=== PATIENT | male | born 1945 | race Caucasian/White ===

== ENCOUNTER → 2016-05-26 | Outpatient (CLI) | payer OTHER ==
[~2016-05-26] MED LIST: ADVIN10/60 INH; ALBU1AER9 INH; ASPI81TA28 PO; FENO134C2 PO; FLM4 PO; GLC500 PO; HYDR-5688 PO; LOVA40TA3 PO; METO25TA56 PO; ONDA4TAB10 SL; PANT40TA PO; ROSU10TA24 PO; TAMS0.4C59 PO; TRAZ100T29 PO
== END | disposition home or self-care (01) ==
LOC: C.LABMFLN 08:59
PROVIDERS: ATTEND Urology
DX: N40.0 Benign prostatic hyperplasia without lower urinary tract symptoms (principal)

== ENCOUNTER → 2016-07-07 | Outpatient (CLI) | payer OTHER ==
[2016-07-07 13:29] LABS: BLOOD UREA NITROGEN 16 mg/dl (7-18); BUN/CREATININE RATIO 13.3 (10-20); CALCIUM 9.1 mg/dl (8.5-10.1); CARBON DIOXIDE 30 mmol/L (21-32); CHLORIDE 105 mmol/L (98-107); GLUCOSE 136 mg/dl (70-99); POTASSIUM 4.6 mmol/L (3.5-5.1); SODIUM 141 mmol/L (136-145)
[2016-07-07 13:32] LABS: PHOSPHORUS 2.5 mg/dl (2.5-4.9)
[2016-07-07 13:39] LABS: ESTIMATED AVERAGE GLUCOSE 157 mg/dl; HA1C FLAG Normal (Normal)
== END | disposition home or self-care (01) ==
LOC: C.LABMFLN 11:01
PROVIDERS: ATTEND Family Medicine
DX: E11.9 Type 2 diabetes mellitus without complications (principal)

== ENCOUNTER → 2016-08-14 | Outpatient (CLI) | payer OTHER ==
--- NOTE | 2016-08-14 09:16 | DIAGNOSTIC IMAGING REPORT ---
ULTRASOUND RIGHT UPPER QUADRANT ABDOMEN CLINICAL HISTORY: Right upper quadrant abdominal pain. COMPARISON STUDY: Abdominal CT dated 04/28/2013. TECHNIQUE: Real-time, grayscale, and color flow sonography of the right upper quadrant of the abdomen was performed. Images are reviewed in the transverse and longitudinal planes. FINDINGS: Liver: The liver is enlarged and demonstrates heterogeneously increased echotexture consistent with severe hepatic steatosis. Note that this degrades acoustic penetration of the liver. Fatty sparing is seen adjacent to gallbladder fossa. There is no intrahepatic biliary ductal dilatation. The main portal vein is patent. Gallbladder: A 4 mm gallstone is noted. The gallbladder is otherwise normal in appearance. There is no gallbladder wall thickening or pericholecystic fluid. A sonographic Vu's sign is reportedly absent. The common bile duct measures up to 0.4 cm in diameter. Pancreas: Not well visualized due to overlying bowel gas. Right kidney: Survey images of the right kidney demonstrate normal size and echotexture. There is no hydronephrosis. Ascites: None. IMPRESSION: 1. No acute sonographic abnormality is identified. 2. A small gallstone is noted. 3. Hepatomegaly and severe hepatic steatosis. 4. The pancreas was not well visualized due to overlying bowel gas. Electronically signed by: Silviano Ortega M.D. 08/14/2016 9:15 AM Dictated Date/Time: 08/14/2016 9:10 AM
== END | disposition home or self-care (01) ==
LOC: C.ULTR 08:25
PROVIDERS: ATTEND Family Medicine
DX: R10.11 Right upper quadrant pain (principal); K76.0 Fatty (change of) liver, not elsewhere classified

== ENCOUNTER 2016-08-15 09:35 | Emergency (ER) | payer OTHER ==
[~2016-08-15] VITALS: Ht 172.7 cm; Wt 86.0 kg
[~2016-08-15 09:35] MED LIST changes: -ADVIN10/60 INH; -FLM4 PO; -GLC500 PO; -HYDR-5688 PO; -ONDA4TAB10 SL; -ROSU10TA24 PO
[2016-08-15 09:37] VITALS: TEMP 36.5; Ht 172.7 cm; Wt 86.0 kg
[2016-08-15] MEDS ORDERED: ONDANSETRON INJ 2 MG/ML 2 ML VIAL IV STA (09:54)
[2016-08-15] MEDS: SODIUM CHLORIDE 0.9% 1000ML 1,000 ML IV STA ×2 (09:54→10:23)
[2016-08-15] MEDS ORDERED: GLC500 PO (10:08)
[2016-08-15] MEDS ORDERED: ROSU10TA24 PO (10:08)
[2016-08-15 10:18] LABS: BASO % 0.3 %; BASO ABS # 0.02 K/uL (0-0.2); COMPLETE YES; EOS % 2.9 %; HEMATOCRIT 47.6 % (42-52); IG% 0.1 %; LYMPH % 26.8 %; LYMPH ABS # 1.95 K/uL (1.2-3.4); MEAN CELL VOLUME 96.6 fL (80-100); MEAN CORPUSCULAR HEMOGLOBIN 36.5 pg (25-34); MEAN CORPUSCULAR HGB CONC 37.8 g/dl (32-36); MEAN PLATELET VOLUME 10.8 fL (7.4-10.4); MONO % 11.1 %; NEUT % 58.8 %; PLATELET COUNT 144 K/uL (130-400); RED BLOOD COUNT 4.93 M/uL (4.7-6.1); WHITE BLOOD COUNT 7.27 K/uL (4.8-10.8)
[2016-08-15 10:22] LABS: URINE APPEARANCE CLOUDY (CLEAR); URINE COLOR ORANGE; URINE NITRITE POS (NEG); URINE SPECIFIC GRAVITY 1.027 (1.000-1.030); UROBILINOGEN NEG (NEG)
[2016-08-15 10:33] LABS: MANUAL MICROSCOPIC REQUIRED? NO; REVIEW REQ? YES
[2016-08-15 10:34] LABS: URINE BILIRUBIN NEG (NEG)
[2016-08-15 10:38] LABS: CALCIUM 8.8 mg/dl (8.5-10.1); CREATININE 1.3 mg/dl (0.60-1.40); POTASSIUM 4.4 mmol/L (3.5-5.1)
[2016-08-15 10:49] LABS: URINE EPITHELIAL CELL AUTO 0-5 /lpf (0-5)
--- NOTE | 2016-08-15 11:35 | DIAGNOSTIC IMAGING REPORT ---
CT SCAN OF THE ABDOMEN AND PELVIS WITHOUT CONTRAST CLINICAL HISTORY: Right flank pain COMPARISON STUDY: 04/28/2013 TECHNIQUE: CT scan of the abdomen and pelvis was performed from the lung bases to the proximal femurs. Images are reviewed in the axial, sagittal, and coronal planes. IV contrast was not administered for this examination. CT DOSE: 487.67 mGy.cm FINDINGS: Lower chest: The heart is normal in size and configuration, without pericardial effusion. The lung bases and pleural spaces are clear. Liver: There is hepatic steatosis. No focal masses are visualized. Gallbladder: Unremarkable. Spleen: Normal in size and attenuation. Pancreas: Unremarkable. Adrenal glands: Unremarkable. Kidneys: No renal, ureteral, or bladder calculi are visualized. Bowel: There are no transition zones indicate bowel obstruction. There are scattered air-fluid levels in the colon. There is no acute diverticulitis. There is no nodes of acute appendicitis. Peritoneum: There is no intraperitoneal free air or abdominal ascites. Vasculature: The abdominal aorta is normal in course and caliber. Adenopathy: None. Pelvic viscera: The bladder, and pelvic viscera are unremarkable. Skeletal structures: No destructive osseous lesions are seen. There is partial ankylosis of the SI joints. IMPRESSION: 1. No renal, ureteral, or bladder calculi identified 2. Hepatic steatosis 3. No evidence of bowel obstruction. No evidence of free air 4. No acute inflammatory changes Electronically signed by: Noel Lawson M.D. 08/15/2016 11:34 AM Dictated Date/Time: 08/15/2016 11:24 AM
[2016-08-15] MEDS ORDERED: ONDA4TAB10 SL (12:08)
[2016-08-15 12:44] VITALS: BP 134/92; PULSE 65; O2SAT 96
--- NOTE | 2016-08-15 14:53 | EMERGENCY ROOM VISIT NOTE ---
History Report prepared by Eran: Zahraa Ball Under the Supervision of: Dr. Jacek Fraga M.D. First contact with patient: 09:42 Chief Complaint: DIARRHEA Stated Complaint: SEVERE DIARRHEA History of Present Illness The patient is a 70 year old male who presents to the Emergency Room with complaints of persistent diarrhea starting early yesterday morning. He states that he began getting sick 1 week ago when he went to an emergency room in [place] with abdominal pain. He was instructed to follow up upon returning home and presented to the ED yesterday after he started getting severe diarrhea early yesterday morning. He states that he is going to the bathroom constantly and his stool is all water. Yesterday afternoon, he also experienced some vomiting after eating a small amount of soup. He had some upper abdominal pain, which resolved after vomiting yesterday. He has not vomiting since. Last night he reports he went to the bathroom 4-5 times. He denies any blood in his stools , urinary symptoms, fever, chest pain, or SOB. He had a moment of nausea yesterday, but is currently not nauseous. Currently, he is slightly fatigued. He denies any sick contacts. He has not been on antibiotics recently. Source of History: patient Onset: yesterday morning Position: other (global) Quality: other (diarrhea) Timing: other (persistent) Associated Symptoms: + fatigue, + nausea, + vomiting, No SOB, No abdominal pain, No chest pain, No fevers, No melena, No urinary symptoms Review of Systems See HPI for pertinent positives & negatives. A total of 10 systems reviewed and were otherwise negative. Past Medical & Surgical Medical Problems: (1) Degenerative disc disease, lumbar (2) Diabetes (3) HLD (hyperlipidemia) (4) HTN (hypertension) Surgical Problems: (1) S/P colon resection Family History Patient reports no known family medical history. Social History Smoking Status: Former Smoker Drug Use: none Marital Status: Housing Status: lives with significant other Current/Historical Medications Scheduled Aspirin (Aspirin Ec), 81 MG PO HS Metformin HCl (Metformin HCl), 500 MG PO BID Metoprolol Tartrate (Lopressor) (Lopressor), 25 MG PO BID Ondasetron Odt (Zofran Odt), 4 MG SL Q6H Pantoprazole (Protonix), 40 MG PO QAM Rosuvastatin Calcium (Rosuvastatin Calcium), 10 MG PO DAILY Allergies Coded Allergies: NSAIDs (Verified Adverse Reaction, Mild, UPSET STOMACH/ABDOMINAL PAINS, ) Prednisone (Verified Adverse Reaction, Mild, GI UPSET, ABDOMINAL CRAMPING , 03/11/16) Physical Exam Vital Signs Date Time Temp Pulse Resp B/P Pulse Ox O2 Delivery O2 Flow Rate FiO2 08/15/16 12:44 65 18 134/92 96 08/15/16 11:28 63 18 135/79 97 Room Air 08/15/16 09:37 36.5 70 20 122/86 97 Room Air Physical Exam Constitutional: Vital signs reviewed. Eyes: Pupils are equal round reactive to light. Conjunctiva are noninjected. ENT: Pharynx is clear without erythema or exudate. Mucous membranes are moist. Neck supple without meningeal signs. Respiratory: Clear to auscultation bilaterally. Breath sounds are equal bilaterally. Cardiovascular: Regular rate and rhythm. No rubs or gallops. GI: Soft, nondistended. Bowel sounds are present. Mild epigastric & RUQ tenderness without guarding or Vu's sign. Musculoskeletal: No peripheral edema. No lower extremity tenderness. Integumentary: No cyanosis. Neurological: The patient is awake and alert. No focal deficits. Psychiatric: Normal affect. Medical Decision & Procedures ER Provider Diagnostic Interpretation: Radiology results as stated below per my review and the radiologist's interpretation: CT SCAN OF THE ABDOMEN AND PELVIS WITHOUT CONTRAST CLINICAL HISTORY: Right flank pain COMPARISON STUDY: 04/28/2013 TECHNIQUE: CT scan of the abdomen and pelvis was performed from the lung bases to the proximal femurs. Images are reviewed in the axial, sagittal, and coronal planes. IV contrast was not administered for this examination. CT DOSE: 487.67 mGy.cm FINDINGS: Lower chest: The heart is normal in size and configuration, without pericardial effusion. The lung bases and pleural spaces are clear. Liver: There is hepatic steatosis. No focal masses are visualized. Gallbladder: Unremarkable. Spleen: Normal in size and attenuation. Pancreas: Unremarkable. Adrenal glands: Unremarkable. Kidneys: No renal, ureteral, or bladder calculi are visualized. Bowel: There are no transition zones indicate bowel obstruction. There are scattered air-fluid levels in the colon. There is no acute diverticulitis. There is no nodes of acute appendicitis. Peritoneum: There is no intraperitoneal free air or abdominal ascites. Vasculature: The abdominal aorta is normal in course and caliber. Adenopathy: None. Pelvic viscera: The bladder, and pelvic viscera are unremarkable. Skeletal structures: No destructive osseous lesions are seen. There is partial ankylosis of the SI joints. IMPRESSION: 1. No renal, ureteral, or bladder calculi identified 2. Hepatic steatosis 3. No evidence of bowel obstruction. No evidence of free air 4. No acute inflammatory changes Electronically signed by: Noel Lawson M.D. 08/15/2016 11:34 AM Dictated Date/Time: 08/15/2016 11:24 AM Laboratory Results 08/15/16 10:00 Red Blood Count 4.93, Mean Corpuscular Volume 96.6, Mean Corpuscular Hemoglobin 36.5, Mean Corpuscular Hemoglobin Concent 37.8, Mean Platelet Volume 10.8, Neutrophils (%) (Auto) 58.8, Lymphocytes (%) (Auto) 26.8, Monocytes (%) (Auto) 11.1, Eosinophils (%) (Auto) 2.9, Basophils (%) (Auto) 0.3, Neutrophils # (Auto ) 4.27, Lymphocytes # (Auto) 1.95, Monocytes # (Auto) 0.81, Eosinophils # (Auto ) 0.21, Basophils # (Auto) 0.02 08/15/16 10:00 Test 08/15/16 09:55 08/15/16 10:00 Urine Color ORANGE Urine Appearance CLOUDY (CLEAR) Urine pH 5.0 (4.5-7.5) Urine Specific Pollock 1.027 (1.000-1.030) Urine Protein NEG (NEG) Urine Glucose (UA) NEG (NEG) Urine Ketones TRACE (NEG) Urine Occult Blood NEG (NEG) Urine Nitrite POS (NEG) Urine Bilirubin NEG (NEG) Urine Urobilinogen NEG (NEG) Urine Leukocyte Esterase TRACE (NEG) Urine WBC (Auto) 1-5 /hpf (0-5) Urine RBC (Auto) 0-4 /hpf (0-4) Urine Hyaline Casts (Auto) 1-5 /lpf (0-5) Urine Epithelial Cells (Auto) 0-5 /lpf (0-5) Urine Bacteria (Auto) NEG (NEG) Urine Pathogenic Casts /lpf (0) White Blood Count 7.27 K/uL (4.8-10.8) Red Blood Count 4.93 M/uL (4.7-6.1) Hemoglobin 18.0 g/dL (14.0-18.0) Hematocrit 47.6 % (42-52) Mean Corpuscular Volume 96.6 fL (80-100) Mean Corpuscular Hemoglobin 36.5 pg (25-34) Mean Corpuscular Hemoglobin Concent 37.8 g/dl (32-36) Platelet Count 144 K/uL (130-400) Mean Platelet Volume 10.8 fL (7.4-10.4) Neutrophils (%) (Auto) 58.8 % Lymphocytes (%) (Auto) 26.8 % Monocytes (%) (Auto) 11.1 % Eosinophils (%) (Auto) 2.9 % Basophils (%) (Auto) 0.3 % Neutrophils # (Auto) 4.27 K/uL (1.4-6.5) Lymphocytes # (Auto) 1.95 K/uL (1.2-3.4) Monocytes # (Auto) 0.81 K/uL (0.11-0.59) Eosinophils # (Auto) 0.21 K/uL (0-0.5) Basophils # (Auto) 0.02 K/uL (0-0.2) RDW Standard Deviation 44.5 fL (36.4-46.3) RDW Coefficient of Variation 12.8 % (11.5-14.5) Immature Granulocyte % (Auto) 0.1 % Immature Granulocyte # (Auto) 0.01 K/uL (0.00-0.02) Anion Gap 8.0 mmol/L (3-11) Est Creatinine Clear Calc Drug Dose 54.8 ml/min Estimated GFR () 63.2 Estimated GFR (Non- 54.5 BUN/Creatinine Ratio 17.0 (10-20) Calcium Level 8.8 mg/dl (8.5-10.1) Total Bilirubin 2.5 mg/dl (0.2-1) Direct Bilirubin 0.3 mg/dl (0-0.2) Aspartate Amino Transf (AST/SGOT) 26 U/L (15-37) Alanine Aminotransferase (ALT/SGPT) 71 U/L (12-78) Alkaline Phosphatase 105 U/L (45-117) Total Protein 7.8 gm/dl (6.4-8.2) Albumin 4.4 gm/dl (3.4-5.0) Lipase 121 U/L (73-393) Laboratory results as reviewed by me. Medications Administered Medications (Trade) Dose Ordered Sig/Yee Route Start Time Stop Time Status Last Admin Dose Admin Sodium Chloride (Nss 1000ml) 1,000 ml @ 200 mls/hr Q5H STAT IV 08/15/16 09:54 08/15/16 13:14 DC 08/15/16 10:23 200 MLS/HR ED Course 0947: The patient was evaluated in room B6. A complete history and physical exam was performed. 0954: NSS 1000 ml @ 200 mls/hr IV, Zofran 4 mg IV (refused). 1140: I reevaluated the patient. He says he feels better. He had no tenderness on exam. I discussed with him the test results. We are waiting on the C diff antigen test. 1205: Upon reevaluation, the patient appeared to have improvement of his symptoms. I discussed bre's findings with him. He verbalized agreement of the treatment plan. He was discharged home. Medical Decision This is a 70-year-old male who presents with vomiting and diarrhea with upper abdominal discomfort. Differential diagnosis includes gastroenteritis, dehydration, electrolyte abnormality, cholecystitis, partial bowel obstruction. I did perform a limited focused review of portions of the patient's old chart on the electronic medical record. The patient was seen in the ED yesterday. An US of the RUQ showed a 4 mm gallstone, otherwise no gallbladder abnormalities. I did evaluate the patient as noted above. Patient is presenting with vomiting and diarrhea. He did have upper abdominal pain about a week ago which has since resolved although he does have some slight tenderness in the upper abdomen today. IV access was established. I did treat the patient with IV normal saline. I did order and personally review the patient's urinalysis as described above. He does have some nitrates and Lanoxin and Estrace but no other signs of infection. He denies urinary symptoms. A urine culture was sent. I did order and review the patient's blood work as noted in the electronic medical record. His white blood cell count is not elevated. I did order a CT of the abdomen and pelvis. I did review the images myself as well as the radiology report as described above. There is no evidence of acute process. Gall bladder is unremarkable. A stool culture was sent and is pending. A C. difficile antigen test was done and negative. I did reassess the patient. He is feeling better. His symptoms seem most likely consistent with some type of viral syndrome. I did discuss the test results with him and recommended close follow up with his doctor. He was given return instructions below and discharged with a prescription for Zofran. Impression Primary Impression: Vomiting Additional Impressions: Diarrhea Mild dehydration Scribe Attestation The scribe's documentation has been prepared under my direct and personally reviewed by me in its entirety. I confirm that the note above accurately reflects all work, treatment, procedures, and medical decision making performed by me. Departure Information Dispostion Home / Self-Care Prescriptions Ondasetron Odt (ZOFRAN ODT) 4 Mg Tab 4 MG SL Q6H for Nausea, #6 TAB Prov: Jacek Fraga M.D. 08/15/16 Referrals Nakia Louise M.D. (PCP) Forms HOME CARE DOCUMENTATION FORM, IMPORTANT VISIT INFORMATION, WORK / SCHOOL INSTRUCTIONS Patient Instructions ED Vomiting Diarrhea Nonspecific Ad, My [facility] Additional Instructions You have been examined and treated today on an emergency basis only. This is not a substitute for, or an effort to provide, complete comprehensive medical care. It is impossible to recognize and treat all injuries or illnesses in a single emergency department visit. It is therefore important that you follow up closely with your physician. Call as soon as possible for an appointment. Return for worsening symptoms or if you develop fever, rectal bleeding, abdominal pain, or any other concerning symptoms. Problem Qualifiers Primary Impression: Vomiting Vomiting type: unspecified Vomiting Intractability: non-intractable Nausea presence: unspecified Qualified Codes: R11.10 - Vomiting, unspecified Additional Impressions: Diarrhea Diarrhea type: unspecified type Qualified Codes: R19.7 - Diarrhea, unspecified
[2016-09-05] MEDS ORDERED: TRAZ100T29 PO (08:39)
[2016-09-05] MEDS ORDERED: ADVIN10/60 INH (08:39)
[2016-09-11] MEDS ORDERED: HYDR-5688 PO (08:16)
== END 2016-08-15 12:45 | disposition home or self-care (01) ==
LOC: C.EDB 09:38
DX: E86.0 Dehydration (principal); R11.10 Vomiting, unspecified; R19.7 Diarrhea, unspecified; I10 Essential (primary) hypertension; E78.5 Hyperlipidemia, unspecified; E11.9 Type 2 diabetes mellitus without complications; M51.06 Intervertebral disc disorders with myelopathy, lumbar region; Z98.890 Other specified postprocedural states; Z87.891 Personal history of nicotine dependence; Z79.82 Long term (current) use of aspirin; Z79.84 Long term (current) use of oral hypoglycemic drugs; Z79.899 Other long term (current) drug therapy; Z88.8 Allergy status to other drugs, medicaments and biological substances

== ENCOUNTER 2016-09-11 05:03 | Observation (INO) | payer OTHER ==
[2016-09-05 08:40] VITALS: BMI 29.0
--- NOTE | 2016-09-05 09:18 | PAT Medication Instructions ---
Service Date Sep 05, 2016. Current Home Medication List Aspirin (Aspirin Ec), 81 MG PO HS Fluticasone Prop/Salmeterol (Advair Diskus 100/50 60 Dose), 1 PUFF INH DAILY PRN for prn Metformin HCl (Metformin HCl), 500 MG PO BID Metoprolol Tartrate (Lopressor) (Lopressor), 12.5 MG PO BID Pantoprazole (Protonix), 40 MG PO QAM Rosuvastatin Calcium (Rosuvastatin Calcium), 10 MG PO QAM Trazodone Hcl (Trazodone), 100 MG PO HS Medication Instructions For Your Scheduled Surgery - Check with surgeon for instructions: Aspirin (Aspirin Ec), 81 MG PO HS - Hold the following medications 48 hours prior to surgery: Metformin HCl (Metformin HCl), 500 MG PO BID - Take the following medications the morning of surgery with a sip of water: Pantoprazole (Protonix), 40 MG PO QAM Rosuvastatin Calcium (Rosuvastatin Calcium), 10 MG PO QAM Metoprolol Tartrate (Lopressor) (Lopressor), 12.5 MG PO BID Fluticasone Prop/Salmeterol (Advair Diskus 100/50 60 Dose), 1 PUFF INH DAILY PRN for prn - Take the following medications as scheduled the night before surgery: Trazodone Hcl (Trazodone), 100 MG PO HS Metoprolol Tartrate (Lopressor) (Lopressor), 12.5 MG PO BID Fluticasone Prop/Salmeterol (Advair Diskus 100/50 60 Dose), 1 PUFF INH DAILY PRN for prn If you have any questions please call us at [phone] (Maggie An PA-C) or [phone] or [phone]
[~2016-09-11] VITALS: Ht 172.7 cm; Wt 88.5 kg
[2016-09-11] VITALS (10 sets, daily range): BP systolic 130–147; BP diastolic 84–95; PULSE 53–68; TEMP 36.3–36.9; O2SAT 95–98; Ht 172.7 cm; Wt 88.5 kg
[~2016-09-11 05:03] MED LIST changes: +ADVIN10/60 INH; -ALBU1AER9 INH; -FENO134C2 PO; +GLC500 PO; -LOVA40TA3 PO; +ROSU10TA24 PO; -TAMS0.4C59 PO
[2016-09-11] MEDS ORDERED: LACTATED RINGER'S 1000ML IV SCH (06:00)
[2016-09-11] MEDS ORDERED: CEFUROXIME IV 1,500 MG in DEXTROSE 5% 100ML IV SCH (06:00)
--- NOTE | 2016-09-11 06:49 | History & Physical Bridge Note ---
H&P Re-Evaluation Bridge Note: I have examined the patient, reviewed the History & Physical and in the interval since the performance of the History & Physical I have noted the following changes of clinical significance: No changes noted
[2016-09-11] MEDS ORDERED: ROCURONIUM BROMID 50MG/5ML SYR ONE (06:53)
[2016-09-11] MEDS ORDERED: LIDOCAINE HCL 2% 2 ML VIAL (20MG/ML) ONE (06:53)
[2016-09-11] MEDS ORDERED: PROPOFOL IV EMULSION 10 MG/ML 20 ML VIAL IV ONE (06:53)
[2016-09-11] MEDS ORDERED: MIDAZOLAM HCL 1 MG/ML 2ML VIAL ONE (06:55)
[2016-09-11] MEDS ORDERED: FENTANYL CITRATE INJ 50 MCG/1 ML 2 ML VIAL ONE ×2 (06:55→07:37)
[2016-09-11] MEDS ORDERED: BUPIVACAINE 0.5 % 5 MG/1 ML MPF 30ML VIAL ONE (06:57)
[2016-09-11] MEDS ORDERED: CONRAY 60% 50 ML VIAL ONE (06:57)
[2016-09-11] MEDS ORDERED: DEXAMETHASONE SOD INJ 4 MG/ML VIAL ONE (07:23)
[2016-09-11] MEDS ORDERED: ONDANSETRON INJ 2 MG/ML 2 ML VIAL ONE (07:23)
[2016-09-11] MEDS ORDERED: GLYCOPYRROLATE INJ 0.2 MG/ML VIAL ONE (07:23)
[2016-09-11] MEDS ORDERED: NEOSTIGMINE METHYLSULFATE 5 MG/5 ML SYR ONE (07:23)
--- NOTE | 2016-09-11 08:07 | [facility] Post Operative Brief Note ---
Immediate Operative Summary Operative Date Sep 11, 2016. Pre-Operative Diagnosis Biliary Colic, Gallstones Post-Operative Diagnosis Biliary Colic, Gallstones, chronic cholecystitis, adhesions Procedure(s) Performed Laparoscopic Cholecystectomy, lysis of adhesions Surgeon Dr. Maloney Small Business Director Surgeon(s) JOYCELYN Akbar Estimated Blood Loss 20 ml Findings omental and small bowel adhesions and adhesions to gallbladder Specimens A. Gallbladder Anesthesia gen Complication(s) None Disposition Recovery Room / PACU
[2016-09-11] MEDS ORDERED: MoRPHine SULFATE 4 MG/ML 1 ML CARP\\VIAL IV PRN (08:15)
[2016-09-11] MEDS ORDERED: ONDANSETRON INJ 2 MG/ML 2 ML VIAL IV PRN ×2 (08:15→08:30)
[2016-09-11] MEDS ORDERED: MoRPHine SULFATE 2 MG/ML CARP IV PRN (08:15)
[2016-09-11] MEDS ORDERED: HYDROCODONE/ACETAMOPHEN 5/325MG TAB PO PRN (08:15)
[2016-09-11] MEDS ORDERED: PROMETHAZINE HCL INJ 25 MG in SODIUM CHLORIDE 0.9% 50ML 50 ML IV PRN (08:15)
[2016-09-11] MEDS ORDERED: HYDR-5688 PO (08:16)
--- NOTE | 2016-09-11 08:18 | Discharge Instructions ---
Discharge Instructions Date of Service Sep 11, 2016. Admission Reason for Admission: Gallstones, Biliary Colic, Diabetes Discharge Discharge Diagnosis / Problem: chronic cholecystitis, adhesions Discharge Goals Goal(s): Decrease discomfort, Improve function, Improve disease control Activity Recommendations Activity Limitations: as noted below Lifting Limitations: no more than 10 pounds Exercise/Sports Limitations: until after follow-up appointment May Resume Sexual Activity: when tolerated Shower/Bathe: tomorrow Driving or Machine Use: resume 3 days after discharge SPECIAL CARE INSTRUCTIONS: * Cover incisions and change daily for comfort/drainage. * May use ibuprofen for pain as tolerated. * Expect some swelling and bruising. Call your doctor if: * Temperature above 101 degrees * Pain not relieved by pain medicine ordered * There is increased drainage or redness from any incision * You have any unanswered questions or concerns [phone]. FOLLOW UP VISIT: If not already scheduled, please call the office for a follow-up visit. for next week- some sutures and wound check OFFICE PHONE NUMBER: Dr. Maloney Office . Current Hospital Diet Patient's current hospital diet: Regular Diet Discharge Diet Recommended Diet: Regular Diet Procedures Procedures Performed: Laparoscopic Cholecystectomy, lysis of adhesions Pending Studies Studies pending at discharge: no Laboratory Results Hemoglobin A1c Test 07/07/16 10:50 Range/Units Estimated Average Glucose 157 mg/dl Hemoglobin A1c 7.1 H 4.5-5.6 % Medical Emergencies . Who to Call and When: Medical Emergencies: If at any time you feel your situation is an emergency, please call 911 immediately. . Non-Emergent Contact Non-Emergency issues call your: Primary Care Provider, Surgeon . "Provider Documentation" section prepared by Ray Maloney. . VTE Core Measure Inpt VTE Proph given/why not?: SCD's
[2016-09-11] MEDS ORDERED: LABETALOL HCL IV 5 MG/ML 20ML IV PRN (08:30)
[2016-09-11] MEDS ORDERED: FLUMAZENIL 0.1 MG/1 ML 10 ML VIAL IV PRN (08:30)
[2016-09-11] MEDS ORDERED: ATROPINE SULFATE 0.1 MG/ML 5ML SYR IV PRN (08:30)
[2016-09-11] MEDS ORDERED: PROMETHAZINE HCL INJ 12.5 MG in SODIUM CHLORIDE 0.9% 50ML 50 ML IV PRN ×2 (08:30→11:15)
[2016-09-11] MEDS ORDERED: EpHEDrine SULFATE INJ 50 MG/ML AMP IV PRN (08:30)
[2016-09-11] MEDS ORDERED: NALOXONE HCL 0.4 MG/1 ML VIAL/CARP IV PRN (08:30)
[2016-09-11] MEDS ORDERED: HYDROmorphone INJ 1 MG/ML SYR IV PRN (08:30)
--- NOTE | 2016-09-11 08:49 | Anesthesiology Progress Note ---
Anesthesia Post Op Note Date & Time Sep 11, 2016 at 08:48 Vital Signs Pain Intensity: 0 Vital Signs Past 12 Hours Date Time Temp Pulse Resp B/P Pulse Ox O2 Delivery O2 Flow Rate FiO2 09/11/16 08:45 56 18 117/78 100 Nasal Cannula 3 09/11/16 08:35 56 18 113/76 100 Mask 5 09/11/16 08:25 54 20 120/73 100 Mask 10 09/11/16 08:17 36.7 56 20 127/70 99 Mask 10 09/11/16 05:39 36.5 54 18 147/86 96 Room Air Notes Mental Status: alert / awake / arousable, participated in evaluation Pt Amnestic to Procedure: Yes Nausea / Vomiting: adequately controlled Pain: adequately controlled Airway Patency, RR, SpO2: stable & adequate BP & HR: stable & adequate Hydration State: stable & adequate Anesthetic Complications: no major complications apparent
[2016-09-11] MEDS ORDERED: IV FLUIDS COMPLETED PRN (09:15)
[2016-09-11] MEDS: LACTATED RINGER'S 1000ML 1,000 ML IV SCH ×2 (09:25→21:00)
--- NOTE | 2016-09-11 09:27 | OPERATIVE REPORT ---
DATE OF OPERATION: 09/11/2016 NAME OF OPERATION: Laparoscopic cholecystectomy with omental lysis of adhesions. STAFF SURGEON: Dr. Maloney. LIVE GAMES DEALER: Juvenal Henry PA-C. ANESTHESIA: General. PROCEDURE: The patient was brought in the operating room and placed on the operating table in supine position. His abdomen was and prepped and draped in usual fashion. The patient did have a midline incision with scar from previous colon surgery from above the umbilicus inferiorly. Incision was made at the level of the umbilicus and just above through the previous scar, dissecting to the right, identifying the fascia. The fascia was then opened visibly and it was apparent that the patient had significant adhesions which appeared to be omental. At this point, I thought it was prudent to proceed to the right upper quadrant. Again, the skin and subcutaneous tissue was anesthetized using 0.5% plain Marcaine at all incisions. Incision was made in the right upper quadrant, carrying dissection down, identifying the fascia, and then under visualization, entering the abdominal cavity, placing a 5 mm port, and then producing a pneumoperitoneum. At this point, a 5 mm camera was passed and it was evident that the patient had significant omental adhesions and small-bowel adhesions. At this point, I was able to place a second port in the midline superiorly, and then using a 5 mm camera, I was able to place a third 5 mm port in the mid clavicular line on the right side. At this point, I was able to take some of the omental adhesions down in the midline and place an 11 mm port under visualization. At this point, the gallbladder was grasped and retracted, it was aspirated off bile. There were adhesions to the gallbladder, these were taken down, and then dissection carried out at the neftali hepatis, identifying the cystic duct and cystic artery. These were clipped and transected and then the gallbladder dissected away from the liver bed in the usual fashion. Gallbladder was placed in an Endobag. After appropriate hemostasis and irrigation, the Endobag was removed under visualization through the 11 mm port. All ports were then removed. The fascia in the right upper quadrant and periumbilical area was closed using 0 Vicryl suture and also #1 PDS suture. The incisions were then all closed using 2-0 plain catgut for the subcutaneous tissue and 4-0 nylon for the skin. The patient was then transferred to recovery room in stable condition. I attest to the content of the Intraoperative Record and any orders documented therein. Any exceptio ns are noted below.
[2016-09-11] MEDS ORDERED: GLUCOSE 10 TABS/TUBE PO PRN (11:30)
[2016-09-11] MEDS ORDERED: GLUCAGON FOR INJ 1 MG VIAL SQ PRN (11:30)
[2016-09-11] MEDS ORDERED: GLUCOSE 40% GEL 15 GM TUBE PO PRN (11:30)
[2016-09-11] MEDS ORDERED: DEXTROSE 50% 50 ML SYR IV PRN (11:30)
--- NOTE | 2016-09-11 11:40 | Medical Consult ---
Consultation Date of Consultation: Sep 11, 2016. Attending Physician: Ray Maloney M.D. Reason for Consultation: Medical management History of Present Illness This is a 70 y/o male with a history of DM II, HTN, HLD, asthma, GERD, BPH, and insomnia who presents s/p laparoscopic cholecystectomy with Dr. Maloney on 09/11 for medical management. The patient reports feeling well postoperatively, although he does complain of soreness in his RUQ that is getting worse. He ate his lunch without difficulty and has already urinated. He denies passing any gas or having a bowel movement post op. The patient denies fevers, chills, sweats, chest pain, palpitations, claudication, cough, wheezing, shortness of breath, nausea, vomiting, abdominal pain, dysuria, hematuria, urinary retention , paralysis, weakness, numbness and tingling. Past Medical/Surgical History Medical Problems: DM II HTN HLD Asthma GERD BPH Insomnia H/o tubular adenoma of colon Family History Abdominal aortic aneurysm (AAA) Colon cancer Coronary artery disease Stroke Social History Smoking Status: Former Smoker Smokeless Tobacco Use: No Alcohol Use: none Drug Use: none Marital Status: Housing Status: lives with significant other Allergies Coded Allergies: NSAIDs (Verified Adverse Reaction, Mild, UPSET STOMACH/ABDOMINAL PAINS, ) Prednisone (Verified Adverse Reaction, Mild, GI UPSET, ABDOMINAL CRAMPING , 09/11/16) Current Inpatient Medications Current Inpatient Medications Medications (Trade) Dose Ordered Sig/Yee Route Start Time Stop Time Status Last Admin Dose Admin Cefuroxime Sodium 1500 mg/Dextrose 115 ml @ 230 mls/hr TODAY@0600 IV 09/11/16 06:00 09/11/16 15:59 09/11/16 06:57 230 MLS/HR Lactated Ringer's 1,000 ml @ 75 mls/hr [id number] IV 09/11/16 08:07 10/11/16 08:06 Cefuroxime Sodium/ Dextrose (Zinacef Iv/D5 100ml) 115 ml @ 200 mls/hr Q8 IV 09/11/16 14:00 09/21/16 13:59 Acetaminophen/ Hydrocodone Bitart ([place] 5/325 Tab) 1 tab Q4 PRN PO 09/11/16 08:15 09/25/16 08:14 Acetaminophen/ Hydrocodone Bitart ([place] 5/325 Tab) 2 tab Q4 PRN PO 09/11/16 08:15 09/25/16 08:14 Morphine Sulfate (MoRPHine SULFATE INJ) 2 mg Q4H PRN IV 09/11/16 08:15 09/25/16 08:14 Morphine Sulfate 4 mg 4 mg Q4H PRN IV 09/11/16 08:15 09/25/16 08:14 Promethazine HCl/ Sodium Chloride (Phenergan Inj/ Nss 50ml) 51 ml @ 204 mls/hr Q6H PRN IV 09/11/16 08:15 10/11/16 08:14 Ondansetron HCl (Zofran Inj) 4 mg Q6H PRN IV 09/11/16 08:15 10/11/16 08:14 Hydromorphone HCl (Dilaudid Inj) 0.25 mg Q5M PRN IV 09/11/16 08:30 09/11/16 13:30 Naloxone HCl (Narcan Inj) 0.2 mg Q2M PRN IV 09/11/16 08:30 09/11/16 13:30 Flumazenil (Romazicon Inj) 0.2 mg Q2M PRN IV 09/11/16 08:30 09/11/16 13:30 Ondansetron HCl 4 mg 4 mg ONE PRN IV 09/11/16 08:30 09/11/16 13:30 Promethazine HCl/ Sodium Chloride (Phenergan Inj/ Nss 50ml) 50.5 ml @ 202 mls/hr ONE PRN IV 09/11/16 08:30 09/11/16 13:30 Labetalol HCl (Normodyne IV) 5 mg Q5M PRN IV 09/11/16 08:30 09/11/16 13:30 Ephedrine Sulfate (EpHEDrine SULFATE INJ) 5 mg Q5M PRN IV 09/11/16 08:30 09/11/16 13:30 Atropine Sulfate (Atropine Sulfate 0.1MG/Ml Inj) 0.5 mg Q1M PRN IV 09/11/16 08:30 09/11/16 13:30 Miscellaneous 1 ea 1 ea PRN PRN N/A 09/11/16 09:15 09/11/17 09:14 Promethazine HCl/ Sodium Chloride (Phenergan Inj/ Nss 50ml) 50.5 ml @ 204 mls/hr Q6H PRN IV 09/11/16 11:15 10/11/16 11:14 Review of Systems See HPI for pertinent positives and negatives. All other systems reviewed and negative. Physical Exam Date Time Temp Pulse Resp B/P Pulse Ox O2 Delivery O2 Flow Rate FiO2 09/11/16 11:10 36.3 64 16 142/85 96 Room Air 09/11/16 10:14 36.4 68 17 136/88 97 Nasal Cannula 2.0 09/11/16 09:40 36.4 53 17 133/87 98 Nasal Cannula 09/11/16 08:55 36.7 56 18 128/85 99 Nasal Cannula 3 09/11/16 08:45 56 18 117/78 100 Nasal Cannula 3 09/11/16 08:35 56 18 113/76 100 Mask 5 09/11/16 08:25 54 20 120/73 100 Mask 10 09/11/16 08:17 36.7 56 20 127/70 99 Mask 10 09/11/16 05:39 36.5 54 18 147/86 96 Room Air General Appearance: WD/WN, no apparent distress Head: normocephalic, atraumatic Eyes: normal inspection, PERRL, EOMI, + pertinent finding (pinpoint pupils bilaterally) ENT: normal ENT inspection, hearing grossly normal, pharynx normal Neck: supple, no JVD, trachea midline Respiratory/Chest: lungs clear, normal breath sounds, no respiratory distress Cardiovascular: regular rate, rhythm, no gallop, no murmur Abdomen/GI: normal bowel sounds, soft, + tenderness (RUQ, incision sites TTP), + pertinent finding (incision sites dressed, c/d/i) Extremities/Musculoskelatal: normal inspection, no calf tenderness, no pedal edema Neurologic/Psych: alert, normal mood/affect, oriented x 3 Skin: normal color, warm/dry, no rash Laboratory Results Last 24 Hours Test 09/11/16 05:49 09/11/16 08:32 09/11/16 09:26 Bedside Glucose 147 mg/dl 164 mg/dl 164 mg/dl Assessment & Plan 70 y/o male with a history of DM II, HTN, HLD, asthma, GERD, BPH, and insomnia who presents s/p laparoscopic cholecystectomy with Dr. Maloney on 09/11 for medical management. -Pain management, DVT prophylaxis per primary team -POD #0 -Tolerating PO diet, no voiding difficulties Diabetes mellitus type 2--Last HgbA1c was 7.1 on 07/07/16 -Hold metformin -Insulin sliding scale -Check BSGs q ac and qhs HTN--stable -Continue Lopressor 12.5 mg PO qd HLD--stable -Continue rosuvastatin 10 mg PO qd Asthma -Continue Advair BID, ProAir prn GERD -Continue Protonix 40 mg PO qd Insomnia -Continue trazodone 100 mg PO qhs Thank you for this consultation. We will continue to follow. Attending Admission Note & Attestation: Pt seen/examined, chart reviewed, and care plan d/w JOYCELYN Catalan. I agree w/ the nuñez components of her consult documentation. 70yo male with T2DM/HTN who underwent elective lap sylvain today by Dr. Maloney. Post-op resting comfortably. Denied sob/cough. Mild abdominal pain. Tolerating food/liquid. VSS o2 sats nl gen - nad heart - RRR lungs - CTA b/l except mild dry rales bases abd - mild distension, BS+, no HSM, incisions covered w/ clean dressings, mild incisional tenderness A/P: s/p lap sylvain T2DM - agree w/ Ms. Catalan's plan; add lantus daily if needed HTN - cont home meds asthma - not in exacerbation Kelvin Lowe MD
[2016-09-11 12:58] LABS: BASO % 0.3 %; BASO ABS # 0.02 K/uL (0-0.2); COMPLETE YES; EOS % 0.3 %; HEMATOCRIT 42.3 % (42-52); IG% 0.1 %; LYMPH % 14.1 %; LYMPH ABS # 1.05 K/uL (1.2-3.4); MEAN CELL VOLUME 97.9 fL (80-100); MEAN CORPUSCULAR HEMOGLOBIN 35.4 pg (25-34); MEAN CORPUSCULAR HGB CONC 36.2 g/dl (32-36); MEAN PLATELET VOLUME 10.9 fL (7.4-10.4); MONO % 1.9 %; NEUT % 83.3 %; PLATELET COUNT 137 K/uL (130-400); RED BLOOD COUNT 4.32 M/uL (4.7-6.1); WHITE BLOOD COUNT 7.44 K/uL (4.8-10.8)
[2016-09-11] MEDS: INSULIN ASPART 100 UNITS/ML 3 ML PEN SC SCH ×3 (13:12→20:59)
[2016-09-11] MEDS: CEFUROXIME IV 1,500 MG in DEXTROSE 5% 100ML 100 ML IV SCH ×2 (13:15→21:03)
[2016-09-11 13:42] LABS: BUN/CREATININE RATIO 14.9 (10-20); CREATININE 1.2 mg/dl (0.60-1.40); POTASSIUM 4.1 mmol/L (3.5-5.1)
[2016-09-11 13:45] LABS: CALCIUM 8.7 mg/dl (8.5-10.1)
[2016-09-11] MEDS: DOCUSATE SODIUM/SENNA 50/8.6MG TAB PO SCH ×2 (14:14→20:55)
[2016-09-11] MEDS: HYDROCODONE/ACETAMOPHEN 5/325MG TAB PO PRN (22:13)
[2016-09-12 03:40] VITALS: BP 146/81; PULSE 63; TEMP 36.5; O2SAT 97
[2016-09-12] MEDS: HYDROCODONE/ACETAMOPHEN 5/325MG TAB PO PRN ×2 (04:50→16:30)
[2016-09-12] MEDS: CEFUROXIME IV 1,500 MG in DEXTROSE 5% 100ML 100 ML IV SCH ×3 (06:01→21:49)
[2016-09-12 06:04] LABS: BASO % 0.2 %; BASO ABS # 0.02 K/uL (0-0.2); COMPLETE YES; EOS % 0.5 %; HEMATOCRIT 40.6 % (42-52); IG% 0.3 %; LYMPH % 19.8 %; LYMPH ABS # 2.29 K/uL (1.2-3.4); MEAN CELL VOLUME 97.8 fL (80-100); MEAN CORPUSCULAR HEMOGLOBIN 35.7 pg (25-34); MEAN CORPUSCULAR HGB CONC 36.5 g/dl (32-36); MEAN PLATELET VOLUME 10.9 fL (7.4-10.4); MONO % 7.3 %; NEUT % 71.9 %; PLATELET COUNT 146 K/uL (130-400); RED BLOOD COUNT 4.15 M/uL (4.7-6.1); WHITE BLOOD COUNT 11.57 K/uL (4.8-10.8)
--- NOTE | 2016-09-12 06:06 | Surgery Progress Note ---
Surgery Progress Note Date of Service Sep 12, 2016. Subjective Post OP Day: 1 some urinary retention- feels ok now- req str cath during night Objective Vital Signs: Date Time Temp Pulse Resp B/P Pulse Ox O2 Delivery O2 Flow Rate FiO2 09/12/16 03:40 36.5 63 18 146/81 97 Room Air 09/12/16 00:00 Room Air 09/11/16 22:51 36.5 59 16 130/85 97 Room Air 09/11/16 19:22 36.9 62 18 134/87 96 Room Air 09/11/16 16:00 96 Room Air 09/11/16 15:16 36.8 62 18 133/84 96 Room Air 09/11/16 12:10 62 18 146/95 96 Room Air 09/11/16 11:10 36.3 64 16 142/85 96 Room Air 09/11/16 10:14 36.4 68 17 136/88 97 Nasal Cannula 2.0 09/11/16 09:40 36.4 53 17 133/87 98 Nasal Cannula 09/11/16 09:10 95 Nasal Cannula 2.0 09/11/16 09:10 95 Nasal Cannula 2.0 09/11/16 09:10 36.5 58 16 137/87 95 Nasal Cannula 2.0 09/11/16 08:55 36.7 56 18 128/85 99 Nasal Cannula 3 09/11/16 08:45 56 18 117/78 100 Nasal Cannula 3 09/11/16 08:35 56 18 113/76 100 Mask 5 09/11/16 08:25 54 20 120/73 100 Mask 10 09/11/16 08:17 36.7 56 20 127/70 99 Mask 10 General Appearance: no apparent distress Respiratory/Chest: no respiratory distress Abdomen: soft Incision(s): intact Laboratory Results: Results Past 24 Hours Test 09/11/16 08:32 09/11/16 09:26 09/11/16 11:55 09/11/16 12:00 Range/Units Bedside Glucose 164 164 220 70-99 mg/dl White Blood Count 7.44 4.8-10.8 K/uL Red Blood Count 4.32 4.7-6.1 M/uL Hemoglobin 15.3 14.0-18.0 g/dL Hematocrit 42.3 42-52 % Mean Corpuscular Volume 97.9 80-100 fL Mean Corpuscular Hemoglobin 35.4 25-34 pg Mean Corpuscular Hemoglobin Concent 36.2 32-36 g/dl Platelet Count 137 130-400 K/uL Mean Platelet Volume 10.9 7.4-10.4 fL Neutrophils (%) (Auto) 83.3 % Lymphocytes (%) (Auto) 14.1 % Monocytes (%) (Auto) 1.9 % Eosinophils (%) (Auto) 0.3 % Basophils (%) (Auto) 0.3 % Neutrophils # (Auto) 6.20 1.4-6.5 K/uL Lymphocytes # (Auto) 1.05 1.2-3.4 K/uL Monocytes # (Auto) 0.14 0.11-0.59 K/uL Eosinophils # (Auto) 0.02 0-0.5 K/uL Basophils # (Auto) 0.02 0-0.2 K/uL RDW Standard Deviation 45.8 36.4-46.3 fL RDW Coefficient of Variation 12.7 11.5-14.5 % Immature Granulocyte % (Auto) 0.1 % Immature Granulocyte # (Auto) 0.01 0.00-0.02 K/uL Sodium Level 139 136-145 mmol/L Potassium Level 4.1 3.5-5.1 mmol/L Chloride Level 103 98-107 mmol/L Carbon Dioxide Level 28 21-32 mmol/L Anion Gap 8.0 3-11 mmol/L Blood Urea Nitrogen 18 7-18 mg/dl Creatinine 1.20 0.60-1.40 mg/dl Est Creatinine Clear Calc Drug Dose 60.2 ml/min Estimated GFR () 69.6 Estimated GFR (Non- 60.1 BUN/Creatinine Ratio 14.9 10-20 Random Glucose 229 70-99 mg/dl Calcium Level 8.7 8.5-10.1 mg/dl Test 09/11/16 17:02 09/11/16 20:17 09/12/16 05:24 Range/Units Bedside Glucose 225 234 70-99 mg/dl Assessment & Plan 09/12/16- s/p ezekiel sylvain, had some ur retention- monitor progress- may need norman with leg bag for home. Possible d/c later today
[2016-09-12 06:38] LABS: BUN/CREATININE RATIO 14.3 (10-20); CALCIUM 8.5 mg/dl (8.5-10.1); CREATININE 1.1 mg/dl (0.60-1.40); POTASSIUM 3.8 mmol/L (3.5-5.1)
[2016-09-12 07:45] VITALS: BP 144/91; PULSE 52; TEMP 36.4; O2SAT 98
[2016-09-12] MEDS ORDERED: TAMSULOSIN HCL 0.4 MG CAP PO ONE (08:00)
--- NOTE | 2016-09-12 09:01 | Anesthesiology Progress Note ---
Anesthesia Post Op Note Date & Time Sep 12, 2016 at 08:59 Vital Signs Pain Intensity: 2.0 Vital Signs Past 12 Hours Date Time Temp Pulse Resp B/P Pulse Ox O2 Delivery O2 Flow Rate FiO2 09/12/16 07:45 36.4 52 16 144/91 98 Room Air 09/12/16 07:20 Room Air 09/12/16 03:40 36.5 63 18 146/81 97 Room Air 09/12/16 00:00 Room Air 09/11/16 22:51 36.5 59 16 130/85 97 Room Air Notes Mental Status: alert / awake / arousable, participated in evaluation Pt Amnestic to Procedure: Yes Nausea / Vomiting: adequately controlled Pain: adequately controlled Airway Patency, RR, SpO2: stable & adequate BP & HR: stable & adequate Hydration State: stable & adequate Anesthetic Complications: no major complications apparent
--- NOTE | 2016-09-12 09:20 | Progress Note ---
Subjective Date of Service: Sep 12, 2016. Subjective Pt evaluation today including: conversation w/ patient, physical exam, review of inpatient medication list Had acute urinary retention overnight, reports it happens with him post- procedure. Follows with urologist outpatient and seen recently and was never told of any issues or that he may have BPH. Otherwise, tolerated breakfast, no flatus/BM at time of exam. Problem List Medical Problems: (1) Bursitis of right hip Status: Acute (2) Herniated disc Status: Acute (3) Lumbar radiculopathy Status: Acute (4) Sialoadenitis of submandibular gland Status: Acute Review of Systems All Other Systems: Reviewed and Negative Medications Acetaminophen/ Hydrocodone Bitart ([place] 5/325 Tab) 1 tab Q4 PRN PO Last administered on 09/12/16 16:30; Admin Dose 1 TAB; Start 09/11/16 at 08:15; Stop 09/25/16 at 08:14 Acetaminophen/ Hydrocodone Bitart ([place] 5/325 Tab) 2 tab Q4 PRN PO; Start at 08:15; Stop 09/25/16 at 08:14 Cefuroxime Sodium/ Dextrose (Zinacef Iv/D5 100ml) 115 ml @ 200 mls/hr Q8 IV Last administered on 09/12/16 13:59; Admin Dose 200 MLS/HR; Start 09/11/16 at 14:00; Stop 09/21/16 at 13:59 Dextrose (Dextrose 50% 50ML Syringe) 25-50ML OF 50% DW IV FOR... UD PRN IV; Start 09/11/16 at 11:30; Stop 10/11/16 at 11:29 Glucagon (Glucagon Inj) 1 mg UD PRN SQ; Start 09/11/16 at 11:30; Stop 10/11/16 at 11:29 Glucose (Glucose 40% Gel) 15-30 GRAMS 15 GRAMS... UD PRN PO; Start 09/11/16 at 11:30; Stop 10/11/16 at 11:29 Glucose (Glucose Chew Tab) 4-8 Tablets 4 Tabl... UD PRN PO; Start 09/11/16 at 11:30; Stop 10/11/16 at 11:29 Insulin Aspart (novoLOG ASPART) SLIDING SCALE G... ACHS SC Last administered on 09/12/16 14:02; Admin Dose 1 UNITS; Start 09/11/16 at 12:00; Stop 10/11/16 at 11:59 Magnesium Hydroxide (Milk Of Magnesia Susp) 30 ml BID PO Last administered on 09:24; Admin Dose 30 ML; Start 09/12/16 at 08:00; Stop 10/12/16 at 07:59 Miscellaneous 1 ea 1 ea PRN PRN N/A; Start 09/11/16 at 09:15; Stop 09/11/17 at 09:14 Morphine Sulfate (MoRPHine SULFATE INJ) 2 mg Q4H PRN IV Last administered on 00:09; Admin Dose 2 MG; Start 09/11/16 at 08:15; Stop 09/25/16 at 08:14 Morphine Sulfate 4 mg 4 mg Q4H PRN IV; Start 09/11/16 at 08:15; Stop 09/25/16 at 08:14 Ondansetron HCl (Zofran Inj) 4 mg Q6H PRN IV; Start 09/11/16 at 08:15; Stop at 08:14 Promethazine HCl/ Sodium Chloride (Phenergan Inj/ Nss 50ml) 50.5 ml @ 204 mls/ hr Q6H PRN IV; Start 09/11/16 at 11:15; Stop 10/11/16 at 11:14 Promethazine HCl/ Sodium Chloride (Phenergan Inj/ Nss 50ml) 51 ml @ 204 mls/hr Q6H PRN IV; Start 09/11/16 at 08:15; Stop 10/11/16 at 08:14 Senna/Docusate Sodium (Senokot S Tab) 1 tab BID PO Last administered on 09:23; Admin Dose 1 TAB; Start 09/11/16 at 14:00; Stop 10/11/16 at 13:59 Tamsulosin HCl (Flomax Cap) 0.4 mg HS PO; Start 09/12/16 at 21:00; Stop at 20:59 Objective Vital Signs Date Time Temp Pulse Resp B/P Pulse Ox O2 Delivery O2 Flow Rate FiO2 09/12/16 07:45 36.4 52 16 144/91 98 Room Air 09/12/16 07:20 Room Air 09/12/16 03:40 36.5 63 18 146/81 97 Room Air 09/12/16 00:00 Room Air 09/11/16 22:51 36.5 59 16 130/85 97 Room Air 09/11/16 19:22 36.9 62 18 134/87 96 Room Air 09/11/16 16:00 96 Room Air 09/11/16 15:16 36.8 62 18 133/84 96 Room Air 09/11/16 12:10 62 18 146/95 96 Room Air 09/11/16 11:10 36.3 64 16 142/85 96 Room Air 09/11/16 10:14 36.4 68 17 136/88 97 Nasal Cannula 2.0 09/11/16 09:40 36.4 53 17 133/87 98 Nasal Cannula Physical Exam Comments: nad, aox3 anicteric s1 s2 rrr, no murmurs appreciated ctab no w/r/r abd soft nt/nd +BS Laboratory Results Last 24 Hours Test 09/11/16 09:26 09/11/16 11:55 09/11/16 12:00 09/11/16 17:02 Bedside Glucose 164 mg/dl 220 mg/dl 225 mg/dl White Blood Count 7.44 K/uL Red Blood Count 4.32 M/uL Hemoglobin 15.3 g/dL Hematocrit 42.3 % Mean Corpuscular Volume 97.9 fL Mean Corpuscular Hemoglobin 35.4 pg Mean Corpuscular Hemoglobin Concent 36.2 g/dl Platelet Count 137 K/uL Mean Platelet Volume 10.9 fL Neutrophils (%) (Auto) 83.3 % Lymphocytes (%) (Auto) 14.1 % Monocytes (%) (Auto) 1.9 % Eosinophils (%) (Auto) 0.3 % Basophils (%) (Auto) 0.3 % Neutrophils # (Auto) 6.20 K/uL Lymphocytes # (Auto) 1.05 K/uL Monocytes # (Auto) 0.14 K/uL Eosinophils # (Auto) 0.02 K/uL Basophils # (Auto) 0.02 K/uL RDW Standard Deviation 45.8 fL RDW Coefficient of Variation 12.7 % Immature Granulocyte % (Auto) 0.1 % Immature Granulocyte # (Auto) 0.01 K/uL Sodium Level 139 mmol/L Potassium Level 4.1 mmol/L Chloride Level 103 mmol/L Carbon Dioxide Level 28 mmol/L Anion Gap 8.0 mmol/L Blood Urea Nitrogen 18 mg/dl Creatinine 1.20 mg/dl Est Creatinine Clear Calc Drug Dose 60.2 ml/min Estimated GFR () 69.6 Estimated GFR (Non- 60.1 BUN/Creatinine Ratio 14.9 Random Glucose 229 mg/dl Calcium Level 8.7 mg/dl Test 09/11/16 20:17 09/12/16 05:24 09/12/16 08:19 Bedside Glucose 234 mg/dl 195 mg/dl White Blood Count 11.57 K/uL Red Blood Count 4.15 M/uL Hemoglobin 14.8 g/dL Hematocrit 40.6 % Mean Corpuscular Volume 97.8 fL Mean Corpuscular Hemoglobin 35.7 pg Mean Corpuscular Hemoglobin Concent 36.5 g/dl Platelet Count 146 K/uL Mean Platelet Volume 10.9 fL Neutrophils (%) (Auto) 71.9 % Lymphocytes (%) (Auto) 19.8 % Monocytes (%) (Auto) 7.3 % Eosinophils (%) (Auto) 0.5 % Basophils (%) (Auto) 0.2 % Neutrophils # (Auto) 8.31 K/uL Lymphocytes # (Auto) 2.29 K/uL Monocytes # (Auto) 0.85 K/uL Eosinophils # (Auto) 0.06 K/uL Basophils # (Auto) 0.02 K/uL RDW Standard Deviation 45.8 fL RDW Coefficient of Variation 12.8 % Immature Granulocyte % (Auto) 0.3 % Immature Granulocyte # (Auto) 0.04 K/uL Sodium Level 139 mmol/L Potassium Level 3.8 mmol/L Chloride Level 104 mmol/L Carbon Dioxide Level 28 mmol/L Anion Gap 7.0 mmol/L Blood Urea Nitrogen 16 mg/dl Creatinine 1.10 mg/dl Est Creatinine Clear Calc Drug Dose 65.6 ml/min Estimated GFR () 77.3 Estimated GFR (Non- 66.7 BUN/Creatinine Ratio 14.3 Random Glucose 188 mg/dl Calcium Level 8.5 mg/dl Assessment and Plan 1. acute urinary retention - probably post-op/post-anesthesia - rechecked PVR, now >500 - straight cath now, check PVR Qshift and straight cath as needed >300 cc - will resume flomax tonight and cont to monitor for now - if he continues to retain >300-400cc of urine, he may need to go home with a norman vs intermittent cath at home and follow-up with his urologist 2. s/p lap sylvain - tolerating diet - pain regimen - discharge per surgical team 3. HTN - will resume lopressor 12.5 mg BID 4. T2DM - holding metformin - will give basal 10 unit and cont ISS 5. dvt ppx per surgical team
[2016-09-12] MEDS: DOCUSATE SODIUM/SENNA 50/8.6MG TAB PO SCH ×2 (09:23→21:47)
[2016-09-12] MEDS: MAGNESIUM HYDROXIDE SUSP 30 ML UDC PO SCH ×2 (09:24→21:47)
[2016-09-12] MEDS: INSULIN ASPART 100 UNITS/ML 3 ML PEN SC SCH ×4 (09:26→21:00)
[2016-09-12 11:07] VITALS: BP 151/94; PULSE 63; TEMP 36.7; O2SAT 97
[2016-09-12 15:03] VITALS: BP 133/76; PULSE 67; TEMP 36.6; O2SAT 96
[2016-09-12] MEDS ORDERED: INSULIN GLARGINE PER UNIT 10 UNITS in SYRINGE 0 ML SC ONE (21:00)
[2016-09-12] MEDS ORDERED: LANTUS PER UNIT CHARGE SQ SCH (21:00)
[2016-09-12] MEDS ORDERED: TAMSULOSIN HCL 0.4 MG CAP PO SCH (21:00)
[2016-09-12] MEDS: METOPROLOL TARTRATE 25 MG TAB PO SCH (21:48)
[2016-09-12 22:47] VITALS: BP 127/84; PULSE 64; TEMP 36.5; O2SAT 95
[2016-09-13] MEDS: CEFUROXIME IV 1,500 MG in DEXTROSE 5% 100ML 100 ML IV SCH ×2 (05:24→14:00)
--- NOTE | 2016-09-13 06:15 | Surgery Progress Note ---
Surgery Progress Note Date of Service Sep 13, 2016. Subjective + feeling well, + flatus voiding 400-500, str cath for 100-150 no feeling of urgency, feels flomax helped Objective Vital Signs: Date Time Temp Pulse Resp B/P Pulse Ox O2 Delivery O2 Flow Rate FiO2 09/13/16 05:38 Room Air 09/13/16 00:15 Room Air 09/12/16 22:47 36.5 64 18 127/84 95 Room Air 09/12/16 16:00 Room Air 09/12/16 15:03 36.6 67 18 133/76 96 Room Air 09/12/16 11:07 36.7 63 16 151/94 97 Room Air 09/12/16 07:45 36.4 52 16 144/91 98 Room Air 09/12/16 07:20 Room Air General Appearance: no apparent distress Respiratory/Chest: no respiratory distress Abdomen: normal bowel sounds, soft Incision(s): intact Laboratory Results: Results Past 24 Hours Test 09/12/16 08:19 09/12/16 11:59 09/12/16 17:08 09/12/16 20:36 Range/Units Bedside Glucose 195 182 150 173 70-99 mg/dl Assessment & Plan 09/13/16- Had some mild retention but scanner not accurate with him- only cathed for 100-150 cc and voiding 400-500. I think he can go home and we will check him next week. Flomax per medical team 09/12/16- s/p ezekiel narayan, had some ur retention- monitor progress- may need norman with leg bag for home. Possible d/c later today 09/12/16- s/p ezekiel narayan, had some ur retention- monitor progress- may need norman with leg bag for home. Possible d/c later today
[2016-09-13 07:06] VITALS: BP 138/85; PULSE 59; TEMP 36.3; O2SAT 95
[2016-09-13] MEDS: INSULIN ASPART 100 UNITS/ML 3 ML PEN SC SCH ×2 (08:00→12:00)
[2016-09-13] MEDS: DOCUSATE SODIUM/SENNA 50/8.6MG TAB PO SCH (09:02)
[2016-09-13] MEDS: MAGNESIUM HYDROXIDE SUSP 30 ML UDC PO SCH (09:02)
[2016-09-13] MEDS: METOPROLOL TARTRATE 25 MG TAB PO SCH (09:03)
[2016-09-13 09:05] VITALS: BP 124/80; PULSE 65
[2016-09-13] MEDS ORDERED: FLM4 PO (09:47)
--- NOTE | 2016-09-13 10:23 | Progress Note ---
Subjective Date of Service: Sep 13, 2016. Subjective Pt evaluation today including: conversation w/ patient, physical exam, lab review, review of inpatient medication list Patient complains of constipation, +flatus. Tolerating current diet. No chest pain. AMbulating halls well. No sob, no urinary symptoms. Some urinary retention improved. Problem List Medical Problems: (1) Bursitis of right hip Status: Acute (2) Herniated disc Status: Acute (3) Lumbar radiculopathy Status: Acute (4) Sialoadenitis of submandibular gland Status: Acute Review of Systems All Other Systems: Reviewed and Negative Medications Acetaminophen/ Hydrocodone Bitart ([place] 5/325 Tab) 1 tab Q4 PRN PO Last administered on 09/12/16 16:30; Admin Dose 1 TAB; Start 09/11/16 at 08:15; Stop 09/25/16 at 08:14 Acetaminophen/ Hydrocodone Bitart ([place] 5/325 Tab) 2 tab Q4 PRN PO; Start at 08:15; Stop 09/25/16 at 08:14 Cefuroxime Sodium/ Dextrose (Zinacef Iv/D5 100ml) 115 ml @ 200 mls/hr Q8 IV Last administered on 09/13/16 05:24; Admin Dose 200 MLS/HR; Start 09/11/16 at 14:00; Stop 09/21/16 at 13:59 Dextrose (Dextrose 50% 50ML Syringe) 25-50ML OF 50% DW IV FOR... UD PRN IV; Start 09/11/16 at 11:30; Stop 10/11/16 at 11:29 Glucagon (Glucagon Inj) 1 mg UD PRN SQ; Start 09/11/16 at 11:30; Stop 10/11/16 at 11:29 Glucose (Glucose 40% Gel) 15-30 GRAMS 15 GRAMS... UD PRN PO; Start 09/11/16 at 11:30; Stop 10/11/16 at 11:29 Glucose (Glucose Chew Tab) 4-8 Tablets 4 Tabl... UD PRN PO; Start 09/11/16 at 11:30; Stop 10/11/16 at 11:29 Insulin Aspart (novoLOG ASPART) SLIDING SCALE G... ACHS SC Last administered on 09/12/16 14:02; Admin Dose 1 UNITS; Start 09/11/16 at 12:00; Stop 10/11/16 at 11:59 Insulin Glargine (Lantus Per Unit) 10 units TODAY@2100 SQ Last administered on 21:47; Admin Dose 10 UNITS; Start 09/12/16 at 21:00; Stop 10/12/16 at 20:59 Magnesium Hydroxide (Milk Of Magnesia Susp) 30 ml BID PO Last administered on 09:02; Admin Dose 30 ML; Start 09/12/16 at 08:00; Stop 10/12/16 at 07:59 Metoprolol Tartrate (Lopressor Tab) 12.5 mg BID PO Last administered on 09:03; Admin Dose 12.5 MG; Start 09/12/16 at 21:00; Stop 10/12/16 at 20:59 Miscellaneous 1 ea 1 ea PRN PRN N/A; Start 09/11/16 at 09:15; Stop 09/11/17 at 09:14 Morphine Sulfate (MoRPHine SULFATE INJ) 2 mg Q4H PRN IV Last administered on 00:09; Admin Dose 2 MG; Start 09/11/16 at 08:15; Stop 09/25/16 at 08:14 Morphine Sulfate 4 mg 4 mg Q4H PRN IV; Start 09/11/16 at 08:15; Stop 09/25/16 at 08:14 Ondansetron HCl (Zofran Inj) 4 mg Q6H PRN IV; Start 09/11/16 at 08:15; Stop at 08:14 Promethazine HCl/ Sodium Chloride (Phenergan Inj/ Nss 50ml) 50.5 ml @ 204 mls/ hr Q6H PRN IV; Start 09/11/16 at 11:15; Stop 10/11/16 at 11:14 Promethazine HCl/ Sodium Chloride (Phenergan Inj/ Nss 50ml) 51 ml @ 204 mls/hr Q6H PRN IV; Start 09/11/16 at 08:15; Stop 10/11/16 at 08:14 Senna/Docusate Sodium (Senokot S Tab) 1 tab BID PO Last administered on 09:02; Admin Dose 1 TAB; Start 09/11/16 at 14:00; Stop 10/11/16 at 13:59 Tamsulosin HCl (Flomax Cap) 0.4 mg HS PO Last administered on 09/12/16t 21:49; Admin Dose 0.4 MG; Start 09/12/16 at 21:00; Stop 10/12/16 at 20:59 Objective Vital Signs Date Time Temp Pulse Resp B/P Pulse Ox O2 Delivery O2 Flow Rate FiO2 09/13/16 09:05 65 124/80 09/13/16 07:06 36.3 59 18 138/85 95 Room Air 09/13/16 05:38 Room Air 09/13/16 00:15 Room Air 09/12/16 22:47 36.5 64 18 127/84 95 Room Air 09/12/16 16:00 Room Air 09/12/16 15:03 36.6 67 18 133/76 96 Room Air 09/12/16 11:07 36.7 63 16 151/94 97 Room Air Physical Exam Comments: nad, aox3 anicteric s1 s2 rrr, no murmurs appreciated ctab no w/r/r abd distended, +right sided tenderness, +BS no LE edema Laboratory Results Last 24 Hours Test 09/12/16 11:59 09/12/16 17:08 09/12/16 20:36 09/13/16 08:12 Bedside Glucose 182 mg/dl 150 mg/dl 173 mg/dl 127 mg/dl Assessment and Plan 1. acute urinary retention - probably post-op/post-anesthesia - will need to comtinue flomax 0.4 mg at night - follow-up with his urologist 2. s/p lap sylvain - tolerating diet - pain regimen - bowel regimen per surgical team, received softeners and laxatives this morning - discharge per surgical team 3. HTN - will resume lopressor 12.5 mg BID - bp acceptable 4. T2DM - holding metformin - will give basal 10 unit and cont ISS - can resume home regimen for diabetes 5. dvt ppx per surgical team
[2016-09-13 12:44] VITALS: BP 124/80; PULSE 65; TEMP 36.3; O2SAT 95
--- NOTE | 2016-09-15 09:27 | DISCHARGE SUMMARY ---
PRIMARY DISCHARGE DIAGNOSES: 1. Cholelithiasis, chronic cholecystitis. 2. Benign prostatic hypertrophy. SECONDARY DISCHARGE DIAGNOSES: 1. Type 2 diabetes. 2. Hypertension. 3. Asthma. 4. Gastroesophageal reflux disease. CONSULTATIONS: [facility] Hospitalist to assist in medical management. PROCEDURE PERFORMED: Laparoscopic cholecystectomy with lysis of adhesions. HOSPITAL COURSE: The patient is a 70-year-old male brought in through same day and taken to the operating room for laparoscopic cholecystectomy. The procedure was well tolerated. He was transferred to the surgical floor for observation. The hospitalist service was consulted routinely. He did require straight cath the evening of surgery. He was also started on Flomax. On postoperative day 1, we considered placing a Marx catheter, but by day 2, he was able to void on his own, had not required recatheterization. His labs and vitals were stable. His abdomen was soft. Incisions were dry. He was stable for discharge on postoperative day 2. DISCHARGE INSTRUCTIONS: Discharge home. Follow up with Dr. Maloney in 2 weeks. Follow up with his urologist also within the next several weeks. DISCHARGE MEDICATIONS: Flomax 0.4 mg daily. Mcintosh 1-2 tablets every 4 hours as needed. Can resume all other home medications; metformin 500 mg b.i.d., Lopressor 12.5 mg b.i.d., Protonix 40 mg daily, Crestor 10 mg daily, trazodone 100 mg at bedtime, Advair Diskus 1 puff daily.
[2017-04-25] MEDS ORDERED: ALBU18002 INH (13:12)
== END 2016-09-13 14:26 | disposition home or self-care (01) ==
LOC: ENRESERVTM → ENRESERVDT → C.ACU 05:03 → C.MSN 08:11
PROVIDERS: ADMIT Surgery; ATTEND Surgery
DX: K81.1 Chronic cholecystitis (principal); I10 Essential (primary) hypertension; E11.9 Type 2 diabetes mellitus without complications; R33.9 Retention of urine, unspecified; G47.00 Insomnia, unspecified; K21.9 Gastro-esophageal reflux disease without esophagitis; N40.0 Benign prostatic hyperplasia without lower urinary tract symptoms; J45.909 Unspecified asthma, uncomplicated; E78.5 Hyperlipidemia, unspecified; Z87.891 Personal history of nicotine dependence; Z79.4 Long term (current) use of insulin

== ENCOUNTER → 2016-11-10 | Outpatient (CLI) | payer OTHER ==
[~2016-11-10] MED LIST changes: +ALBU18002 INH; +FLM4 PO; +HYDR-5688 PO
[2016-11-10 17:47] LABS: BASO % 0.8 %; BASO ABS # 0.08 K/uL (0-0.2); COMPLETE YES; EOS % 3.3 %; HEMATOCRIT 45.4 % (42-52); IG% 0.3 %; LYMPH % 40.2 %; LYMPH ABS # 3.81 K/uL (1.2-3.4); MEAN CELL VOLUME 96.8 fL (80-100); MEAN CORPUSCULAR HEMOGLOBIN 34.8 pg (25-34); MEAN CORPUSCULAR HGB CONC 35.9 g/dl (32-36); MEAN PLATELET VOLUME 10.7 fL (7.4-10.4); MONO % 7.8 %; NEUT % 47.6 %; PLATELET COUNT 153 K/uL (130-400); RED BLOOD COUNT 4.69 M/uL (4.7-6.1); WHITE BLOOD COUNT 9.48 K/uL (4.8-10.8)
[2016-11-10 18:08] LABS: ALB/GLOB RATIO 1.4 (0.9-2); ALKALINE PHOSPHATASE 98 U/L (45-117); ALT/SGPT 73 U/L (12-78); AST/SGOT 31 U/L (15-37); BLOOD UREA NITROGEN 13 mg/dl (7-18); BUN/CREATININE RATIO 12.2 (10-20); CALCIUM 9.4 mg/dl (8.5-10.1); CARBON DIOXIDE 29 mmol/L (21-32); CHLORIDE 104 mmol/L (98-107); CHOLESTEROL 129 mg/dl (0-200); CHOLESTEROL/HDL RATIO 4.2; GLUCOSE 130 mg/dl (70-99); HDL CHOLESTEROL 31 mg/dl; LDL CHOLESTEROL CALCULATED 42 mg/dl; POTASSIUM 4.2 mmol/L (3.5-5.1); SODIUM 141 mmol/L (136-145); TRIGLYCERIDES 282 mg/dl (0-150); VERY LOW DENSITY LIPOPROT CALC 56 mg/dl
[2016-11-10 18:27] LABS: RATIO 6.8 mcg/mg (0-30.0)
[2016-11-11 06:14] LABS: ESTIMATED AVERAGE GLUCOSE 143 mg/dl; HA1C FLAG Normal (Normal)
== END | disposition home or self-care (01) ==
LOC: C.LABMFLN 13:59
PROVIDERS: ATTEND Family Medicine
DX: E11.9 Type 2 diabetes mellitus without complications (principal); E78.5 Hyperlipidemia, unspecified

== ENCOUNTER → 2017-01-19 | Outpatient (CLI) | payer OTHER ==
[~2017-01-19] MED LIST changes: -ALBU18002 INH
--- NOTE | 2017-01-19 11:58 | DIAGNOSTIC IMAGING REPORT ---
RIGHT INJ MAJOR JNT SHLDR,HIP,KNEE CLINICAL HISTORY: 71 years-old Male presenting with DJD RT HIP Right. COMPARISON: CT from 08/15/2016. PROCEDURE: The risks, benefits, and alternatives to the procedure were discussed with the patient. Written informed consent was obtained. The patient was placed supine on the fluoroscopy table, and a right hip injection was performed under fluoroscopic guidance. The area was prepped and draped in the usual sterile fashion. The skin and soft tissues anesthetized with local 1% lidocaine. The right hip joint was accessed utilizing a 22-gauge needle, and approximately 5 cc of Optiray 300 was injected to confirm intra-articular location. Subsequently, a 7 cc mixture of 2 mL of betamethasone and 5 mL of 0.5% bupivacaine was administered. The procedure was well tolerated and without immediate complication. Fluoroscopy dosage (mGy): Not available. Fluoroscopy time: 1 minute 10 seconds. Number of fluoroscopic spot images: 0. IMPRESSION: Successful injection of the right hip under fluoroscopic guidance. Electronically signed by: Vincenzo Darling M.D. 01/19/2017 11:57 AM Dictated Date/Time: 01/19/2017 11:54 AM
== END | disposition home or self-care (01) ==
LOC: C.RADBC 10:41
PROVIDERS: ATTEND Orthopaedic Surgery
DX: M16.11 Unilateral primary osteoarthritis, right hip (principal)

== ENCOUNTER → 2017-02-14 | Outpatient (CLI) | payer OTHER ==
[2017-02-14 13:54] LABS: BLOOD UREA NITROGEN 10 mg/dl (7-18); BUN/CREATININE RATIO 8.7 (10-20); CALCIUM 9.3 mg/dl (8.5-10.1); CARBON DIOXIDE 31 mmol/L (21-32); CHLORIDE 104 mmol/L (98-107); GLUCOSE 122 mg/dl (70-99); PHOSPHORUS 2.8 mg/dl (2.5-4.9); POTASSIUM 4.3 mmol/L (3.5-5.1); SODIUM 140 mmol/L (136-145)
[2017-02-14 14:45] LABS: ESTIMATED AVERAGE GLUCOSE 146 mg/dl; HA1C FLAG Normal (Normal)
== END | disposition home or self-care (01) ==
LOC: C.LABMFLN 10:09
PROVIDERS: ATTEND Family Medicine
DX: E11.9 Type 2 diabetes mellitus without complications (principal)

== ENCOUNTER → 2017-03-19 | Outpatient (CLI) | payer OTHER ==
[~2017-03-19] MED LIST changes: -HYDR-5688 PO
== END | disposition home or self-care (01) ==
LOC: C.LABMFLN 13:58
PROVIDERS: ATTEND Family Medicine
DX: E11.9 Type 2 diabetes mellitus without complications (principal)

== ENCOUNTER 2017-05-25 08:42 | Inpatient (IN) | payer OTHER ==
[2017-04-25 13:12] VITALS: Ht 172.7 cm; Wt 88.8 kg
--- NOTE | 2017-04-25 13:48 | PAT Medication Instructions ---
Service Date Apr 25, 2017. Current Home Medication List Albuterol Sulfate (Proair Respiclick), 2 PUFF INH Q4 PRN for SOB/Wheezing Aspirin (Aspirin Ec), 81 MG PO HS Metformin HCl (Metformin HCl), 500 MG PO BID Metoprolol Tartrate (Lopressor) (Lopressor), 12.5 MG PO BID Pantoprazole (Protonix), 40 MG PO QAM Rosuvastatin Calcium (Rosuvastatin Calcium), 10 MG PO QAM Trazodone Hcl (Trazodone), 100 MG PO HS Medication Instructions For Your Scheduled Surgery - Hold the following medications 48 hours prior to surgery: Metformin HCl (Metformin HCl), 500 MG PO BID - Take the following medications the morning of surgery with a sip of water: Albuterol Sulfate (Proair Respiclick), 2 PUFF INH Q4 PRN for SOB/Wheezing ( bring with you to hospital day of surgery; use if needed) Metoprolol Tartrate (Lopressor) (Lopressor), 12.5 MG PO BID Pantoprazole (Protonix), 40 MG PO QAM Rosuvastatin Calcium (Rosuvastatin Calcium), 10 MG PO QAM - Take the following medications as scheduled the night before surgery: Trazodone Hcl (Trazodone), 100 MG PO HS Metoprolol Tartrate (Lopressor) (Lopressor), 12.5 MG PO BID Aspirin (Aspirin Ec), 81 MG PO HS Albuterol Sulfate (Proair Respiclick), 2 PUFF INH Q4 PRN for SOB/Wheezing (if needed) If you have any questions please call us at [phone] or [phone] or [phone]
--- NOTE | 2017-04-25 14:35 | DIAGNOSTIC IMAGING REPORT ---
CHEST 2 VIEWS ROUTINE CLINICAL HISTORY: PAT preoperative evaluation COMPARISON STUDY: 06/09/2015 FINDINGS: The bones soft tissues and hemidiaphragms are normal. The cardiomediastinal silhouette is normal. The lungs are clear. The pulmonary vasculature is normal. IMPRESSION: Negative chest. The above report was generated using voice recognition software. It may contain grammatical, syntax or spelling errors. Electronically signed by: Tacho Watt M.D. 04/25/2017 2:34 PM Dictated Date/Time: 04/25/2017 2:33 PM
[2017-04-25 14:54] LABS: BASO % 0.5 %; BASO ABS # 0.04 K/uL (0-0.2); EOS % 3.2 %; EOS ABS # 0.25 K/uL (0-0.5); HEMATOCRIT 42.3 % (42-52); HEMOGLOBIN 15.3 g/dL (14.0-18.0); IG# 0.04 K/uL (0.00-0.02); LYMPH % 36.9 %; LYMPH ABS # 2.91 K/uL (1.2-3.4); MEAN CELL VOLUME 97.5 fL (80-100); MEAN CORPUSCULAR HEMOGLOBIN 35.3 pg (25-34); MEAN CORPUSCULAR HGB CONC 36.2 g/dl (32-36); MEAN PLATELET VOLUME 10.5 fL (7.4-10.4); MONO % 6.7 %; MONO ABS # 0.53 K/uL (0.11-0.59); NEUT % 52.2 %; NEUT ABS # 4.11 K/uL (1.4-6.5); PLATELET COUNT 167 K/uL (130-400); RED CELL DISTRIBUTION WIDTH CV 12.5 % (11.5-14.5); RED CELL DISTRIBUTION WIDTH SD 44.4 fL (36.4-46.3); WHITE BLOOD COUNT 7.88 K/uL (4.8-10.8)
[2017-04-25 15:04] LABS: CALCIUM 9.1 mg/dl (8.5-10.1); CREATININE 0.97 mg/dl (0.60-1.40); POTASSIUM 4.2 mmol/L (3.5-5.1)
[2017-04-25 15:06] LABS: PTT PATIENT 25.2 SECONDS (21.0-31.0)
--- NOTE | 2017-05-24 17:11 | HISTORY & PHYSICAL EXAMINATION ---
DATE OF ADMISSION: 05/25/2017 PREOPERATIVE DIAGNOSIS: Primary osteoarthritis of the right hip. HISTORY OF PRESENT ILLNESS: Sergio is a pleasant 71-year-old gentleman who has been complaining of chronic bilateral hip pain with the right worse than left. He is going to the point where he is having trouble walking, getting into a car and putting on shoes. He has had multiple injections, which elevated his sugar levels, but have not helped with his hip pain. X-rays and clinical examination have been diagnostic for primary osteoarthritis of the hip. After failing conservative treatment, he has elected to proceed with a right total hip arthroplasty. PAST MEDICAL HISTORY: Significant for hypertension and hyperlipidemia. PAST SURGICAL HISTORY: Significant for bilateral knee arthroscopies, bilateral shoulder arthroscopies and colon resection and lumbar surgery. MEDICATIONS: Include trazodone 100 mg daily, metoprolol 25 mg daily, pantoprazole 40 mg daily, pravastatin 10 mg daily, and metformin 500 mg daily. ALLERGIES: ANTI-INFLAMMATORIES. FAMILY HISTORY: Denies. SOCIAL HISTORY: He is , never drinks. He was a former smoker. He does little activity and has 2 kids. REVIEW OF SYSTEMS: He complains of right hip pain. All other pertinent review of systems is negative. PHYSICAL EXAMINATION: GENERAL: He is awake, alert and oriented x3. He is in no apparent distress. He is very pleasant. HEENT: Pupils are equal, round and reactive to light. Extraocular motion intact. Oral mucosa is pink and moist. HEART: Regular rate per radial pulse. LUNGS: Mindy symmetrically bilaterally with no audible breath sounds. ABDOMEN: Soft, nontender, nondistended. MUSCULOSKELETAL: On physical examination of his right hip. He does walk with a slightly antalgic gait. He has trouble lying on the table with his hip out flat. He can flex to about 90 degrees, has about 20 degrees of external rotation, 5 degrees of internal rotation and has significant pain with end range of motion. IMAGING: X-rays of the hip and pelvis show advanced osteoarthritis of the right hip with osteophyte formation, joint space narrowing and subchondral sclerosis. IMPRESSION: Primary osteoarthritis of the right hip. PLAN: Will proceed with a Biomet Taperloc total hip arthroplasty. Postoperatively, we will discuss possibility of aspirin for DVT prophylaxis and he will be kept in the hospital for postoperative medical management. ANN MARIE
[~2017-05-25] VITALS: Ht 172.7 cm; Wt 88.8 kg
[2017-05-25] VITALS (8 sets, daily range): BP systolic 95–146; BP diastolic 66–90; PULSE 57–78; TEMP 35.7–36.9; O2SAT 95–100
[2017-05-25] MEDS: TRANEXAMIC ACID INJ 1,000 MG in SYRINGE 0 ML IV SCH ×2 (06:30→11:44)
[~2017-05-25 08:42] MED LIST changes: +ACETAMINOPHEN 500 MG TAB PO SCH; -ADVIN10/60 INH; +ALBU18002 INH; +BUPIVACAINE 0.5 % 5 MG/1 ML PF 10ML VIAL ONE; +CEFAZOLIN 2000MG IV PUSH 10 ML IV SCH; +FAMOTIDINE 20 MG TAB PO SCH; -FLM4 PO; +GABAPENTIN 300 MG CAP PO SCH; +LACTATED RINGER'S 1000ML 1,000 ML IV SCH; +LACTATED RINGER'S 1000ML 500 ML IV SCH; +LACTATED RINGER'S 1000ML IV SCH; +ROPIVACAINE 5MG/ML 30 ML 150 MG, BUPIVACAINE 0.5% MPF INJ 30 ML, EpINEphrine HCL INJ 0.... INFIL SCH
[2017-05-25] MEDS ORDERED: MIDAZOLAM HCL 1 MG/ML 2ML VIAL ONE (11:51)
[2017-05-25] MEDS ORDERED: FENTANYL CITRATE INJ 50 MCG/1 ML 2 ML VIAL ONE (11:51)
[2017-05-25] MEDS ORDERED: BACITRACIN 50000 UNIT VIAL ONE (12:07)
[2017-05-25] MEDS ORDERED: ORTHO JOINT ANESTHETIC ONE (12:07)
[2017-05-25] MEDS ORDERED: LIDOCAINE HCL 2% 2 ML VIAL (20MG/ML) ONE (13:13)
[2017-05-25] MEDS ORDERED: ONDANSETRON INJ 2 MG/ML 2 ML VIAL ONE (13:13)
[2017-05-25] MEDS ORDERED: PROPOFOL IV EMULSION 10 MG/ML 20 ML VIAL IV ONE ×2 (13:13→13:37)
--- NOTE | 2017-05-25 14:10 | [facility] Post Operative Brief Note ---
Immediate Operative Summary Operative Date May 25, 2017. Pre-Operative Diagnosis Primary osteoarthritis of right hip. Post-Operative Diagnosis Same as preoperative diagnosis. Procedure(s) Performed Right anterior total hip arthroplasty. Surgeon Dr. Prieto Records Management Associate Surgeon(s) Silvano Adhikari PA-C Estimated Blood Loss 250ml Findings as above Specimens A. Right femoral head Complication(s) None Disposition Recovery Room / PACU
[2017-05-25] MEDS ORDERED: MAGNESIUM HYDROXIDE SUSP 30 ML UDC PO PRN (14:15)
[2017-05-25] MEDS ORDERED: SOD PHOSPHATE/SOD BIPHOSPHATE ENEMA 132 ML BTL PR PRN (14:15)
[2017-05-25] MEDS ORDERED: ONDANSETRON INJ 2 MG/ML 2 ML VIAL IV PRN (14:15)
[2017-05-25] MEDS ORDERED: BISACODYL 10 MG SUPP PR PRN (14:15)
[2017-05-25] MEDS ORDERED: ATROPINE SULFATE 0.1 MG/ML 5ML SYR IV PRN (14:15)
[2017-05-25] MEDS ORDERED: MoRPHine SULFATE 2 MG/ML CARP IV PRN (14:15)
[2017-05-25] MEDS ORDERED: EpHEDrine SULFATE INJ 50 MG/ML AMP IV PRN (14:15)
[2017-05-25] MEDS ORDERED: METOCLOPRAMIDE HCL INJ 5 MG/ML 2 ML VIAL IV PRN (14:15)
[2017-05-25] MEDS ORDERED: GLUCOSE 40% GEL 15 GM TUBE PO PRN (14:30)
[2017-05-25] MEDS ORDERED: GLUCAGON FOR INJ 1 MG VIAL SQ PRN (14:30)
[2017-05-25] MEDS ORDERED: GLUCOSE 10 TABS/TUBE PO PRN (14:30)
[2017-05-25] MEDS ORDERED: DEXTROSE 50% 50 ML SYR IV PRN (14:30)
--- NOTE | 2017-05-25 14:38 | DIAGNOSTIC IMAGING REPORT ---
HIP UNILATERAL 1 VIEW CLINICAL HISTORY: 71 years-old Male presenting with RT TOTAL HIP. TECHNIQUE: 2 fluoroscopic spot image(s) obtained as part of an intraoperative procedure. COMPARISON: 01/16/2017. FINDINGS/IMPRESSION: Interval total right hip arthroplasty. No malalignment or gross complication. Please see surgical report for further details. Fluoroscopy dosage (mGy): 5.57. Fluoroscopy time: 42.9 seconds. Number of fluoroscopic spot images: 2. Electronically signed by: Vincenzo Darling M.D. 05/25/2017 2:37 PM Dictated Date/Time: 05/25/2017 2:36 PM
[2017-05-25] MEDS ORDERED: PHARMACY GLYCEMIC MGMT CONSULT SCH (14:48)
--- NOTE | 2017-05-25 14:48 | Anesthesiology Progress Note ---
Anesthesia Post Op Note Date & Time May 25, 2017 at 14:48 Vital Signs Pain Intensity: 0 Vital Signs Past 12 Hours Date Time Temp Pulse Resp B/P (MAP) Pulse Ox O2 Delivery O2 Flow Rate FiO2 05/25/17 14:42 64 21 05/25/17 14:42 62 21 100 05/25/17 14:41 102/86 05/25/17 14:37 70 23 100 05/25/17 14:37 70 23 05/25/17 14:36 111/79 05/25/17 14:32 71 22 05/25/17 14:32 72 22 100 05/25/17 14:31 109/82 05/25/17 14:27 23 05/25/17 14:27 36.2 77 20 100/64 100 Oxymask 10 05/25/17 14:27 73 23 100/64 05/25/17 09:34 36.4 63 18 146/90 98 Room Air Notes Mental Status: alert / awake / arousable, participated in evaluation Pt Amnestic to Procedure: Yes Nausea / Vomiting: adequately controlled Pain: adequately controlled Airway Patency, RR, SpO2: stable & adequate BP & HR: stable & adequate Hydration State: stable & adequate Neuraxial Anesthesia: was administered, sensory block is resolving Anesthetic Complications: no major complications apparent
--- NOTE | 2017-05-25 15:04 | DIAGNOSTIC IMAGING REPORT ---
R PELVIS/UNILATERAL HIP 1 VIEW CLINICAL HISTORY: 71 years-old Male presenting with IN PACU - A/P PELVIS and LATERAL HIP INCLUDING ALL OF IMPLANT. TECHNIQUE: Single frontal view of the pelvis and crosstable lateral views of the right hip were obtained. COMPARISON: Fluoroscopic images performed the same day. FINDINGS: Total right hip arthroplasty with postsurgical changes of soft tissue emphysema, surgical drain, and overlying skin kathy noted. No malalignment. No periprosthetic fracture. No gross hardware complication is evident. Visualized portion of the bony pelvis intact. Osteopenia may be present. IMPRESSION: Expected postsurgical appearance status post total right hip arthroplasty. Electronically signed by: Vincenzo Darling M.D. 05/25/2017 3:02 PM Dictated Date/Time: 05/25/2017 3:01 PM
--- NOTE | 2017-05-25 15:15 | Pharmacy Progress Note ---
Glycemic Control Intl Consult Date of Service May 25, 2017. Scope Glycemic Pharmacist consulted by Dr [] on [date] for glycemic control and to write orders per [facility] inpatient glycemic control protocol Objective Weight (Kilograms): 88.8 Accuchecks BSG (last 24hrs): Test 05/25/17 09:05 05/25/17 14:31 Bedside Glucose 178 mg/dl (70-99) 111 mg/dl (70-99) Recent Pertinent Medications Outpatient Anti-diabetic Regimen: * metformin 500 mg PO BID * A1c = 6.7 % 02/14/17 Risk Factors for Insulin Resistance: * Steroids: topical 4 mg of dexamethasone * Recent Surgery: POD 0 for hip surgery * Diet: not ordered currently Assessment & Plan ASSESSMENT: * Mr Pruitt is a 71 y/o M with a PMH of HTN and hyperlipidemia who presents for hip surgery. He received steroids in his topical orthopedic mixture. His fasting blood sugar was 178 mg/dL but later today it was 111 mg/dL. I believe it was elevated this morning secondary to holding metformin prior to surgery. * Will start weight-based stress of two parameters for Novolog. For Lantus, lower threshold for giving 0.2 units/kg tonight. Will not order overnight accuchecks as if patient does not need Lantus then do not want to overcorrect overnight. * Hold metformin on admission. Restart on POD 2 if patient has demonstrated adequate oral intake and kidney function. PLAN FOR INPATIENT GLYCEMIC CONTROL: * Holding outpatient oral diabetes medications * Basal insulin with LANTUS 15 units SQ if blood sugar 160 mg/dL or greater tonight * Correctional Insulin with NOVOLOG per scale ACHS or Q6hrs while NPO * Goal Range: Low 110 mg/dL - High 140 mg/dL * Correction Factor: 25 mg/dL/unit * Nutritional / Prandial insulin per carb ratio of 1 unit per 9 grams CHO consumed * Please note that the plan above was derived based on current level of insulin resistance and hospital stress. These recommendations are appropriate for inpatient admission only. Plan of care upon discharge will need to be reassessed to avoid potential outpatient hypo/hyperglycemia. Thank you.
[2017-05-25] MEDS: SODIUM CHLORIDE 0.9% 1000ML 1,000 ML IV SCH (15:45)
[2017-05-25] MEDS ORDERED: ALBUTEROL HFA 8 GM INHALER INH PRN (16:15)
--- NOTE | 2017-05-25 17:17 | Discharge Instructions ---
Discharge Instructions Date of Service May 25, 2017. Admission Reason for Admission: Degenerative Joint Disease Of Right Hip Discharge Discharge Diagnosis / Problem: Right Total Hip Discharge Goals Goal(s): Decrease discomfort, Improve function Activity Recommendations Activity Limitations: as noted below . Instructions / Follow-Up Instructions / Follow-Up Activity and Therapy Recommendations: * If you are using [facility] then Physical Therapy will be provided until they feel you are ready to start Outpatient Physical Therapy. If you are not using a Home Health agency then Outpatient Physical Therapy should start about 3-5 days from your day of surgery. Therapy will last about 3-6 weeks * You were shown a series of exercises in the hospital. Do these exercises three times each day including the exercises you were shown in physical therapy. * Get up and walk several times each day.~ For the first four weeks, try not to stand or walk for more than one hour at a time. If you do stand or walk for more than one hour, you will not hurt anything, but your leg will likely swell.~ ~ * As you feel comfortable, you may change from the walker or crutches to a cane and~then to independent walking. Medications: * Narcotic You will likely be sent home from the hospital with a prescription for the narcotic pain medication that worked best throughout your stay. * Aspirin Most patients will be required to take Aspirin 325mg twice a day for 6 weeks after surgery. This is obtained [id number] and a prescription is not necessary. * Other medications may be prescribed for specific circumstances. If you have any questions, please call the office at . * Resume previous home medications unless otherwise instructed TEDs/Elastic Stockings: The white elastic stockings help limit swelling and prevent blood clots from forming in your legs. The more you wear them, the more they work. Wear them for six weeks. Dressing Care: If the VAC dressing is still on at 10 days then remove it. If if comes off earlier don't be concerned. Then leave kathy open to air or cover so your pants do not rub on them Showering: You may shower with the VAC dressing. Do not let the spray directly hit the VAC dressing. After the VAC is removed you may shower normally and let the soapy water run over the kathy Things To Watch For: * Drainage from the incision site that occurs more than one week after your surgery. * Increased redness at the incision site. * Fever above 102 degrees Fahrenheit. * Unusual chest pain or shortness of breath. * Call [facility] at with any of the above problems Follow-Up Visit: Follow-up with Dr. Prieto 2 weeks after your day of surgery. An appointment was probably scheduled when you signed-up for surgery in the office. If you have any questions call Office Instructions: More detailed instructions as well as Frequently Asked Questions were provided in a folder by our office when you signed-up for surgery. Please review these instructions when you get home. If you have any further questions or concerns, please feel free to call the office at [phone] Current Hospital Diet Patient's current hospital diet: Diabetes Type 2 Diet Discharge Diet Recommended Diet: Diabetes Type 2 Diet Procedures Procedures Performed: Right anterior total hip arthroplasty. Pending Studies Studies pending at discharge: no Medical Emergencies . Who to Call and When: Medical Emergencies: If at any time you feel your situation is an emergency, please call 911 immediately. . Non-Emergent Contact Non-Emergency issues call your: Surgeon Call Non-Emergent contact if: wound has increased drainage, wound has increased redness . "Provider Documentation" section prepared by David Prieto. . VTE Core Measure Inpt VTE Proph given/why not?: Other Anticoagulation (Aspirin 325 twice a day for 6 weeks)
--- NOTE | 2017-05-25 17:41 | OPERATIVE REPORT ---
DATE OF OPERATION: 05/25/2017 PREOPERATIVE DIAGNOSIS: Primary osteoarthritis of the right hip. POSTOPERATIVE DIAGNOSIS: Same. PROCEDURE: Right total hip arthroplasty. SURGEON: Dr. David Prieto. METALLURGICAL TESTER: Eligio Adhikari PA-C, whose assistance was necessary for retraction and closure. ANESTHESIA: Spinal. COMPLICATIONS: None. CONDITION: Stable to PACU. IMPLANTS USED: I used a Biomet Taperloc total hip arthroplasty system with a size 13 standard offset Taperloc stem, a size 56 mm G7 cup with a single 20 mm screw, an E-poly neutral liner and a size 40 ceramic head with a +3 neck. INDICATIONS: Sergio is a pleasant 71-year-old male who presented to my office with complaints of chronic right hip and groin pain. X-rays and clinical examination were diagnostic for primary osteoarthritis of the right hip. After failing conservative treatment, he elected to undergo a right total hip arthroplasty. OPERATION AND FINDINGS: On 05/25/2017, he arrived at [facility] for the above procedure. He was seen in the preoperative holding area and the operative extremity was identified and signed. He was given a preoperative antibiotic and a spinal anesthetic. He was taken back to the operating room, laid on the table in supine position and given basic sedation. The right hip was then brought out to a purist leg positioner. The right hip was then prepped and draped in sterile fashion. Time-out was done and the patient and operative extremity was properly identified. An anterior approach was used. Dissection was taken down through the fascia and the tensor muscle belly was retracted laterally and the rectus was retracted medially. The circumflex vessels were ligated. The capsule was then incised and tagged for later repair. The femoral neck was then resected and the femoral head was removed. The acetabulum was exposed. Time was spent doing a complete circumferential labral release. Sequential reaming of the acetabulum up to a size 55 reamer was done, a size 56 mm G7 cup was then impacted into place. I was able to get an excellent press fit and a single 20 mm screw was placed. The head did break off of the 20 mm screw at the very end after it was placed. A 40 mm neutral E-poly liner was then snapped into place. The proximal femur was then exposed. Sequential broaching up to a size 13 broach was done. A standard offset neck was trialed and a size 40 ceramic head and a standard neck were trialed. The hip was then reduced. I was happy with the overall sizing and alignment of the complements. I thought his leg looked a little bit short. The hip was then dislocated, the final size 13 standard offset Taperloc stem was then impacted into place, a size 40 mm ceramic head with a +3 neck was then put in place. The hip was then reduced and I was happy with the overall size of the components and leg length. The wounds were then irrigated. The surrounding soft tissues were then injected with 100 mL was pediatric pain control cocktail. The joint was then irrigated with 3 liters of normal saline solution with bacitracin. The capsule was then closed with #1 Vicryl suture and a drain was placed. The fascia was closed with #1 PDS suture. Skin was closed with 2-0 Vicryl, 3-0 V-Loc suture and kathy. He was then placed in a Prevena VAC dressing. He was then taken to the postanesthesia care unit in stable condition. He tolerated the procedure well. I attest to the content of the Intraoperative Record and any orders documented therein. Any exception s are noted below.
[2017-05-25] MEDS: ACETAMINOPHEN IV 1,000 MG in EMPTY BAG 0 ML IV SCH (18:01)
[2017-05-25] MEDS: INSULIN ASPART 100 UNITS/ML 3 ML PEN SC SCH ×2 (18:04→21:10)
[2017-05-25] MEDS ORDERED: LANTUS PER UNIT CHARGE SQ PRN (21:00)
[2017-05-25] MEDS: METOPROLOL TARTRATE 25 MG TAB PO SCH (21:00)
[2017-05-25] MEDS: CEFAZOLIN IV 2,000 MG in SYRINGE 0 ML IV SCH (21:05)
[2017-05-25] MEDS: ASPIRIN 325 MG ECTAB PO SCH (21:13)
[2017-05-25] MEDS: SENNA 8.6 MG TAB PO SCH (21:13)
[2017-05-25] MEDS: DOCUSATE SODIUM 100 MG CAP PO SCH (21:14)
[2017-05-26] VITALS (7 sets, daily range): BP systolic 115–148; BP diastolic 77–98; PULSE 68–80; TEMP 36.5–36.9; O2SAT 97–99
[2017-05-26] MEDS: ACETAMINOPHEN IV 1,000 MG in EMPTY BAG 0 ML IV SCH ×2 (02:14→09:35)
[2017-05-26] MEDS: SODIUM CHLORIDE 0.9% 1000ML 1,000 ML IV SCH (02:14)
[2017-05-26] MEDS: CEFAZOLIN IV 2,000 MG in SYRINGE 0 ML IV SCH (03:09)
[2017-05-26 05:59] LABS: BASO % 0.1 %; BASO ABS # 0.02 K/uL (0-0.2); EOS % 0.1 %; EOS ABS # 0.01 K/uL (0-0.5); HEMATOCRIT 35.1 % (42-52); HEMOGLOBIN 12.8 g/dL (14.0-18.0); IG# 0.03 K/uL (0.00-0.02); LYMPH % 12.3 %; LYMPH ABS # 1.72 K/uL (1.2-3.4); MEAN CELL VOLUME 97.5 fL (80-100); MEAN CORPUSCULAR HEMOGLOBIN 35.6 pg (25-34); MEAN CORPUSCULAR HGB CONC 36.5 g/dl (32-36); MEAN PLATELET VOLUME 10.4 fL (7.4-10.4); MONO % 8.4 %; MONO ABS # 1.18 K/uL (0.11-0.59); NEUT % 78.9 %; NEUT ABS # 11.03 K/uL (1.4-6.5); PLATELET COUNT 123 K/uL (130-400); RED CELL DISTRIBUTION WIDTH CV 12.6 % (11.5-14.5); RED CELL DISTRIBUTION WIDTH SD 44.7 fL (36.4-46.3); WHITE BLOOD COUNT 13.99 K/uL (4.8-10.8)
[2017-05-26 06:29] LABS: CALCIUM 7.9 mg/dl (8.5-10.1); CREATININE 1.18 mg/dl (0.60-1.40)
[2017-05-26 07:09] LABS: HEMOGLOBIN A1C 6.4 % (4.5-5.6)
[2017-05-26] MEDS: PANTOprazole SOD 40 MG TAB PO SCH (08:38)
[2017-05-26] MEDS: MULTIVITAMIN TAB PO SCH (08:39)
[2017-05-26] MEDS: ROSUVASTATIN CALCIUM 10 MG TAB PO SCH (08:39)
[2017-05-26] MEDS: DOCUSATE SODIUM 100 MG CAP PO SCH ×2 (08:39→21:38)
[2017-05-26] MEDS: ASPIRIN 325 MG ECTAB PO SCH ×2 (08:39→21:38)
[2017-05-26] MEDS: METOPROLOL TARTRATE 25 MG TAB PO SCH ×2 (08:39→21:44)
[2017-05-26] MEDS: INSULIN ASPART 100 UNITS/ML 3 ML PEN SC SCH ×4 (08:45→21:45)
[2017-05-26] MEDS: OXYCODONE HCL IR 5 MG TAB (IMMEDIATE RELEASE) PO PRN ×4 (08:47→21:40)
--- NOTE | 2017-05-26 08:51 | PROGRESS NOTE ---
DATE: 05/26/2017 CHIEF COMPLAINT: Status post right total hip arthroplasty postop day #1. PROGRESS: Sergio was seen and examined at bedside today. Overall, he is doing fairly well. He has been up and ambulating to the bathroom. He is having some pain in his groin and around his hip. He has no other complaints. PHYSICAL EXAMINATION: On examination of his right HIP: The Hemovac is to suction and the Prevena VAC is to suction. He has active dorsiflexion and plantarflexion of his right ankle in full extension of his right knee. Sensation is intact throughout his leg lengths are equal. LABORATORIES: He has an H&H today of 12.8 and 35.1. His glucose is high at 201 with a hemoglobin A1c at 6.4. He is currently on insulin. His vital signs are all stable on room air. His Hemovac has put out about 250 mL so far. He has had a bowel movement and he is voiding on his own. X-rays postoperatively of the right hip showed the prosthesis to be in anatomic alignment without any evidence of fracture, dislocation or loosening. IMPRESSION: Status post right total hip arthroplasty postop day #1. PLAN: At this point, he is doing well and happy with his progress. We will continue oral pain medications for pain control. He is on aspirin for DVT prophylaxis. He will get work with physical therapy today. Tomorrow morning the nursing staff can pull the Hemovac drain and likely discharge him to home.
[2017-05-26] MEDS ORDERED: NURSING VERBAL MED ORDER ONE (10:15)
[2017-05-26] MEDS ORDERED: LANTUS PER UNIT CHARGE SQ SCH (13:00)
--- NOTE | 2017-05-26 13:36 | Pharmacy Progress Note ---
Glycemic Control Progress Note Date of Service May 26, 2017. Scope Glycemic Pharmacist consulted for glycemic control to write orders per [facility] inpatient glycemic control protocol. Objective Accuchecks BSG (last 24hrs): Test 05/25/17 14:31 05/25/17 16:56 05/25/17 20:33 05/26/17 05:06 Bedside Glucose 111 mg/dl (70-99) 131 mg/dl (70-99) 183 mg/dl (70-99) Random Glucose 215 mg/dl (70-99) Test 05/26/17 08:00 05/26/17 12:15 Bedside Glucose 201 mg/dl (70-99) 191 mg/dl (70-99) HbA1c: Test 05/26/17 05:06 Hemoglobin A1c 6.4 % (4.5-5.6) H Recent Pertinent Medications Outpatient Anti-diabetic Regimen: * metformin 500 mg PO BID * A1c = 6.7 % 02/14/17 Risk Factors for Insulin Resistance: * Steroids: topical 4 mg of dexamethasone * Recent Surgery: POD 0 for hip surgery * Diet: not ordered currently Outpatient Anti-Diabetic Meds see above Assessment & Plan ASSESSMENT: * Mr Pruitt is a 71 y/o M with a PMH of HTN and hyperlipidemia who presents for hip surgery. He received steroids in his topical orthopedic mixture. His blood sugar over the past 24 hours was 111-183 mg/dL. This morning's fasting blood sugar was 201 mg/dL. Lunch blood sugar was 191 mg/dL indicating the patient was not correcting himself. Lantus 15 units x 1 today with additional 10 units if blood sugar greater than 180 mg/dL. * Novolog weight-based stress of 2 did not appear effectively last night. Tighten to weight-based stress of 3 for today and plan to loosen tomorrow. * Hold metformin on admission. Restart on POD 2 if patient has demonstrated adequate oral intake and kidney function. PLAN FOR INPATIENT GLYCEMIC CONTROL: * Holding outpatient oral diabetes medications until POD 2 * Basal insulin with LANTUS 15 units SQ x 1 then 10 units tonight if blood sugar over 180 mg/dL. * Correctional Insulin with NOVOLOG per scale ACHS or Q6hrs while NPO * Goal Range: Low 110 mg/dL - High 140 mg/dL * Correction Factor: 20 mg/dL/unit * Nutritional / Prandial insulin per carb ratio of 1 unit per 6 grams CHO consumed DISCHARGE RECOMMENDATIONS * Patient's HbA1C well controlled - continue home dose. Thank you.
[2017-05-26] MEDS ORDERED: LANTUS PER UNIT CHARGE SQ PRN (21:00)
[2017-05-26] MEDS: SENNA 8.6 MG TAB PO SCH (21:38)
[2017-05-26] MEDS: ACETAMINOPHEN 500 MG TAB PO SCH (21:39)
[2017-05-27] MEDS: OXYCODONE HCL IR 5 MG TAB (IMMEDIATE RELEASE) PO PRN ×3 (02:15→12:57)
[2017-05-27] MEDS: ACETAMINOPHEN 500 MG TAB PO SCH ×3 (06:18→21:59)
[2017-05-27 07:17] VITALS: BP 114/74; PULSE 58; TEMP 36.6; O2SAT 98
[2017-05-27 08:00] VITALS: BP 132/89; PULSE 64
[2017-05-27] MEDS: MULTIVITAMIN TAB PO SCH (08:05)
[2017-05-27] MEDS: DOCUSATE SODIUM 100 MG CAP PO SCH ×2 (08:05→20:52)
[2017-05-27] MEDS: PANTOprazole SOD 40 MG TAB PO SCH (08:06)
[2017-05-27] MEDS: METFORMIN HCL 500 MG TAB PO SCH ×2 (08:06→18:07)
[2017-05-27] MEDS: METOPROLOL TARTRATE 25 MG TAB PO SCH ×2 (08:06→20:53)
[2017-05-27] MEDS: ROSUVASTATIN CALCIUM 10 MG TAB PO SCH (08:06)
[2017-05-27] MEDS: ASPIRIN 325 MG ECTAB PO SCH ×2 (08:07→20:53)
[2017-05-27] MEDS: INSULIN ASPART 100 UNITS/ML 3 ML PEN SC SCH ×4 (08:18→20:55)
[2017-05-27] MEDS ORDERED: ASPEC325 PO (09:40)
[2017-05-27] MEDS ORDERED: RXC5 PO (09:40)
--- NOTE | 2017-05-27 09:50 | PROGRESS NOTE ---
DATE: 05/27/2017 CHIEF COMPLAINT: Status post right total hip arthroplasty, postop day #2. PROGRESS: Sergio was seen and examined at bedside today. Unfortunately, he is still moving pretty slow. He was walking around the nurses' station when I saw him and his gait is very slow. He takes frequent breaks. He says he has a burning sensation on the anterior aspect of his thigh, but it is getting better. He is very concerned about going home today. He feels he will be better if he stays for 1 more day. The therapist does not feel he is ready to go home at this point. He has no other complaints. PHYSICAL EXAMINATION: RIGHT HIP: The Prevena VAC dressing is intact and the drain has been pulled. His leg lengths are equal. He is slowly getting around the hallway with a walker. His vital signs are all stable on room air. He is voiding on his own. He has already had a bowel movement. IMPRESSION: Status post right total hip arthroplasty, postop day #2. PLAN: Overall, he is doing well, but his hip is pretty sore and painful. His gait is very slow. I do not feel safe sending him home today. I am going to keep him throughout the day today for pain control, rest and a little bit of therapy. We will see how he is doing tomorrow. If he feels comfortable going home tomorrow, then he can go home, if not, then we will look at a rehab stay. He will continue aspirin for DVT prophylaxis.
[2017-05-27 11:41] VITALS: BP 113/76; PULSE 66; O2SAT 97
[2017-05-27 15:10] VITALS: BP 145/86; PULSE 69; TEMP 36.6; O2SAT 100
[2017-05-27 20:40] VITALS: BP 137/89; PULSE 75
[2017-05-27] MEDS: SENNA 8.6 MG TAB PO SCH (20:52)
[2017-05-27] MEDS ORDERED: LANTUS PER UNIT CHARGE SQ PRN (21:00)
[2017-05-27 23:25] VITALS: BP 144/84; PULSE 71; TEMP 36.6; O2SAT 100
[2017-05-28] MEDS: ACETAMINOPHEN 500 MG TAB PO SCH (05:29)
--- NOTE | 2017-05-28 07:36 | Anesthesiology Progress Note ---
Anesthesia Post Op Note Date & Time May 28, 2017 at 07:36 Vital Signs Vital Signs Past 12 Hours Date Time Temp Pulse Resp B/P (MAP) Pulse Ox O2 Delivery O2 Flow Rate FiO2 05/27/17 23:25 36.6 71 18 144/84 (104) 100 Room Air 05/27/17 23:15 Room Air 05/27/17 20:40 75 137/89 (105) Notes Mental Status: alert / awake / arousable, participated in evaluation Pt Amnestic to Procedure: Yes Nausea / Vomiting: adequately controlled Pain: adequately controlled Airway Patency, RR, SpO2: stable & adequate BP & HR: stable & adequate Hydration State: stable & adequate Neuraxial Anesthesia: sensory block resolved Anesthetic Complications: no major complications apparent
[2017-05-28 07:44] VITALS: BP 126/82; PULSE 80; TEMP 36.5; O2SAT 98
[2017-05-28 08:01] VITALS: O2SAT 98
[2017-05-28 08:02] VITALS: BP 126/82; PULSE 80; TEMP 36.5; O2SAT 98
[2017-05-28] MEDS: PANTOprazole SOD 40 MG TAB PO SCH (08:39)
[2017-05-28] MEDS: METOPROLOL TARTRATE 25 MG TAB PO SCH (08:39)
[2017-05-28] MEDS: ROSUVASTATIN CALCIUM 10 MG TAB PO SCH (08:39)
[2017-05-28] MEDS: MULTIVITAMIN TAB PO SCH (08:39)
[2017-05-28] MEDS: DOCUSATE SODIUM 100 MG CAP PO SCH (08:40)
[2017-05-28] MEDS: METFORMIN HCL 500 MG TAB PO SCH (08:40)
[2017-05-28] MEDS: ASPIRIN 325 MG ECTAB PO SCH (08:40)
[2017-05-28] MEDS: INSULIN ASPART 100 UNITS/ML 3 ML PEN SC SCH ×2 (08:45→12:39)
--- NOTE | 2017-05-28 08:47 | Pharmacy Progress Note ---
Pharmacy Glycemic Short Note 2 Date of Service May 28, 2017. OUTPATIENT ANTIDIABETIC REGIMEN: * Metformin 500 mg PO BID * A1c = 6.7 % 02/14/17 ASSESSMENT: * 71yo T2DM male with hyperglycemia post-op secondary to stress of surgery, holding oral antidiabetic agents, and topical steroids in ortho mixture * BSGs have improved over the past 24hrs with the initiation of outpatient regimen (re-started metformin) and SQ basal bolus insulin regimen * Pt with adequate degree of outpatient control per recent A1c * Will start to titrate SQ insulin regimen downwards since metformin resumed in prep for discharge PLAN FOR INPATIENT GLYCEMIC CONTROL: * Continue oral diabetes medications * Metformin 500mg PO BIDM * Basal insulin * N/A, none needed * Bolus insulin * NovoLog per scale ACHS or Q6hrs while NPO * Goal Range: Low 110 mg/dL - High 140 mg/dL * Correction Factor: 20 mg/dL/unit --> loosen to 25 * Nutritional / Prandial insulin per carb ratio of 1 unit per 6 grams CHO consumed --> loosen to 9 PLAN FOR DISCHARGE: * No changes needed to outpatient regimen.
[2017-05-28] MEDS: OXYCODONE HCL IR 5 MG TAB (IMMEDIATE RELEASE) PO PRN (08:49)
--- NOTE | 2017-05-28 13:20 | ORTHOPEDIC PROGRESS NOTE ---
DATE: 05/28/2017 CHIEF COMPLAINT: Status post right total hip arthroplasty postop day #3. HISTORY OF PRESENT ILLNESS: Mr. Pruitt was seen and examined at the bedside today. He has been up and ambulating with use of a walker. He has been ambulating using bathroom privileges. Pain is fairly well controlled. He continues to have a slight burning sensation in the anterior aspect of his right thigh, but is getting better. He feels as though he wants to go home, but he feels as though he wants that he should go to a formal rehabilitation facility. He has no other complaints. PHYSICAL MUSCULOSKELETAL: Right hip: The Prevena VAC dressing is intact and drain was pulled couple days ago. Leg lengths are equal. He is slow ambulating; however, gets around with the use of a walker. VITAL SIGNS: Stable. GENITOURINARY: He is voiding on his own. GASTROINTESTINAL: He has had multiple bowel movements at this point. IMPRESSION: Status post right total hip arthroplasty postop day #3. PLAN: Overall, he is doing pretty well. He feels as though he wants to go to a formal rehabilitation facility. We will discharge him and have him see if we ____ to go a rehab facility. Pain is well controlled. Scripts have been provided for him as far as pain management is concerned. We will expect to follow him in the office in 10-14 days postoperatively for wound inspection and suture removal. He can continue with aspirin for DVT prophylaxis.
--- NOTE | 2017-05-28 18:28 | DISCHARGE SUMMARY ---
DISCHARGE DIAGNOSIS: Primary osteoarthritis of the right hip. PROCEDURE: Right total hip arthroplasty on 05/25/[address] David Prieto. DISCHARGE INSTRUCTIONS: 1. Aspirin 325 mg twice a day for 6 weeks. 2. TONY hose stockings for 6 weeks. 3. Oxycodone 5-10 mg every 4 hours as needed for pain. 4. Albuterol 2 puffs as needed. 5. Metformin 500 mg twice a day. 6. Lopressor 12.5 mg twice a day. 7. Protonix 40 mg daily. 8. Calcium 10 mg daily. 9. Prevena VAC dressing for 10 days. 10. Follow up with Dr. Prieto in 2 weeks. 11. Call the office of Dr. Prieto with any questions or concerns. HOSPITAL COURSE: Sergio is a pleasant 71-year-old male who presented to my office with complaints of bilateral hip pain, right worse than left. X-rays and clinical examination were diagnostic for bilateral osteoarthritis of the hips. After failing conservative treatment, he elected to undergo a right total hip arthroplasty. On 05/25/2017 he arrived at [facility] and underwent a right hip replacement without complication. He had a spinal anesthetic. Postoperatively, he was started on aspirin for DVT prophylaxis and discharged to general orthopedic floor. His hospital course was relatively uneventful. On postop day #1, his H&H was stable at 12.8 and 35.1. His glucose was elevated and he was started on insulin. He ambulated around the nurses' station, but he was very slow and very unsteady on his feet. On postop day #2, the drain was pulled and his pain was relatively well controlled. He was still very slow with physical therapy. Complained mostly of a burning sensation on the anterior aspect of his thigh. He did not feel safe going home at this point. On postop day 3, he was doing a little bit better. He still did not quite feel safe going home. He just did not quite have the strength that he needed to get out of bed and to ambulate. He was subsequently discharged to [facility] with the above instructions.
== END 2017-05-28 13:55 | DRG 470 ==
LOC: C.ACU 08:42 → C.3E 12:00 → ENRESERV 15:25
PROVIDERS: ADMIT Orthopaedic Surgery; ATTEND Orthopaedic Surgery
PROC: 0SR904Z Replacement of Right Hip Joint with Ceramic on Polyethylene Synthetic Substitute, Open Approach (ICD-10-PCS; principal; 2017-05-25 11:30)
DX: M16.11 Unilateral primary osteoarthritis, right hip (principal); E11.9 Type 2 diabetes mellitus without complications; I10 Essential (primary) hypertension; E78.5 Hyperlipidemia, unspecified; F32.9 Major depressive disorder, single episode, unspecified; K21.9 Gastro-esophageal reflux disease without esophagitis; E66.9 Obesity, unspecified; Z68.30 Body mass index [BMI] 30.0-30.9, adult; Z79.82 Long term (current) use of aspirin; Z79.84 Long term (current) use of oral hypoglycemic drugs; Z79.899 Other long term (current) drug therapy; Z87.891 Personal history of nicotine dependence; Z90.49 Acquired absence of other specified parts of digestive tract

== ENCOUNTER 2017-06-15 01:20 | Inpatient (IN) | payer OTHER ==
[~2017-06-15] VITALS: Ht 170.2 cm; Wt 90.0 kg
[~2017-06-15 01:20] MED LIST changes: -ACETAMINOPHEN 500 MG TAB PO SCH; +ASPEC325 PO; -ASPI81TA28 PO; -BUPIVACAINE 0.5 % 5 MG/1 ML PF 10ML VIAL ONE; -CEFAZOLIN 2000MG IV PUSH 10 ML IV SCH; -FAMOTIDINE 20 MG TAB PO SCH; -GABAPENTIN 300 MG CAP PO SCH; -LACTATED RINGER'S 1000ML 1,000 ML IV SCH; -LACTATED RINGER'S 1000ML 500 ML IV SCH; -LACTATED RINGER'S 1000ML IV SCH; -ROPIVACAINE 5MG/ML 30 ML 150 MG, BUPIVACAINE 0.5% MPF INJ 30 ML, EpINEphrine HCL INJ 0.... INFIL SCH; -ROSU10TA24 PO; +ROSU10TA35 PO; +RXC5 PO; -TRAZ100T29 PO
[2017-06-15] MEDS ORDERED: ONDANSETRON INJ 2 MG/ML 2 ML VIAL IV STA (01:38)
[2017-06-15] MEDS ORDERED: HYDROmorphone INJ 1 MG/ML SYR IV STA ×2 (01:38→03:22)
--- NOTE | 2017-06-15 01:41 | EMERGENCY ROOM VISIT NOTE ---
History Report prepared by Eran: Frankie Tripp Under the Supervision of: Dr. Paddy Bonilla M.D. First contact with patient: 01:34 Chief Complaint: ABDOMINAL PAIN Stated Complaint: BELLY PAIN History of Present Illness The patient is a 71 year old male who presents to the Emergency Room with complaints of rapidly worsening abdominal pain beginning this evening. The patient states that he has a history of diverticulitis 3 years ago, for which he had part of his colon removed. He notes that he also had a right hip replacement a few weeks ago for which he is still taking pain medication. He reports that he has been having good bowel movements recently and that his abdominal pain radiates through to his back. He denies any diarrhea, urinary symptoms, SOB, CP, and recent trauma. He also denies taking any blood thinners. Source of History: patient Onset: this evening Position: abdomen Timing: worsening (rapidly) Associated Symptoms: + back pain, No chest pain, No SOB, No diarrhea, No urinary symptoms Note: He also denies any recent trauma. Review of Systems See HPI for pertinent positives & negatives. A total of 10 systems reviewed and were otherwise negative. Past Medical & Surgical Medical Problems: (1) Cholecystitis (2) Degenerative disc disease, lumbar (3) Diabetes (4) Diverticulitis (5) HLD (hyperlipidemia) (6) HTN (hypertension) (7) Osteoarthritis of right hip (8) Small bowel obstruction Surgical Problems: (1) History of partial colectomy (2) History of right hip replacement (3) S/P colon resection Family History Abdominal aortic aneurysm (AAA) Colon cancer Coronary artery disease Stroke Social History Smoking Status: Never Smoker Drug Use: none Marital Status: Housing Status: lives with family Occupation Status: retired Current/Historical Medications Scheduled Aspirin (Aspirin Ec), 325 MG PO BID Metformin HCl (Metformin HCl), 500 MG PO BID Metoprolol Tartrate (Lopressor) (Lopressor), 12.5 MG PO BID Oxycodone Hcl (Oxycodone Hcl), 5-10 MG PO Q4 Pantoprazole (Protonix), 40 MG PO Q2D Rosuvastatin Calcium (Rosuvastatin Calcium), 10 MG PO QAM Scheduled PRN Albuterol Sulfate (Proair Respiclick), 2 PUFF INH Q4 PRN for SOB/Wheezing Allergies Coded Allergies: NSAIDs (Verified Adverse Reaction, Mild, UPSET STOMACH/ABDOMINAL PAINS, ) Prednisone (Verified Adverse Reaction, Mild, GI UPSET, ABDOMINAL CRAMPING , 06/15/17) Physical Exam Vital Signs Date Time Temp Pulse Resp B/P (MAP) Pulse Ox O2 Delivery O2 Flow Rate FiO2 06/15/17 04:00 62 18 159/94 98 Room Air 06/15/17 03:00 91 18 161/83 98 Room Air 06/15/17 02:34 70 20 145/89 98 Room Air 06/15/17 01:28 36.9 70 18 154/103 99 Room Air Physical Exam GENERAL: Patient is very uncomfortable appearing and in moderate distress. Diaphoretic. HEENT: No acute trauma, normocephalic atraumatic, mucous membranes moist, no nasal congestion, no scleral icterus. NECK: No stridor, no adenopathy, no meningismus, trachea is midline. LUNGS: No dyspnea. Clear to auscultation and equal bilaterally. No wheeze, no rhonchi. HEART: Regular rate and rhythm. No murmurs, rubs, gallops appreciated. ABDOMEN: Soft, bowel sounds positive, no masses appreciated, no peritonitis. Moderate tenderness to palpation over LLQ. BACK: No midline tenderness, mild left CVA tenderness to palpation. EXTREMITIES: Normal motion all extremities, no cyanosis, no edema. NEUROLOGIC: Alert and oriented, no acute motor or sensory deficits, no focal weakness, cranial nerves grossly intact. SKIN: No rash, no jaundice, no diaphoresis. Medical Decision & Procedures ER Provider Diagnostic Interpretation: Per [facility]: CT ABDOMEN & PELVIS With Contrast: Impression: Small bowel obstruction with a transition point in the left hemipelvis (2-47). No pneumatosis or free air. Additional findings: Subcentimeter low-density lesion within the right hepatic lobe, which is too small to characterize. Mild intra-and extra hepatic bile duct dilatation likely site of prior cholecystectomy. Spleen, pancreas and adrenal glands are unremarkable. Kidneys, ureters and urinary bladder are unremarkable. Appendix is not visualized and may be surgically absent or diminutive. Total right hip arthroplasty. No acute osseous abnormality. Radiologist: Arthur Schwarz MD Laboratory Results 06/15/17 01:43 Red Blood Count 4.06, Mean Corpuscular Volume 98.3, Mean Corpuscular Hemoglobin 34.7, Mean Corpuscular Hemoglobin Concent 35.3, Mean Platelet Volume 9.3, Neutrophils (%) (Auto) 62.7, Lymphocytes (%) (Auto) 23.0, Monocytes (%) (Auto) 7.5, Eosinophils (%) (Auto) 5.7, Basophils (%) (Auto) 0.6, Neutrophils # (Auto) 7.68, Lymphocytes # (Auto) 2.82, Monocytes # (Auto) 0.92, Eosinophils # (Auto) 0.70, Basophils # (Auto) 0.07 06/15/17 01:43 Test 06/15/17 00:00 06/15/17 01:43 06/15/17 01:49 Urine Color YELLOW Urine Appearance CLEAR (CLEAR) Urine pH 5.5 (4.5-7.5) Urine Specific [place] 1.012 (1.000-1.030) Urine Protein NEG (NEG) Urine Glucose (UA) NEG (NEG) Urine Ketones NEG (NEG) Urine Occult Blood NEG (NEG) Urine Nitrite NEG (NEG) Urine Bilirubin NEG (NEG) Urine Urobilinogen NEG (NEG) Urine Leukocyte Esterase NEG (NEG) Urine WBC (Auto) 0 /hpf (0-5) Urine RBC (Auto) 0-4 /hpf (0-4) Urine Hyaline Casts (Auto) 0 /lpf (0-5) Urine Epithelial Cells (Auto) 0-5 /lpf (0-5) Urine Bacteria (Auto) NEG (NEG) White Blood Count 12.25 K/uL (4.8-10.8) Red Blood Count 4.06 M/uL (4.7-6.1) Hemoglobin 14.1 g/dL (14.0-18.0) Hematocrit 39.9 % (42-52) Mean Corpuscular Volume 98.3 fL (80-100) Mean Corpuscular Hemoglobin 34.7 pg (25-34) Mean Corpuscular Hemoglobin Concent 35.3 g/dl (32-36) Platelet Count 323 K/uL (130-400) Mean Platelet Volume 9.3 fL (7.4-10.4) Neutrophils (%) (Auto) 62.7 % Lymphocytes (%) (Auto) 23.0 % Monocytes (%) (Auto) 7.5 % Eosinophils (%) (Auto) 5.7 % Basophils (%) (Auto) 0.6 % Neutrophils # (Auto) 7.68 K/uL (1.4-6.5) Lymphocytes # (Auto) 2.82 K/uL (1.2-3.4) Monocytes # (Auto) 0.92 K/uL (0.11-0.59) Eosinophils # (Auto) 0.70 K/uL (0-0.5) Basophils # (Auto) 0.07 K/uL (0-0.2) RDW Standard Deviation 47.4 fL (36.4-46.3) RDW Coefficient of Variation 13.4 % (11.5-14.5) Immature Granulocyte % (Auto) 0.5 % Immature Granulocyte # (Auto) 0.06 K/uL (0.00-0.02) Est Creatinine Clear Calc Drug Dose 69.0 ml/min Estimated GFR () 84.1 Estimated GFR (Non- 72.6 BUN/Creatinine Ratio 15.5 (10-20) Calcium Level 9.4 mg/dl (8.5-10.1) Total Bilirubin 0.6 mg/dl (0.2-1) Direct Bilirubin < 0.1 mg/dl (0-0.2) Aspartate Amino Transf (AST/SGOT) 23 U/L (15-37) Alanine Aminotransferase (ALT/SGPT) 48 U/L (12-78) Alkaline Phosphatase 188 U/L (45-117) Total Protein 7.7 gm/dl (6.4-8.2) Albumin 3.9 gm/dl (3.4-5.0) Lipase 194 U/L (73-393) Bedside Hemoglobin 13.6 g/dl (14.0-18.0) Bedside Hematocrit 40 % (42-52) Bedside Sodium 140 mEq/L (135-144) Bedside Potassium 4.0 mEq/L (3.3-5.0) Bedside Chloride 97 mEq/L (101-112) Bedside Total CO2 31 mEq/l (24-31) Anion Gap 17.0 mmol/L (16-25) Bedside Blood Urea Nitrogen 16 mg/dl (7-18) Bedside Creatinine 1.1 mg/dl (0.6-1.3) Bedside Glucose (other) 149 mg/dl (70-99) Bedside Ionized Calcium (Pinky) 1.17 mmol/l (1.12-1.32) Laboratory results as reviewed by me. Medications Administered Medications (Trade) Dose Ordered Sig/Yee Route Start Time Stop Time Status Last Admin Dose Admin Hydromorphone HCl (Dilaudid Inj) 1 mg NOW STAT IV 06/15/17 01:38 06/15/17 01:40 DC 06/15/17 01:54 1 MG Ondansetron HCl (Zofran Inj) 4 mg NOW STAT IV 06/15/17 01:38 06/15/17 01:40 DC 06/15/17 01:54 4 MG Hydromorphone HCl (Dilaudid Inj) 1 mg NOW STAT IV 06/15/17 03:22 06/15/17 03:24 DC 06/15/17 03:33 1 MG Sodium Chloride 1,000 ml @ 100 mls/hr Q10H STAT IV 06/15/17 03:24 06/15/17 05:07 DC 06/15/17 03:33 100 MLS/HR ED Course 0133: The patient was evaluated in room C1. A complete history and physical exam was performed. 0230: I reevaluated and updated the patient. He notes that his abdominal pain is improved. He currently has no complains and denies any current nausea. 0307: I rechecked the patient. He is feeling alright and still not experiencing any nausea. 0311: Upon reevaluation, the patient is stable. Discussed results and treatment plan with the patient. He verbalized understanding and agreement with the treatment plan. Discussed the patient's case with Dr. Quintanilla - Resident design/animation instructor for Dr. Carroll - Hospitalist, [facility] [place]. The patient will be evaluated for further treatment and disposition. 0416: I reevaluated and updated the patient. He is feeling better with the NG tube in place. Medical Decision Differential: Diverticulitis, MSK, , UTI, Renal Colic, Bowel Obstruction, Aortic Pathology, amongst other pathologies entertained. Very pleasant male arrives in quite a lot of pain in LLQ though without surgical abdominal exam. History of colon resection several years ago for diverticulitis. Given IV dilaudid with vast improvement in pain. CT emergently done given amount of pain which revealed SBO. With return of pain/ symptoms felt that he would benefit from NGT along with further IV pain medications. Attempted contact with gen surg and will place consult. Discussed with hospitalists given patient multiple medical comorbidities and they will bring patient in for further management. Patient stable and feeling quite well at time of admission without significant TTP over abdomen. Of note patient with recent right hip replacement and incision looks good. Medication Reconcilliation Current Medication List: was personally reviewed by me Blood Pressure Screening Patient's blood pressure: Elevated blood pressure Elevated blood pressure monitored by hospitalist. Consults Time Called: [phone] Consulting Physician: Dr. Quintanilla - Resident design/animation instructor for Dr. Carroll - Hospitalist, [facility] [place] Returned Call: [phone] Discussed the patient's case. The patient will be evaluated for further treatment and disposition. Impression Primary Impression: Small bowel obstruction Scribe Attestation The scribe's documentation has been prepared under my direction and personally reviewed by me in its entirety. I confirm that the note above accurately reflects all work, treatment, procedures, and medical decision making performed by me. Departure Information Dispostion Being Evaluated By Hospitalist Referrals Nakia Louise M.D. (PCP) Patient Instructions My [facility]
[2017-06-15] MEDS ORDERED: OPTIRAY 320 IV PRN (01:45)
[2017-06-15 02:01] LABS: ISTAT CREATININE 1.1 mg/dl (0.6-1.3); ISTAT IONIZED CALCIUM 1.17 mmol/l (1.12-1.32)
[2017-06-15 02:02] LABS: BASO % 0.6 %; BASO ABS # 0.07 K/uL (0-0.2); EOS % 5.7 %; HEMATOCRIT 39.9 % (42-52); HEMOGLOBIN 14.1 g/dL (14.0-18.0); IG# 0.06 K/uL (0.00-0.02); LYMPH ABS # 2.82 K/uL (1.2-3.4); MEAN CELL VOLUME 98.3 fL (80-100); MEAN CORPUSCULAR HEMOGLOBIN 34.7 pg (25-34); MEAN CORPUSCULAR HGB CONC 35.3 g/dl (32-36); MEAN PLATELET VOLUME 9.3 fL (7.4-10.4); MONO % 7.5 %; MONO ABS # 0.92 K/uL (0.11-0.59); NEUT % 62.7 %; NEUT ABS # 7.68 K/uL (1.4-6.5); PLATELET COUNT 323 K/uL (130-400); RED CELL DISTRIBUTION WIDTH CV 13.4 % (11.5-14.5); RED CELL DISTRIBUTION WIDTH SD 47.4 fL (36.4-46.3); WHITE BLOOD COUNT 12.25 K/uL (4.8-10.8)
[2017-06-15 02:17] LABS: ALBUMIN 3.9 gm/dl (3.4-5.0); ALT/SGPT 48 U/L (12-78); AST/SGOT 23 U/L (15-37); BLOOD UREA NITROGEN 16 mg/dl (7-18); CALCIUM 9.4 mg/dl (8.5-10.1); CARBON DIOXIDE 32 mmol/L (21-32); CREATININE 1.02 mg/dl (0.60-1.40); GLUCOSE 143 mg/dl (70-99); LIPASE 194 U/L (73-393); POTASSIUM 3.9 mmol/L (3.5-5.1); SODIUM 135 mmol/L (136-145)
[2017-06-15 02:20] LABS: ALKALINE PHOSPHATASE 188 U/L (45-117); TOTAL PROTEIN 7.7 gm/dl (6.4-8.2)
[2017-06-15] MEDS ORDERED: ASPI325T39 PO (02:31)
[2017-06-15] MEDS ORDERED: OXYC1CAP5 PO (02:34)
[2017-06-15] MEDS ORDERED: SODIUM CHLORIDE 0.9% 1000ML 1,000 ML IV STA (03:24)
[2017-06-15] MEDS ORDERED: LORAZEPAM 2 MG/ML 1 ML VIAL IV PRN (03:30)
[2017-06-15] MEDS ORDERED: MoRPHine SULFATE 4 MG/ML 1 ML CARP\\VIAL IV PRN (04:15)
[2017-06-15] MEDS ORDERED: VANCOMYCIN CONSULT ACTIVE PRN (04:15)
[2017-06-15] MEDS ORDERED: ONDANSETRON INJ 2 MG/ML 2 ML VIAL IV PRN (04:15)
[2017-06-15] MEDS ORDERED: PIPERACILL/TAZOBAC CONSULT ACTIVE PRN (04:15)
[2017-06-15] MEDS ORDERED: D5W AND 1/2NSS 1,000 ML IV SCH (04:15)
--- NOTE | 2017-06-15 04:28 | History and Physical ---
History & Physical Date & Time of Service: Jun 15, 2017 at 04:11 Chief Complaint: Belly Pain Primary Care Physician: Nakia Louise M.D. History of Present Illness Source: patient, hospital records This is a 71 yo m with a h/o htn/hld/ DMII that is presenting to us with acute abd pain which started at approx 2300. The patient states that he had progressive worsening of abdominal pain that is diffuse in nature and when arriving to the ED was 10/10. He has not had any N&V and no change in BM recently. CT abd revealed an SBO without obstruction. The patient recently had undergone a right hip arthroplasty on May 24 and was d/c to rehab. He notes that during his stay he developed a blister which has now developed into an ulceration with erythema. The patient has had a history of abdominal surgeries which also includes a colonic resection for diverticulitis three years prior and recent back surgery and cholecystectomy. Past Medical/Surgical History HTN HLD DMII Disectomy Right hip arthroplasty Large bowel resection Cholecystectomy Family History Abdominal aortic aneurysm (AAA) Colon cancer Coronary artery disease Stroke Social History Smoking Status: Never Smoker Smokeless Tobacco Use: No Alcohol Use: none Drug Use: none Marital Status: Housing status: lives with family Immunizations History of Influenza Vaccine: No History of Tetanus Vaccine?: Yes History of Pneumococcal: Yes History of Hepatitis B Vaccine: No Multi-Drug Resistant Organisms History of MDRO: No Allergies Coded Allergies: NSAIDs (Verified Adverse Reaction, Mild, UPSET STOMACH/ABDOMINAL PAINS, ) Prednisone (Verified Adverse Reaction, Mild, GI UPSET, ABDOMINAL CRAMPING , 06/15/17) Home Medications Scheduled Aspirin (Aspirin Ec), 325 MG PO BID Metformin HCl (Metformin HCl), 500 MG PO BID Metoprolol Tartrate (Lopressor) (Lopressor), 12.5 MG PO BID Oxycodone Hcl (Oxycodone Hcl), 5-10 MG PO Q4 Pantoprazole (Protonix), 40 MG PO Q2D Rosuvastatin Calcium (Rosuvastatin Calcium), 10 MG PO QAM Scheduled PRN Albuterol Sulfate (Proair Respiclick), 2 PUFF INH Q4 PRN for SOB/Wheezing Review of Systems Constitutional: No fever, No chills, No sweats Eyes: No worsening of vision ENT: No hearing loss Respiratory: No cough, No sputum, No wheezing, No shortness of breath, No dyspnea on exertion, No dyspnea at rest Cardiovascular: No chest pain Abdomen: + pain, No nausea, No vomiting, No diarrhea, No constipation, No GI bleeding Musculoskeletal: No joint pain, No muscle pain Neurologic: No weakness, No numbness/tingling, No balance problems Psychiatric: No depression symptoms Endocrine: No fatigue Hematologic / Lymphatic: No abnormal bleeding/bruising Integumentary: No rash Physical Exam Vital Signs Date Time Temp Pulse Resp B/P (MAP) Pulse Ox O2 Delivery O2 Flow Rate FiO2 06/15/17 03:00 91 18 161/83 98 Room Air 06/15/17 02:34 70 20 145/89 98 Room Air 06/15/17 01:28 36.9 70 18 154/103 99 Room Air General Appearance: no apparent distress Head: normocephalic, atraumatic Eyes: normal inspection ENT: normal ENT inspection Neck: supple Respiratory/Chest: normal breath sounds, no respiratory distress, no accessory muscle use, + decreased breath sounds (bilat bases) Cardiovascular: regular rate, rhythm, no murmur, normal peripheral pulses Abdomen/GI: non tender, + abnormal bowel sounds (slightly increased in RUQ), + distended Back: normal inspection, normal range of motion Extremities/Musculoskelatal: no calf tenderness, + pedal edema (right pedal edema +2), + pertinent finding (2x2 cm ulceration on dorsum of right foot with surrounding erythema to mid ankle) Neurologic/Psych: alert, normal mood/affect, oriented x 3 Skin: normal color, warm/dry, no rash Lymphatic: no adenopathy Diagnostics Laboratory Results Results Past 24 Hours Test 06/15/17 00:00 06/15/17 01:43 06/15/17 01:49 Range/Units Urine Color YELLOW Urine Appearance CLEAR CLEAR Urine pH 5.5 4.5-7.5 Urine Specific [place] 1.012 1.000-1.030 Urine Protein NEG NEG Urine Glucose (UA) NEG NEG Urine Ketones NEG NEG Urine Occult Blood NEG NEG Urine Nitrite NEG NEG Urine Bilirubin NEG NEG Urine Urobilinogen NEG NEG Urine Leukocyte Esterase NEG NEG Urine WBC (Auto) 0 0-5 /hpf Urine RBC (Auto) 0-4 0-4 /hpf Urine Hyaline Casts (Auto) 0 0-5 /lpf Urine Epithelial Cells (Auto) 0-5 0-5 /lpf Urine Bacteria (Auto) NEG NEG White Blood Count 12.25 4.8-10.8 K/uL Red Blood Count 4.06 4.7-6.1 M/uL Hemoglobin 14.1 14.0-18.0 g/dL Hematocrit 39.9 42-52 % Mean Corpuscular Volume 98.3 80-100 fL Mean Corpuscular Hemoglobin 34.7 25-34 pg Mean Corpuscular Hemoglobin Concent 35.3 32-36 g/dl Platelet Count 323 130-400 K/uL Mean Platelet Volume 9.3 7.4-10.4 fL Neutrophils (%) (Auto) 62.7 % Lymphocytes (%) (Auto) 23.0 % Monocytes (%) (Auto) 7.5 % Eosinophils (%) (Auto) 5.7 % Basophils (%) (Auto) 0.6 % Neutrophils # (Auto) 7.68 1.4-6.5 K/uL Lymphocytes # (Auto) 2.82 1.2-3.4 K/uL Monocytes # (Auto) 0.92 0.11-0.59 K/uL Eosinophils # (Auto) 0.70 0-0.5 K/uL Basophils # (Auto) 0.07 0-0.2 K/uL RDW Standard Deviation 47.4 36.4-46.3 fL RDW Coefficient of Variation 13.4 11.5-14.5 % Immature Granulocyte % (Auto) 0.5 % Immature Granulocyte # (Auto) 0.06 0.00-0.02 K/uL Sodium Level 135 136-145 mmol/L Potassium Level 3.9 3.5-5.1 mmol/L Chloride Level 99 98-107 mmol/L Carbon Dioxide Level 32 21-32 mmol/L Anion Gap 4.0 17.0 16-25 mmol/L Blood Urea Nitrogen 16 7-18 mg/dl Creatinine 1.02 0.60-1.40 mg/dl Est Creatinine Clear Calc Drug Dose 69.0 ml/min Estimated GFR () 84.1 Estimated GFR (Non- 72.6 BUN/Creatinine Ratio 15.5 10-20 Random Glucose 143 70-99 mg/dl Calcium Level 9.4 8.5-10.1 mg/dl Total Bilirubin 0.6 0.2-1 mg/dl Direct Bilirubin < 0.1 0-0.2 mg/dl Aspartate Amino Transf (AST/SGOT) 23 15-37 U/L Alanine Aminotransferase (ALT/SGPT) 48 12-78 U/L Alkaline Phosphatase 188 45-117 U/L Total Protein 7.7 6.4-8.2 gm/dl Albumin 3.9 3.4-5.0 gm/dl Lipase 194 73-393 U/L Bedside Hemoglobin 13.6 14.0-18.0 g/dl Bedside Hematocrit 40 42-52 % Bedside Sodium 140 135-144 mEq/L Bedside Potassium 4.0 3.3-5.0 mEq/L Bedside Chloride 97 101-112 mEq/L Bedside Total CO2 31 24-31 mEq/l Bedside Blood Urea Nitrogen 16 7-18 mg/dl Bedside Creatinine 1.1 0.6-1.3 mg/dl Bedside Glucose (other) 149 70-99 mg/dl Bedside Ionized Calcium (Pinky) 1.17 1.12-1.32 mmol/l Diagnostic Radiology CT abd - stat read reading SBO Impression Assessment and Plan THis is a 71 yo m with a h/o DMII and HTN s/p right hip arthroplasty presenting with SBO and right lower extremity cellulitis SBO - med surg - NG in place, NPO - gen surgery consulted - pain mx with morphine/ dilaudid 1/2 NSS @ 100cc/h Right lower extremity cellulitis secondary to ulceration - doppler rt LE - wound care consult - Zosyn/ vanc - xray to assess for osteo DMII - insulin ISS and BSG q6h HTN/ HLD ASA held Metoprolol 12.5 mg bid and Rosuvastatin 10 mg held hydralazine 5 mg q6h for sys > 180 DVT prophy SCD Full Code Attending addendum: I have physically seen this patient, have supervised the medical residents activities, and agree with the H&P unless as otherwise noted. Assessment and Plan: Small bowel obstruction with transition point in left hemipelvis-- Admit to medical surgical floor NG tube to low intermittent suction Nothing by mouth Pain management with IV morphine when necessary 1/2 NSS at 100 ML's per hour Consult general surgery Right lower extremity cellulitis with right dorsal foot ulceration-- Venous Doppler right lower extremity to assess for DVT Vancomycin IV and Zosyn IV to cover SBO and cellulitis Wound care consult Bennie ballard Diabetes mellitus-- Place on Accu-Cheks before meals and at bedtime with NovoLog coverage per scale Hypertension-- Hold aspirin Hold metoprolol tartrate 12.5 mg by mouth twice a day Hydralazine when necessary Level of Care Med/Surg Advanced Directives Existing Advance Directive: No Existing Living Will: No Existing Power of Pollution Control Chemist: No Resuscitation Status FULL RESUSCITATION VTE Prophylaxis VTE Risk Assessment Done? Y/N: Yes Risk Level: Moderate Given or contraindicated: SCD's Social Service Consult None Apply Additional Copies To Nakia Louise M.D.
[2017-06-15] MEDS ORDERED: HydrALAZINE HCL 20 MG/ML VIAL IV. PRN (04:30)
[2017-06-15] MEDS ORDERED: DEXTROSE 50% 50 ML SYR IV PRN (04:45)
[2017-06-15] MEDS ORDERED: GLUCAGON FOR INJ 1 MG VIAL SQ PRN (04:45)
[2017-06-15] MEDS ORDERED: GLUCOSE 10 TABS/TUBE PO PRN (04:45)
[2017-06-15] MEDS ORDERED: GLUCOSE 40% GEL 15 GM TUBE PO PRN (04:45)
[2017-06-15] MEDS ORDERED: VANCOMYCIN INJ 2,250 MG in SODIUM CHLORIDE 0.9% 500ML 500 ML IV SCH (05:00)
[2017-06-15 05:15] VITALS: BP 133/90; PULSE 62; TEMP 36.4; O2SAT 96; BMI 31.1
[2017-06-15] MEDS ORDERED: PIPERACILL/TAZOBAC IV 3.375 GM in DEXTROSE 5% 100ML IV ONE (05:15)
[2017-06-15 05:29] VITALS: BP 133/90; PULSE 62; TEMP 36.4; O2SAT 96
[2017-06-15] MEDS: HYDROmorphone INJ 1 MG/ML SYR IV PRN ×3 (05:49→17:46)
[2017-06-15] MEDS ORDERED: PIPERACILL/TAZOBAC IV 3.375 GM in DEXTROSE 5% 100ML 100 ML IV SCH (06:00)
[2017-06-15] MEDS ORDERED: INSULIN ASPART 100 UNITS/ML 3 ML PEN SC SCH (07:00)
[2017-06-15] MEDS ORDERED: NURSING VERBAL MED ORDER ONE ×3 (07:15→20:15)
[2017-06-15 07:19] VITALS: BP 132/82; PULSE 64; TEMP 36.4; O2SAT 96
--- NOTE | 2017-06-15 07:30 | Family Medicine Progress Note ---
Progress Note Date of Service Jun 15, 2017. Subjective Pt evaluation today including: conversation w/ patient, physical exam, chart review, lab review, review of studies, conversation w/ showroom consultant, review of inpatient medication list Patient feels well currently. He states his NGT was removed secondary to minimal output and coiling seen on imaging. Since its removal, he has not noted any nausea or worsening of abdominal bloating. His abdominal pain is managed by the analgesics provided, however, the spasms do occur intermittently and are severe. He denies passing flatus. His KUB showed moderate fecal load, and as such, patient is awaiting his enema. He otherwise denies fevers/chills, headaches, CP, palpitations, or dyspnea. He has ongoing discomfort from recent right hip replacement surgery and notes that his right lower extremity has been swollen and slightly more red compared to his left. He indicates some pain at the site of previous blister, now ulcer on the bottom of his right foot. ROS is unremarkable except as noted above. Objective Vital Signs Date Time Temp Pulse Resp B/P (MAP) Pulse Ox O2 Delivery O2 Flow Rate FiO2 06/15/17 07:19 36.4 64 18 132/82 (99) 96 Room Air 06/15/17 05:29 36.4 62 14 133/90 (104) 96 Room Air 06/15/17 05:15 36.4 62 14 133/90 96 Room Air 06/15/17 04:44 62 17 136/94 96 06/15/17 04:00 62 18 159/94 98 Room Air 06/15/17 03:00 91 18 161/83 98 Room Air 06/15/17 02:34 70 20 145/89 98 Room Air 06/15/17 01:28 36.9 70 18 154/103 99 Room Air Physical Exam General Appearance: WD/WN, no apparent distress Eyes: normal inspection ENT: hearing grossly normal Neck: supple, no adenopathy Respiratory/Chest: normal breath sounds, no respiratory distress, no accessory muscle use Cardiovascular: regular rate, rhythm, no murmur Abdomen: normal bowel sounds, soft, + tenderness (in the epigatric/LLQ region) Extremities: no calf tenderness, + pedal edema (R>L) Neurologic/Psychiatric: alert, normal mood/affect, oriented x 3 Skin: normal color, + pertinent finding (Dressing around ball of right foot, right leg mildly erythematous compared to left) Laboratory Results Results Past 24 Hours Test 06/15/17 00:00 06/15/17 01:43 06/15/17 01:49 06/15/17 04:19 Range/Units Urine Color YELLOW Urine Appearance CLEAR CLEAR Urine pH 5.5 4.5-7.5 Urine Specific [place] 1.012 1.000-1.030 Urine Protein NEG NEG Urine Glucose (UA) NEG NEG Urine Ketones NEG NEG Urine Occult Blood NEG NEG Urine Nitrite NEG NEG Urine Bilirubin NEG NEG Urine Urobilinogen NEG NEG Urine Leukocyte Esterase NEG NEG Urine WBC (Auto) 0 0-5 /hpf Urine RBC (Auto) 0-4 0-4 /hpf Urine Hyaline Casts (Auto) 0 0-5 /lpf Urine Epithelial Cells (Auto) 0-5 0-5 /lpf Urine Bacteria (Auto) NEG NEG White Blood Count 12.25 4.8-10.8 K/uL Red Blood Count 4.06 4.7-6.1 M/uL Hemoglobin 14.1 14.0-18.0 g/dL Hematocrit 39.9 42-52 % Mean Corpuscular Volume 98.3 80-100 fL Mean Corpuscular Hemoglobin 34.7 25-34 pg Mean Corpuscular Hemoglobin Concent 35.3 32-36 g/dl Platelet Count 323 130-400 K/uL Mean Platelet Volume 9.3 7.4-10.4 fL Neutrophils (%) (Auto) 62.7 % Lymphocytes (%) (Auto) 23.0 % Monocytes (%) (Auto) 7.5 % Eosinophils (%) (Auto) 5.7 % Basophils (%) (Auto) 0.6 % Neutrophils # (Auto) 7.68 1.4-6.5 K/uL Lymphocytes # (Auto) 2.82 1.2-3.4 K/uL Monocytes # (Auto) 0.92 0.11-0.59 K/uL Eosinophils # (Auto) 0.70 0-0.5 K/uL Basophils # (Auto) 0.07 0-0.2 K/uL RDW Standard Deviation 47.4 36.4-46.3 fL RDW Coefficient of Variation 13.4 11.5-14.5 % Immature Granulocyte % (Auto) 0.5 % Immature Granulocyte # (Auto) 0.06 0.00-0.02 K/uL Sodium Level 135 136-145 mmol/L Potassium Level 3.9 3.5-5.1 mmol/L Chloride Level 99 98-107 mmol/L Carbon Dioxide Level 32 21-32 mmol/L Anion Gap 4.0 17.0 16-25 mmol/L Blood Urea Nitrogen 16 7-18 mg/dl Creatinine 1.02 0.60-1.40 mg/dl Est Creatinine Clear Calc Drug Dose 69.0 ml/min Estimated GFR () 84.1 Estimated GFR (Non- 72.6 BUN/Creatinine Ratio 15.5 10-20 Random Glucose 143 70-99 mg/dl Calcium Level 9.4 8.5-10.1 mg/dl Total Bilirubin 0.6 0.2-1 mg/dl Direct Bilirubin < 0.1 0-0.2 mg/dl Aspartate Amino Transf (AST/SGOT) 23 15-37 U/L Alanine Aminotransferase (ALT/SGPT) 48 12-78 U/L Alkaline Phosphatase 188 45-117 U/L Total Protein 7.7 6.4-8.2 gm/dl Albumin 3.9 3.4-5.0 gm/dl Lipase 194 73-393 U/L Bedside Hemoglobin 13.6 14.0-18.0 g/dl Bedside Hematocrit 40 42-52 % Bedside Sodium 140 135-144 mEq/L Bedside Potassium 4.0 3.3-5.0 mEq/L Bedside Chloride 97 101-112 mEq/L Bedside Total CO2 31 24-31 mEq/l Bedside Blood Urea Nitrogen 16 7-18 mg/dl Bedside Creatinine 1.1 0.6-1.3 mg/dl Bedside Glucose (other) 149 70-99 mg/dl Bedside Ionized Calcium (Pinky) 1.17 1.12-1.32 mmol/l Lactic Acid Level 1.9 0.4-2.0 mmol/L Test 06/15/17 07:10 Range/Units Bedside Glucose 153 70-99 mg/dl Assessment and Plan 71 year old male with a pMHx DMII and HTN, s/p right hip arthroplasty presenting with SBO and right lower extremity cellulitis SBO - gen surgery consulted, recs appreciated. CT a/p: small bowel obstruction - transition point identified in left ventral abdomen with mild mucosal thickening No pneumatosis intestinalis, intraperitoneal free air, or portal venous gas. KUB: Moderate colonic fecal retention is identified. An enteric tube is coiled above the diaphragm in the distal esophagus. - NPO - IVF NSS @ 100cc/h - Enema ordered - NGT currently removed, if nausea/vomiting or worsening bloating, will reinsert for decompression - Dilaudid 1mg q3h PRN pain - Zofran PRN nausea Right lower extremity cellulitis secondary to ulceration - Foot XR: Soft tissue edema. Degenerative change. No acute process. - IV abx: Zosyn/vanc - Doppler of R lower extremity - Wound care consult DMII - Insulin ISS and BSG ac/hs HTN/ HLD - PO meds: ASA, metoprolol and rosuvastatin held - IV Hydralazine 5mg q6h for SBP > 180 DVT prophy SCD Full Code Resident Physician Supervision Note: I interviewed and examined the patient. Discussed with Dr. Vance and agree with findings and plan as documented in the note. Any exceptions or clarifications are listed here: None Documented By: Arthur Arriola still hurting, pain meds help but not long enough no further vomiting vitals noted nad breathing unlabored no pallor or icterus SBO - adhesional - improving slowly still hurting - increase frequency of pain meds, otehrwise as above Resident Tracking Resident Involvement: Resident Care Provided Care Provided: Adult Hospital Medicine
--- NOTE | 2017-06-15 07:41 | Surgery Consultation ---
Consultation Date of Consultation: Jun 15, 2017. Attending Physician: Mauricio Carroll M.D. Reason for Consultation: small bowel obstruction History of Present Illness Patient is a 71M who presented to the ED last night around 2300 with severe acute abdominal pain which he describes as a 10/10 at the time. Denies any accompanying nausea, vomiting, fever, chills or recent illness. States he last ate around 1700 without problems and had a BM shortly after that without problems as well. He denies any BM or flatus since then. He has been urinating without difficulty. PSHx significant for cholecystectomy, appendectomy, partial colectomy due to diverticulitis, and recent right hip replacement approximately 3 weeks ago. He does currently take Aspirin 325mg po BID. Denies use of other blood thinning or anticoagulant medications. He Denies symptoms like this in the past. Past Medical/Surgical History Medical Problems: (1) Bursitis of right hip Status: Acute (2) Herniated disc Status: Acute (3) Lumbar radiculopathy Status: Acute (4) Sialoadenitis of submandibular gland Status: Acute Family History Abdominal aortic aneurysm (AAA) Colon cancer Coronary artery disease Stroke Social History Smoking Status: Former Smoker Smokeless Tobacco Use: No Alcohol Use: none Drug Use: none Marital Status: Housing Status: lives with family Occupation Status: retired Allergies Coded Allergies: NSAIDs (Verified Adverse Reaction, Mild, UPSET STOMACH/ABDOMINAL PAINS, ) Prednisone (Verified Adverse Reaction, Mild, GI UPSET, ABDOMINAL CRAMPING , 06/15/17) Home Medications Scheduled Aspirin (Aspirin Ec), 325 MG PO BID Metformin HCl (Metformin HCl), 500 MG PO BID Metoprolol Tartrate (Lopressor) (Lopressor), 12.5 MG PO BID Oxycodone Hcl (Oxycodone Hcl), 5-10 MG PO Q4 Pantoprazole (Protonix), 40 MG PO Q2D Rosuvastatin Calcium (Rosuvastatin Calcium), 10 MG PO QAM Scheduled PRN Albuterol Sulfate (Proair Respiclick), 2 PUFF INH Q4 PRN for SOB/Wheezing Current Inpatient Medications Current Inpatient Medications Medications (Trade) Dose Ordered Sig/Yee Route Start Time Stop Time Status Last Admin Dose Admin Ioversol (Optiray 320) 100 ml UD PRN IV 06/15/17 01:45 06/19/17 01:44 Ondansetron HCl (Zofran Inj) 4 mg Q6H PRN IV 06/15/17 04:15 07/15/17 04:14 Hydromorphone HCl (Dilaudid Inj) 1 mg Q3H PRN IV 06/15/17 04:15 06/29/17 04:14 06/15/17 05:49 1 MG Morphine Sulfate (MoRPHine SULFATE INJ) 3 mg Q3H PRN IV 06/15/17 04:15 06/29/17 04:14 Miscellaneous Information (Consult) 1 ea UD PRN N/A 06/15/17 04:15 07/15/17 04:14 Miscellaneous Information (Consult) 1 ea UD PRN N/A 06/15/17 04:15 07/15/17 04:14 Sodium Chloride 1,000 ml @ 100 mls/hr Q10H IV 06/15/17 05:30 07/15/17 05:29 Vancomycin HCl 2250 mg/Sodium Chloride 545 ml @ 200 mls/hr TODAY@0500 IV 06/15/17 05:00 06/15/17 07:44 06/15/17 07:11 200 MLS/HR Hydralazine HCl (HydrALAZINE INJ) 5 mg Q6H PRN IV. 06/15/17 04:30 07/15/17 04:29 Glucose (Glucose 40% Gel) 15-30 GRAMS 15 GRAMS... UD PRN PO 06/15/17 04:45 07/15/17 04:44 Glucose (Glucose Chew Tab) 4-8 Tablets 4 Tabl... UD PRN PO 06/15/17 04:45 07/15/17 04:44 Dextrose (Dextrose 50% 50ML Syringe) 25-50ML OF 50% DW IV FOR... UD PRN IV 06/15/17 04:45 07/15/17 04:44 Glucagon (Glucagon Inj) 1 mg UD PRN SQ 06/15/17 04:45 07/15/17 04:44 Piperacillin Sod/ Tazobactam Sod 3.375 gm/Dextrose 115 ml @ 28.75 mls/ hr Q8H IV 06/15/17 10:00 06/25/17 09:59 Insulin Aspart (novoLOG ASPART) SLIDING SCALE G... Q6H MA 06/15/17 12:00 07/15/17 11:59 Review of Systems Constitutional: No fever, No chills Respiratory: No cough, No shortness of breath Cardiovascular: No chest pain Abdomen: + pain (generalized), + constipation, No nausea, No vomiting, No diarrhea Genitourinary - Male: No hematuria, No dysuria Integumentary: No color change Physical Exam Date Time Temp Pulse Resp B/P (MAP) Pulse Ox O2 Delivery O2 Flow Rate FiO2 06/15/17 07:19 36.4 64 18 132/82 (99) 96 Room Air 06/15/17 05:29 36.4 62 14 133/90 (104) 96 Room Air 06/15/17 05:15 36.4 62 14 133/90 96 Room Air 06/15/17 04:44 62 17 136/94 96 06/15/17 04:00 62 18 159/94 98 Room Air 06/15/17 03:00 91 18 161/83 98 Room Air 06/15/17 02:34 70 20 145/89 98 Room Air 06/15/17 01:28 36.9 70 18 154/103 99 Room Air patient laying in bed, NGT in place with no output. General Appearance: WD/WN, no apparent distress Head: normocephalic, atraumatic ENT: hearing grossly normal Neck: trachea midline Respiratory/Chest: no respiratory distress, no accessory muscle use Abdomen/GI: normal bowel sounds, no organomegaly, no pulsatile mass, + tenderness (generalized), + distended (mild), + pertinent finding (generalized bloating) Neurologic/Psych: alert, normal mood/affect, oriented x 3 Skin: normal color, warm/dry Laboratory Results Last 24 Hours Test 06/15/17 00:00 06/15/17 01:43 06/15/17 01:49 06/15/17 04:19 Urine Color YELLOW Urine Appearance CLEAR Urine pH 5.5 Urine Specific [place] 1.012 Urine Protein NEG Urine Glucose (UA) NEG Urine Ketones NEG Urine Occult Blood NEG Urine Nitrite NEG Urine Bilirubin NEG Urine Urobilinogen NEG Urine Leukocyte Esterase NEG Urine WBC (Auto) 0 /hpf Urine RBC (Auto) 0-4 /hpf Urine Hyaline Casts (Auto) 0 /lpf Urine Epithelial Cells (Auto) 0-5 /lpf Urine Bacteria (Auto) NEG White Blood Count 12.25 K/uL Red Blood Count 4.06 M/uL Hemoglobin 14.1 g/dL Hematocrit 39.9 % Mean Corpuscular Volume 98.3 fL Mean Corpuscular Hemoglobin 34.7 pg Mean Corpuscular Hemoglobin Concent 35.3 g/dl Platelet Count 323 K/uL Mean Platelet Volume 9.3 fL Neutrophils (%) (Auto) 62.7 % Lymphocytes (%) (Auto) 23.0 % Monocytes (%) (Auto) 7.5 % Eosinophils (%) (Auto) 5.7 % Basophils (%) (Auto) 0.6 % Neutrophils # (Auto) 7.68 K/uL Lymphocytes # (Auto) 2.82 K/uL Monocytes # (Auto) 0.92 K/uL Eosinophils # (Auto) 0.70 K/uL Basophils # (Auto) 0.07 K/uL RDW Standard Deviation 47.4 fL RDW Coefficient of Variation 13.4 % Immature Granulocyte % (Auto) 0.5 % Immature Granulocyte # (Auto) 0.06 K/uL Sodium Level 135 mmol/L Potassium Level 3.9 mmol/L Chloride Level 99 mmol/L Carbon Dioxide Level 32 mmol/L Anion Gap 4.0 mmol/L 17.0 mmol/L Blood Urea Nitrogen 16 mg/dl Creatinine 1.02 mg/dl Est Creatinine Clear Calc Drug Dose 69.0 ml/min Estimated GFR () 84.1 Estimated GFR (Non- 72.6 BUN/Creatinine Ratio 15.5 Random Glucose 143 mg/dl Calcium Level 9.4 mg/dl Total Bilirubin 0.6 mg/dl Direct Bilirubin < 0.1 mg/dl Aspartate Amino Transf (AST/SGOT) 23 U/L Alanine Aminotransferase (ALT/SGPT) 48 U/L Alkaline Phosphatase 188 U/L Total Protein 7.7 gm/dl Albumin 3.9 gm/dl Lipase 194 U/L Bedside Hemoglobin 13.6 g/dl Bedside Hematocrit 40 % Bedside Sodium 140 mEq/L Bedside Potassium 4.0 mEq/L Bedside Chloride 97 mEq/L Bedside Total CO2 31 mEq/l Bedside Blood Urea Nitrogen 16 mg/dl Bedside Creatinine 1.1 mg/dl Bedside Glucose (other) 149 mg/dl Bedside Ionized Calcium (Pinky) 1.17 mmol/l Lactic Acid Level 1.9 mmol/L Test 06/15/17 07:10 Bedside Glucose 153 mg/dl Assessment & Plan small bowel obstruction pain controlled, No N/V, afebrile, No BM or flatus yet, WBC 12.25. NGT in place - no output yet - will get a KUB to evaluate placement. No acute surgical intervention indicated at this time. Continue conservative management. - NPO, NGT, IV fluids, IV pain medication PRN, IV Zofran for Nausea. Patient seen and examined with Dr. Lamar. Please contact with questions or concerns.
--- NOTE | 2017-06-15 07:56 | DIAGNOSTIC IMAGING REPORT ---
CT SCAN OF THE ABDOMEN AND PELVIS WITH IV CONTRAST CLINICAL HISTORY: Left lower quadrant abdominal pain. COMPARISON STUDY: Abdominal CT dated 08/15/2016. TECHNIQUE: Following the IV administration of 94 cc of Optiray 320, CT scan of the abdomen and pelvis is performed from the lung bases to the proximal femora. Images are reviewed in the axial, sagittal, and coronal planes. IV contrast was administered without complication. A dose lowering technique was utilized adhering to the principles of ALARA. CT DOSE: 714.77 mGy.cm FINDINGS: Lung bases: The heart is normal in size and without pericardial effusion. The coronary arteries are densely calcified. The lung bases are clear. There is a tiny hiatal hernia. Liver: The contrast-enhanced liver is normal in size, contour, and attenuation. There is mild central intrahepatic biliary ductal dilatation. The hepatic veins and portal veins are patent. A 1.5 cm cyst is noted in the left lobe. Gallbladder: Surgically absent noting clips in the gallbladder fossa. Spleen: Normal in size and attenuation. Pancreas: Moderately atrophic and grossly unremarkable. Adrenal glands: Unremarkable. Kidneys: The contrast enhanced kidneys demonstrate cortical atrophy and are without hydronephrosis. The kidneys enhance symmetrically. Abdominal vasculature: The abdominal aorta is normal in course and caliber noting moderate atherosclerotic calcification. Bowel: The proximal small bowel loops are distended and fluid-filled, measuring up to 3.9 cm in diameter. There is a transition point identified in the left ventral abdomen on image #191. The distal small bowel loops are decompressed in the appearance is consistent with a small bowel obstruction. Mild mucosal thickening/hyperemia is suggested at the transition point. There is no pneumatosis intestinalis or portal venous gas. There is mild colonic fecal retention. The appendix is normal as visualized. Peritoneum: There is no intraperitoneal free air or abdominal ascites. Lymphadenopathy: None. Pelvic viscera: Evaluation of the pelvis is degraded by streak artifact from a right hip are hypoplastic. The prostate gland is enlarged and heterogeneous, measuring 5 cm in transverse outer. There is median lobe hypertrophy. The bladder wall is thickened and trabeculated suggesting chronic outlet obstruction. Skeletal structures: The skeletal structures are osteopenic. There is moderate lumbosacral spondylosis and scoliosis. A hemangioma is noted in the body of T11. No lytic or blastic lesions are seen. A right hip arthroplasty is in place. Moderate to advanced arthritic change is seen in the sacroiliac joints and left hip. IMPRESSION: 1. Findings are consistent with a small bowel obstruction. A transition point is identified in the left ventral abdomen. Mild mucosal thickening is questioned at the transition point. This may be the basis of adhesions or less likely inflammation. Clinical correlation will be required. 2. There is no pneumatosis intestinalis, intraperitoneal free air, or portal venous gas. 3. Additional findings as above. Electronically signed by: Silviano Ortega M.D. 06/15/2017 7:55 AM Dictated Date/Time: 06/15/2017 7:46 AM
--- NOTE | 2017-06-15 08:15 | DIAGNOSTIC IMAGING REPORT ---
KUB CLINICAL HISTORY: Enteric tube placement. FINDINGS: 2 AP, portable, supine abdominal radiographs are correlated with abdominal CT dated 06/15/2017. An enteric tube is coiled above the diaphragm in the distal esophagus. Cholecystectomy clips are noted. Moderate colonic fecal retention is identified. The small bowel obstruction seen by CT is not apparent by x-ray. No evidence of intraperitoneal free air is present on the supine images. Excreted contrast is noted in the bladder. The skeletal structures are osteopenic. Mild lumbosacral spondylosis is observed. A right hip arthroplasty is in place. IMPRESSION: 1. An enteric tube is coiled above the diaphragm in the distal esophagus. Repositioning is indicated. 2. The small bowel obstruction seen by CT is not apparent by x-ray. Electronically signed by: Silviano Ortega M.D. 06/15/2017 8:14 AM Dictated Date/Time: 06/15/2017 8:12 AM
--- NOTE | 2017-06-15 08:18 | DIAGNOSTIC IMAGING REPORT ---
R FOOT MIN 3 VIEWS ROUTINE CLINICAL HISTORY: assess for osteo pain. Infection. COMPARISON: None. DISCUSSION: Generalized degenerative change. Heel spur. Soft tissue edema dorsal to the foot no lytic or blastic process. Findings deformity distal aspect first metatarsal. IMPRESSION: Soft tissue edema. Degenerative change. No acute process. The above report was generated using voice recognition software. It may contain grammatical, syntax or spelling errors. Electronically signed by: Tacho Watt M.D. 06/15/2017 8:16 AM Dictated Date/Time: 06/15/2017 8:15 AM
[2017-06-15] MEDS ORDERED: SOD PHOSPHATE/SOD BIPHOSPHATE ENEMA 132 ML BTL PR STA (08:59)
[2017-06-15] MEDS ORDERED: VANCOMYCIN INJ 1,000 MG in SODIUM CHLORIDE 0.9% 250ML 250 ML IV SCH (09:00)
--- NOTE | 2017-06-15 09:20 | Pharmacy Progress Note ---
Pharmacy Antibiotic Consult Date of Service: Jun 15, 2017. Pharmacy Dosing Scope Pharmacy is consulted to initiate vancomycin and zosyn IV dosing therapy, order appropriate labs and adjust drug dose/frequency. Subjective The patient is a 71 year old male admitted on Jun 15, 2017 at 04:09. Objective Height (Feet): 5 Height (Inches): 7.00 Weight (Kilograms): 90.000 Lab Results (24hrs): Test 06/15/17 00:00 06/15/17 01:43 06/15/17 01:49 06/15/17 04:19 Urine Color YELLOW Urine Appearance CLEAR (CLEAR) Urine pH 5.5 (4.5-7.5) Urine Specific [place] 1.012 (1.000-1.030) Urine Protein NEG (NEG) Urine Glucose (UA) NEG (NEG) Urine Ketones NEG (NEG) Urine Occult Blood NEG (NEG) Urine Nitrite NEG (NEG) Urine Bilirubin NEG (NEG) Urine Urobilinogen NEG (NEG) Urine Leukocyte Esterase NEG (NEG) Urine WBC (Auto) 0 /hpf (0-5) Urine RBC (Auto) 0-4 /hpf (0-4) Urine Hyaline Casts (Auto) 0 /lpf (0-5) Urine Epithelial Cells (Auto) 0-5 /lpf (0-5) Urine Bacteria (Auto) NEG (NEG) White Blood Count 12.25 K/uL (4.8-10.8) Red Blood Count 4.06 M/uL (4.7-6.1) Hemoglobin 14.1 g/dL (14.0-18.0) Hematocrit 39.9 % (42-52) Mean Corpuscular Volume 98.3 fL (80-100) Mean Corpuscular Hemoglobin 34.7 pg (25-34) Mean Corpuscular Hemoglobin Concent 35.3 g/dl (32-36) Platelet Count 323 K/uL (130-400) Mean Platelet Volume 9.3 fL (7.4-10.4) Neutrophils (%) (Auto) 62.7 % Lymphocytes (%) (Auto) 23.0 % Monocytes (%) (Auto) 7.5 % Eosinophils (%) (Auto) 5.7 % Basophils (%) (Auto) 0.6 % Neutrophils # (Auto) 7.68 K/uL (1.4-6.5) Lymphocytes # (Auto) 2.82 K/uL (1.2-3.4) Monocytes # (Auto) 0.92 K/uL (0.11-0.59) Eosinophils # (Auto) 0.70 K/uL (0-0.5) Basophils # (Auto) 0.07 K/uL (0-0.2) RDW Standard Deviation 47.4 fL (36.4-46.3) RDW Coefficient of Variation 13.4 % (11.5-14.5) Immature Granulocyte % (Auto) 0.5 % Immature Granulocyte # (Auto) 0.06 K/uL (0.00-0.02) Sodium Level 135 mmol/L (136-145) Potassium Level 3.9 mmol/L (3.5-5.1) Chloride Level 99 mmol/L (98-107) Carbon Dioxide Level 32 mmol/L (21-32) Anion Gap 4.0 mmol/L (3-11) 17.0 mmol/L (16-25) Blood Urea Nitrogen 16 mg/dl (7-18) Creatinine 1.02 mg/dl (0.60-1.40) Est Creatinine Clear Calc Drug Dose 69.0 ml/min Estimated GFR () 84.1 Estimated GFR (Non- 72.6 BUN/Creatinine Ratio 15.5 (10-20) Random Glucose 143 mg/dl (70-99) Calcium Level 9.4 mg/dl (8.5-10.1) Total Bilirubin 0.6 mg/dl (0.2-1) Direct Bilirubin < 0.1 mg/dl (0-0.2) Aspartate Amino Transf (AST/SGOT) 23 U/L (15-37) Alanine Aminotransferase (ALT/SGPT) 48 U/L (12-78) Alkaline Phosphatase 188 U/L (45-117) Total Protein 7.7 gm/dl (6.4-8.2) Albumin 3.9 gm/dl (3.4-5.0) Lipase 194 U/L (73-393) Bedside Hemoglobin 13.6 g/dl (14.0-18.0) Bedside Hematocrit 40 % (42-52) Bedside Sodium 140 mEq/L (135-144) Bedside Potassium 4.0 mEq/L (3.3-5.0) Bedside Chloride 97 mEq/L (101-112) Bedside Total CO2 31 mEq/l (24-31) Bedside Blood Urea Nitrogen 16 mg/dl (7-18) Bedside Creatinine 1.1 mg/dl (0.6-1.3) Bedside Glucose (other) 149 mg/dl (70-99) Bedside Ionized Calcium (Pinky) 1.17 mmol/l (1.12-1.32) Lactic Acid Level 1.9 mmol/L (0.4-2.0) Test 06/15/17 07:10 Bedside Glucose 153 mg/dl (70-99) Assessment & Plan Patient started on vancomycin and zosyn for lower extremity cellulitis secondary to ulceration. Of note, recent right hip arthroplasty done earlier this month. X ray ordered to rule out osteomyelitis. Vancomycin: * LD of vancomycin 2250 mg x 1 given (~25 mg/kg) * Will start vancomycin 1250 (~14 mg/kg) iv q 12 hrs to achieve an estimated trough ~15-20 mcg/ml * Vancomycin ordered empirically x 48 hrs - if therapy is to be continued will order a trough * Estimated kinetics: t1/2~11 hrs, ke~0.06 hr-1, CrCl ~69 ml/min Zosyn: * 3.375 gm iv q 8 hrs (appropriate for CrCl >20 ml/min) - no changes necessary Pharmacy will continue to follow and will adjust dose/frequency as necessary. Thank you
--- NOTE | 2017-06-15 09:46 | SURGERY PROGRESS NOTE ---
DATE: 06/15/2017 SUBJECTIVE: Since we saw the patient this morning, he had an NG tube placed in the Emergency Room and was not draining. We elected to get a flat plate of the abdomen to see positioning and the NG tube demonstrates that its coil probably in the distal esophagus. Having said that the flat plate does not show any evidence of any small-bowel obstruction. At this time, it seems to have a significant fecal load. At this point, we will go ahead and give him some enemas and keep him n.p.o. and hopefully this will resolve and avoid placing an NG tube. ANN MARIE
[2017-06-15] MEDS: SODIUM CHLORIDE 0.45% 1000ML 1,000 ML IV SCH ×2 (10:39→19:59)
[2017-06-15] MEDS: PIPERACILL/TAZOBAC IV 3.375 GM in DEXTROSE 5% 100ML IV SCH ×2 (10:39→18:42)
[2017-06-15] MEDS ORDERED: HYDROmorphone INJ 1 MG/ML SYR IV ONE (13:15)
[2017-06-15] MEDS: INSULIN ASPART 100 UNITS/ML 3 ML PEN SC SCH ×3 (13:53→23:49)
--- NOTE | 2017-06-15 14:29 | DIAGNOSTIC IMAGING REPORT ---
R VENOUS DOPP LOWER EXT UNILAT CLINICAL HISTORY: swelling of right LE pain. Edema. TECHNIQUE: Venous Doppler COMPARISON STUDY: None FINDINGS: Normal study IMPRESSION: Normal study The above report was generated using voice recognition software. It may contain grammatical, syntax or spelling errors. Electronically signed by: Tacho Watt M.D. 06/15/2017 2:27 PM Dictated Date/Time: 06/15/2017 2:26 PM
[2017-06-15 14:45] VITALS: Ht 170.2 cm; Wt 90.0 kg
[2017-06-15 14:57] VITALS: BP 121/82; PULSE 74; TEMP 36.3; O2SAT 94
[2017-06-15] MEDS: VANCOMYCIN INJ 1,250 MG in SODIUM CHLORIDE 0.9% 250ML 250 ML IV SCH (19:59)
[2017-06-15 23:43] VITALS: BP 109/65; PULSE 72; TEMP 36.6; O2SAT 95
[2017-06-16] MEDS: HYDROmorphone INJ 1 MG/ML SYR IV PRN ×2 (00:21→15:41)
[2017-06-16] MEDS: PIPERACILL/TAZOBAC IV 3.375 GM in DEXTROSE 5% 100ML IV SCH ×3 (02:07→19:09)
[2017-06-16] MEDS: SODIUM CHLORIDE 0.45% 1000ML 1,000 ML IV SCH ×3 (05:30→19:58)
[2017-06-16] MEDS: INSULIN ASPART 100 UNITS/ML 3 ML PEN SC SCH ×3 (06:00→20:57)
[2017-06-16 06:55] VITALS: BP 127/83; PULSE 75; TEMP 36.9; O2SAT 98
[2017-06-16 07:39] LABS: HEMATOCRIT 36.7 % (42-52); HEMOGLOBIN 12.9 g/dL (14.0-18.0); MEAN CELL VOLUME 98.1 fL (80-100); MEAN CORPUSCULAR HEMOGLOBIN 34.5 pg (25-34); MEAN CORPUSCULAR HGB CONC 35.1 g/dl (32-36); MEAN PLATELET VOLUME 9.5 fL (7.4-10.4); PLATELET COUNT 259 K/uL (130-400); RED CELL DISTRIBUTION WIDTH CV 13.4 % (11.5-14.5); RED CELL DISTRIBUTION WIDTH SD 47.3 fL (36.4-46.3); WHITE BLOOD COUNT 7.44 K/uL (4.8-10.8)
[2017-06-16] MEDS: VANCOMYCIN INJ 1,250 MG in SODIUM CHLORIDE 0.9% 250ML 250 ML IV SCH ×2 (07:54→19:57)
[2017-06-16 08:09] LABS: CALCIUM 9.2 mg/dl (8.5-10.1); CREATININE 0.96 mg/dl (0.60-1.40)
--- NOTE | 2017-06-16 10:54 | Surgery Progress Note ---
Surgery Progress Note Date of Service Jun 16, 2017. Subjective + bowel movement, + flatus, No nausea, No vomiting Feels better today Much less pain Objective Vital Signs: Date Time Temp Pulse Resp B/P (MAP) Pulse Ox O2 Delivery O2 Flow Rate FiO2 06/16/17 06:55 36.9 75 16 127/83 (98) 98 Room Air 06/15/17 23:48 Room Air 06/15/17 23:43 36.6 72 15 109/65 (80) 95 Room Air 06/15/17 15:55 Room Air 06/15/17 14:57 36.3 74 18 121/82 (95) 94 Room Air Abdomen: normal bowel sounds, non distended, soft, + tenderness (left side, moderate) Laboratory Results: Results Past 24 Hours Test 06/15/17 13:02 06/15/17 17:58 06/15/17 23:47 06/16/17 07:14 Range/Units Bedside Glucose 166 157 123 70-99 mg/dl White Blood Count 7.44 4.8-10.8 K/uL Red Blood Count 3.74 4.7-6.1 M/uL Hemoglobin 12.9 14.0-18.0 g/dL Hematocrit 36.7 42-52 % Mean Corpuscular Volume 98.1 80-100 fL Mean Corpuscular Hemoglobin 34.5 25-34 pg Mean Corpuscular Hemoglobin Concent 35.1 32-36 g/dl RDW Standard Deviation 47.3 36.4-46.3 fL RDW Coefficient of Variation 13.4 11.5-14.5 % Platelet Count 259 130-400 K/uL Mean Platelet Volume 9.5 7.4-10.4 fL Sodium Level 137 136-145 mmol/L Potassium Level 3.5-5.1 mmol/L Chloride Level 104 98-107 mmol/L Carbon Dioxide Level 28 21-32 mmol/L Anion Gap 5.0 3-11 mmol/L Blood Urea Nitrogen 12 7-18 mg/dl Creatinine 0.96 0.60-1.40 mg/dl Est Creatinine Clear Calc Drug Dose 73.3 ml/min Estimated GFR () 90.5 Estimated GFR (Non- 78.1 BUN/Creatinine Ratio 12.6 10-20 Random Glucose 136 70-99 mg/dl Calcium Level 9.2 8.5-10.1 mg/dl Assessment & Plan SBO seems to be resolving NO nausea or vomiting without NGT Will begin PO slowly today with clear liquids
[2017-06-16] MEDS ORDERED: NURSING DECISION MEDICATION ORDER SCH (12:15)
[2017-06-16 15:49] VITALS: BP 143/77; PULSE 74; TEMP 36.8; O2SAT 95
[2017-06-16 16:00] VITALS: BP 123/79; PULSE 73; TEMP 36.5; O2SAT 98
--- NOTE | 2017-06-16 17:14 | Family Medicine Progress Note ---
Progress Note Date of Service Jun 16, 2017. Subjective Pt evaluation today including: conversation w/ patient (Pt reports having a bowel movement this morning at around 0900, no pain when passing, normal in appearance, thin. Otherwise notes mild abdominal pain, denies nausea/vomiting, CP, Sob. Reports some pain in his RT hip at his hip replacement scar. Denies pain in his right foot. No NGT present. Water at bedside. ROS otherwise unremarkable.) Pain: mild, abdominal PO Intake: NPO Voiding: no voiding problems Medications Current Inpatient Medications Medications (Trade) Dose Ordered Sig/Yee Route Start Time Stop Time Status Last Admin Dose Admin Ioversol (Optiray 320) 100 ml UD PRN IV 06/15/17 01:45 06/19/17 01:44 Ondansetron HCl (Zofran Inj) 4 mg Q6H PRN IV 06/15/17 04:15 07/15/17 04:14 06/16/17 00:26 4 MG Hydromorphone HCl (Dilaudid Inj) 1 mg Q3H PRN IV 06/15/17 04:15 06/29/17 04:14 06/16/17 00:21 1 MG Miscellaneous Information (Consult) 1 ea UD PRN N/A 06/15/17 04:15 07/15/17 04:14 Miscellaneous Information (Consult) 1 ea UD PRN N/A 06/15/17 04:15 07/15/17 04:14 Sodium Chloride 1,000 ml @ 100 mls/hr Q10H IV 06/15/17 05:30 07/15/17 05:29 06/15/17 19:59 100 MLS/HR Hydralazine HCl (HydrALAZINE INJ) 5 mg Q6H PRN IV. 06/15/17 04:30 07/15/17 04:29 Glucose (Glucose 40% Gel) 15-30 GRAMS 15 GRAMS... UD PRN PO 06/15/17 04:45 07/15/17 04:44 Glucose (Glucose Chew Tab) 4-8 Tablets 4 Tabl... UD PRN PO 06/15/17 04:45 07/15/17 04:44 Dextrose (Dextrose 50% 50ML Syringe) 25-50ML OF 50% DW IV FOR... UD PRN IV 06/15/17 04:45 07/15/17 04:44 Glucagon (Glucagon Inj) 1 mg UD PRN SQ 06/15/17 04:45 07/15/17 04:44 Piperacillin Sod/ Tazobactam Sod 3.375 gm/Dextrose 115 ml @ 28.75 mls/ hr Q8H IV 06/15/17 10:00 06/25/17 09:59 06/16/17 02:07 28.75 MLS/HR Insulin Aspart (novoLOG ASPART) SLIDING SCALE G... Q6H SC 06/15/17 12:00 07/15/17 11:59 06/15/17 13:53 1 UNITS Vancomycin HCl 1250 mg/Sodium Chloride 275 ml @ 125 mls/hr Q12H IV 06/15/17 20:00 06/17/17 19:59 06/16/17 07:54 125 MLS/HR Objective Physical Exam General Appearance: WD/WN, no apparent distress Eyes: normal inspection, EOMI Respiratory/Chest: lungs clear, normal breath sounds, no respiratory distress Cardiovascular: regular rate, rhythm Abdomen: normal bowel sounds, soft, + pertinent finding (moderate tenderness in LLQ. No guarding. Moderate distention.) Extremities: no calf tenderness, + pertinent finding (wound dressing in place on RT foot. Moderate erythema in RT ankle. No edema.) Skin: warm/dry, + pertinent finding (as above) Laboratory Results 06/16/17 07:14 06/16/17 07:14 Test 06/15/17 23:47 06/16/17 07:14 Bedside Glucose 123 mg/dl (70-99) Red Blood Count 3.74 M/uL (4.7-6.1) Mean Corpuscular Volume 98.1 fL (80-100) Mean Corpuscular Hemoglobin 34.5 pg (25-34) Mean Corpuscular Hemoglobin Concent 35.1 g/dl (32-36) RDW Standard Deviation 47.3 fL (36.4-46.3) RDW Coefficient of Variation 13.4 % (11.5-14.5) Mean Platelet Volume 9.5 fL (7.4-10.4) Anion Gap 5.0 mmol/L (3-11) Est Creatinine Clear Calc Drug Dose 73.3 ml/min Estimated GFR () 90.5 Estimated GFR (Non- 78.1 BUN/Creatinine Ratio 12.6 (10-20) Calcium Level 9.2 mg/dl (8.5-10.1) Assessment and Plan 71 year old male with a pMHx DMII and HTN, s/p right hip arthroplasty presenting with SBO and right lower extremity cellulitis SBO - gen surgery consulted, recs appreciated. CT a/p: small bowel obstruction - transition point identified in left ventral abdomen with mild mucosal thickening No pneumatosis intestinalis, intraperitoneal free air, or portal venous gas. KUB: Moderate colonic fecal retention is identified. An enteric tube is coiled above the diaphragm in the distal esophagus. - starting clears later this morning - follow and advance as tolerated - IVF NSS @ 100cc/h - NGT dc'ed yesterday but if nausea/vomiting or worsening bloating, will reinsert for decompression - Dilaudid 1mg q3h PRN pain - Zofran PRN nausea Right lower extremity cellulitis secondary to ulceration - Foot XR: Soft tissue edema. Degenerative change. No acute process. - IV abx: Zosyn/vanc - Wound care consult on board DMII - Insulin ISS and BSG ac/hs HTN/ HLD - PO meds: ASA, metoprolol and rosuvastatin held - IV Hydralazine 5mg q6h for SBP > 180 DVT prophy SCD Full Code Resident Physician Supervision Note: I interviewed and examined the patient. Discussed with Dr. Garrett and agree with findings and plan as documented in the note. Any exceptions or clarifications are listed here: None Documented By: Arthur Arriola feeling better less pain vitals noted nad abd less distended still soemwhat tender but less so SBO - improving - clear liquids, supportive care, otherwise as above Continued [facility] stay due to: multiple IV medications needed Resident Tracking Resident Involvement: Resident Care Provided Care Provided: Adult Hospital Medicine
[2017-06-16 23:29] VITALS: BP 129/78; PULSE 70; TEMP 36.5; O2SAT 97
[2017-06-17] MEDS: PIPERACILL/TAZOBAC IV 3.375 GM in DEXTROSE 5% 100ML IV SCH ×2 (02:05→10:56)
[2017-06-17 07:13] LABS: HEMATOCRIT 35.9 % (42-52); HEMOGLOBIN 12.4 g/dL (14.0-18.0); MEAN CELL VOLUME 97.6 fL (80-100); MEAN CORPUSCULAR HEMOGLOBIN 33.7 pg (25-34); MEAN CORPUSCULAR HGB CONC 34.5 g/dl (32-36); MEAN PLATELET VOLUME 9.3 fL (7.4-10.4); PLATELET COUNT 266 K/uL (130-400); RED CELL DISTRIBUTION WIDTH CV 13.2 % (11.5-14.5); RED CELL DISTRIBUTION WIDTH SD 45.8 fL (36.4-46.3); WHITE BLOOD COUNT 7.02 K/uL (4.8-10.8)
[2017-06-17 07:30] VITALS: BP 139/80; PULSE 73; TEMP 36.7; O2SAT 93
[2017-06-17 07:45] LABS: CALCIUM 9.3 mg/dl (8.5-10.1); POTASSIUM 3.6 mmol/L (3.5-5.1)
[2017-06-17] MEDS: VANCOMYCIN INJ 1,250 MG in SODIUM CHLORIDE 0.9% 250ML 250 ML IV SCH (07:57)
[2017-06-17] MEDS: INSULIN ASPART 100 UNITS/ML 3 ML PEN SC SCH ×4 (09:35→20:38)
--- NOTE | 2017-06-17 09:36 | Family Medicine Progress Note ---
Progress Note Date of Service Jun 17, 2017. Subjective Pt evaluation today including: conversation w/ patient, physical exam, chart review, lab review Pain: denies PO Intake: tolerating clears Voiding: no voiding problems Feeling well, denies abdominal pain. Requests for his pain meds to be de- escalated. Otherwise no complaints, getting up out of bed with assistance, walker. Medications Current Inpatient Medications Medications (Trade) Dose Ordered Sig/Yee Route Start Time Stop Time Status Last Admin Dose Admin Ioversol (Optiray 320) 100 ml UD PRN IV 06/15/17 01:45 06/19/17 01:44 Ondansetron HCl (Zofran Inj) 4 mg Q6H PRN IV 06/15/17 04:15 07/15/17 04:14 06/16/17 00:26 4 MG Hydromorphone HCl (Dilaudid Inj) 1 mg Q3H PRN IV 06/15/17 04:15 06/29/17 04:14 06/16/17 15:41 1 MG Miscellaneous Information (Consult) 1 ea UD PRN N/A 06/15/17 04:15 07/15/17 04:14 Miscellaneous Information (Consult) 1 ea UD PRN N/A 06/15/17 04:15 06/17/17 23:59 Sodium Chloride 1,000 ml @ 100 mls/hr Q10H IV 06/15/17 05:30 07/15/17 05:29 06/16/17 19:58 100 MLS/HR Hydralazine HCl (HydrALAZINE INJ) 5 mg Q6H PRN IV. 06/15/17 04:30 07/15/17 04:29 Glucose (Glucose 40% Gel) 15-30 GRAMS 15 GRAMS... UD PRN PO 06/15/17 04:45 07/15/17 04:44 Glucose (Glucose Chew Tab) 4-8 Tablets 4 Tabl... UD PRN PO 06/15/17 04:45 07/15/17 04:44 Dextrose (Dextrose 50% 50ML Syringe) 25-50ML OF 50% DW IV FOR... UD PRN IV 06/15/17 04:45 07/15/17 04:44 Glucagon (Glucagon Inj) 1 mg UD PRN SQ 06/15/17 04:45 07/15/17 04:44 Piperacillin Sod/ Tazobactam Sod 3.375 gm/Dextrose 115 ml @ 28.75 mls/ hr Q8H IV 06/15/17 10:00 06/25/17 09:59 06/17/17 02:05 28.75 MLS/HR Vancomycin HCl 1250 mg/Sodium Chloride 275 ml @ 125 mls/hr Q12H IV 06/15/17 20:00 06/17/17 19:59 06/17/17 07:57 125 MLS/HR Insulin Aspart (novoLOG ASPART) SLIDING SCALE G... ACHS SC 06/16/17 17:15 07/16/17 17:14 06/16/17 12:42 1 UNITS Objective Vital Signs Date Time Temp Pulse Resp B/P (MAP) Pulse Ox O2 Delivery O2 Flow Rate FiO2 06/17/17 07:30 36.7 73 17 139/80 (99) 93 Nasal Cannula 5.0 06/16/17 23:29 36.5 70 16 129/78 (95) 97 Room Air 06/16/17 23:10 Room Air 06/16/17 16:00 36.5 73 16 123/79 (94) 98 Room Air 06/16/17 15:40 Room Air Physical Exam General Appearance: WD/WN, no apparent distress Eyes: normal inspection, EOMI Respiratory/Chest: lungs clear Cardiovascular: regular rate, rhythm Abdomen: normal bowel sounds, non tender, soft Extremities: + pertinent finding (RT leg erythema still present, wound dressing in place) Neurologic/Psychiatric: normal mood/affect, oriented x 3 Laboratory Results 06/17/17 07:00 06/17/17 07:00 Test 06/17/17 07:00 06/17/17 08:18 Red Blood Count 3.68 M/uL (4.7-6.1) Mean Corpuscular Volume 97.6 fL (80-100) Mean Corpuscular Hemoglobin 33.7 pg (25-34) Mean Corpuscular Hemoglobin Concent 34.5 g/dl (32-36) RDW Standard Deviation 45.8 fL (36.4-46.3) RDW Coefficient of Variation 13.2 % (11.5-14.5) Mean Platelet Volume 9.3 fL (7.4-10.4) Anion Gap 6.0 mmol/L (3-11) Est Creatinine Clear Calc Drug Dose 70.4 ml/min Estimated GFR () 86.2 Estimated GFR (Non- 74.3 BUN/Creatinine Ratio 8.7 (10-20) Calcium Level 9.3 mg/dl (8.5-10.1) Bedside Glucose 150 mg/dl (70-99) Assessment and Plan 71 year old male with a pMHx DMII and HTN, s/p right hip arthroplasty presenting with SBO and right lower extremity cellulitis SBO - gen surgery consulted, recs appreciated. CT a/p: small bowel obstruction - transition point identified in left ventral abdomen with mild mucosal thickening No pneumatosis intestinalis, intraperitoneal free air, or portal venous gas. KUB: Moderate colonic fecal retention is identified. An enteric tube is coiled above the diaphragm in the distal esophagus. - tolerating clears - follow and advance as tolerated - IVF NSS @ 100cc/h - Pain control with tylenol - Zofran PRN nausea Right lower extremity cellulitis secondary to ulceration - Foot XR: Soft tissue edema. Degenerative change. No acute process. - Switched to PO Cipro and Doxy for empiric coverage - Wound care consult on board DMII - Insulin ISS and BSG ac/hs HTN/ HLD - PO meds: ASA, metoprolol and rosuvastatin held - IV Hydralazine 5mg q6h for SBP > 180 DVT prophy SCD Full Code Resident Physician Supervision Note: I interviewed and examined the patient. Discussed with Dr. Garrett and agree with findings and plan as documented in the note. Any exceptions or clarifications are listed here: None Documented By: Arthur Arriola feeling better slwoly advancing diet vitlas noted nad breathing unlabored abd mod distended but soft nt no guarding/ rebound SBO - improving leg cellulitis - agree w change to PO abx, outpt f/u hopefully home tomorrow Continued [facility] stay due to: ambulation difficulties, other Discharge planning: home Resident Tracking Resident Involvement: Resident Care Provided Care Provided: Adult Hospital Medicine
--- NOTE | 2017-06-17 10:56 | Surgery Progress Note ---
Surgery Progress Note Date of Service Jun 17, 2017. Subjective + bowel movement (large this AM), + flatus (large amount), + diet (tolerated clear lquids) Feels better Denies abdominal pain Objective Vital Signs: Date Time Temp Pulse Resp B/P (MAP) Pulse Ox O2 Delivery O2 Flow Rate FiO2 06/17/17 07:30 36.7 73 17 139/80 (99) 93 Nasal Cannula 5.0 06/16/17 23:29 36.5 70 16 129/78 (95) 97 Room Air 06/16/17 23:10 Room Air 06/16/17 16:00 36.5 73 16 123/79 (94) 98 Room Air 06/16/17 15:40 Room Air Abdomen: normal bowel sounds, non distended, soft, + tenderness (much less today) Laboratory Results: Results Past 24 Hours Test 06/16/17 12:06 06/16/17 17:20 06/16/17 20:54 06/17/17 07:00 Range/Units Bedside Glucose 180 119 134 70-99 mg/dl White Blood Count 7.02 4.8-10.8 K/uL Red Blood Count 3.68 4.7-6.1 M/uL Hemoglobin 12.4 14.0-18.0 g/dL Hematocrit 35.9 42-52 % Mean Corpuscular Volume 97.6 80-100 fL Mean Corpuscular Hemoglobin 33.7 25-34 pg Mean Corpuscular Hemoglobin Concent 34.5 32-36 g/dl RDW Standard Deviation 45.8 36.4-46.3 fL RDW Coefficient of Variation 13.2 11.5-14.5 % Platelet Count 266 130-400 K/uL Mean Platelet Volume 9.3 7.4-10.4 fL Sodium Level 139 136-145 mmol/L Potassium Level 3.6 3.5-5.1 mmol/L Chloride Level 106 98-107 mmol/L Carbon Dioxide Level 27 21-32 mmol/L Anion Gap 6.0 3-11 mmol/L Blood Urea Nitrogen 9 7-18 mg/dl Creatinine 1.00 0.60-1.40 mg/dl Est Creatinine Clear Calc Drug Dose 70.4 ml/min Estimated GFR () 86.2 Estimated GFR (Non- 74.3 BUN/Creatinine Ratio 8.7 10-20 Random Glucose 142 70-99 mg/dl Calcium Level 9.3 8.5-10.1 mg/dl Test 06/17/17 08:18 Range/Units Bedside Glucose 150 70-99 mg/dl Assessment & Plan SBO resolving Having bm's and passing flatus Advance to full liquid diet
[2017-06-17] MEDS: SODIUM CHLORIDE 0.45% 1000ML 1,000 ML IV SCH (10:57)
[2017-06-17 15:11] VITALS: BP 132/84; PULSE 72; TEMP 36.3; O2SAT 98
[2017-06-17] MEDS: ACETAMINOPHEN 325 MG TAB PO PRN (15:43)
[2017-06-17] MEDS: DOXYCYCLINE HYCLATE 100 MG CAP PO SCH (20:38)
[2017-06-17] MEDS: CIPROFLOXACIN 500 MG TAB PO SCH (20:38)
[2017-06-17 23:02] VITALS: BP 136/86; PULSE 70; TEMP 36.5; O2SAT 98
[2017-06-18 00:23] VITALS: O2SAT 98
[2017-06-18] MEDS: ACETAMINOPHEN 325 MG TAB PO PRN ×2 (00:53→09:45)
--- NOTE | 2017-06-18 06:37 | Family Medicine Progress Note ---
Progress Note Date of Service Jun 18, 2017.
[2017-06-18 07:00] LABS: CREATININE 0.9 mg/dl (0.60-1.40)
[2017-06-18 07:05] VITALS: BP 142/89; PULSE 78; TEMP 36.6; O2SAT 95
--- NOTE | 2017-06-18 07:41 | Clinical Documentation Query ---
REGINA Verduzco : CLINICAL DOCUMENTATION QUERY Patient is a 71 year old male admitted for treatment of a SBO. Documentation includes "Right lower extremity cellulitis secondary to ulceration ". WOCN consulted, foot radiograph obtained. On oral Ciprofloxacin and Doxycycline. 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 Wound is covered with Xeroform and to have daily dressing changes. Please explicitly specify (minimally) the etiology of the wound or consider documentation as suggested below for additional detail. In your clinical opinion is this patient being managed for: ( ) Traumatic partial thickness right dorsal foot wound ( ) Not Agree ( ) Other explanation of clinical findings (Please Explain) ( ) Unable to determine (Please Define) ( ) Need to Discuss The medical record reflects the following clinical findings, treatment, and risk factors. Clinical Indicators: As above Treatment:WOCN consulted, foot radiograph obtained. On oral Ciprofloxacin and Doxycycline. Xeroform dressing Risk Factors: Recent fall Please clarify and document your clinical opinion in the progress notes and discharge summary. Terms such as "probable", "suspected", "likely", "questionable", "possible", or "still to be ruled out" are acceptable. IF IN AGREEMENT, YOU MUST DOCUMENT ABOVE DIAGNOSTIC STATEMENT IN DAILY PROGRESS NOTES AND DISCHARGE SUMMARY. This document is not part of the patient's record. Thank You, David Samuel RN [phone]
[2017-06-18] MEDS: INSULIN ASPART 100 UNITS/ML 3 ML PEN SC SCH ×2 (08:00→12:00)
[2017-06-18] MEDS: CIPROFLOXACIN 500 MG TAB PO SCH (08:26)
[2017-06-18] MEDS: DOXYCYCLINE HYCLATE 100 MG CAP PO SCH (08:26)
--- NOTE | 2017-06-18 08:41 | Surgery Progress Note ---
Surgery Progress Note Date of Service Jun 18, 2017. Subjective + feeling well, + bowel movement, + diet (regular dinner and breakfast), No nausea Objective Vital Signs: Date Time Temp Pulse Resp B/P (MAP) Pulse Ox O2 Delivery O2 Flow Rate FiO2 06/18/17 07:05 36.6 78 19 142/89 (106) 95 Room Air 06/18/17 00:23 98 Room Air 06/17/17 23:02 36.5 70 14 136/86 (103) 98 Room Air 06/17/17 15:45 Room Air 06/17/17 15:11 36.3 72 16 132/84 (100) 98 Room Air Abdomen: non tender, non distended, soft Laboratory Results: Results Past 24 Hours Test 06/17/17 12:22 06/17/17 17:07 06/17/17 20:33 06/18/17 06:03 Range/Units Bedside Glucose 139 120 136 70-99 mg/dl Creatinine 0.90 0.60-1.40 mg/dl Est Creatinine Clear Calc Drug Dose 78.2 ml/min Estimated GFR () 97.9 Estimated GFR (Non- 84.4 Assessment & Plan SBO resolved tolerating diet dispo per primary, will sign off
--- NOTE | 2017-06-18 10:39 | Clinical Documentation Query ---
Dr. Kumar, CLINICAL DOCUMENTATION QUERY Patient is a 71 year old male admitted for treatment of a SBO. Documentation includes "Right lower extremity cellulitis secondary to ulceration ". WOCN consulted, foot radiograph obtained. On oral Ciprofloxacin and Doxycycline. 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 Wound is covered with Xeroform and to have daily dressing changes. Please explicitly specify (minimally) the etiology of the wound or consider documentation as suggested below for additional detail. In your clinical opinion is this patient being managed for: ( ) Traumatic partial thickness right dorsal foot wound ( ) Not Agree ( ) Other explanation of clinical findings (Please Explain) ( ) Unable to determine (Please Define) ( ) Need to Discuss The medical record reflects the following clinical findings, treatment, and risk factors. Clinical Indicators: As above Treatment:WOCN consulted, foot radiograph obtained. On oral Ciprofloxacin and Doxycycline. Xeroform dressing Risk Factors: Recent fall Please clarify and document your clinical opinion in the progress notes and discharge summary. Terms such as "probable", "suspected", "likely", "questionable", "possible", or "still to be ruled out" are acceptable. IF IN AGREEMENT, YOU MUST DOCUMENT ABOVE DIAGNOSTIC STATEMENT IN DAILY PROGRESS NOTES AND DISCHARGE SUMMARY. This document is not part of the patient's record.
--- NOTE | 2017-06-18 10:54 | Discharge Instructions ---
Discharge Instructions Date of Service Jun 18, 2017. Admission Reason for Admission: Small Bowel Obstruction Discharge Discharge Diagnosis / Problem: Small bowel obstruction / Cellulitis Discharge Goals Goal(s): Improve function, Improve disease control Activity Recommendations Activity Limitations: per Instructions/Follow-up section . Instructions / Follow-Up Instructions / Follow-Up You had a CT scan of your abdomen which showed that you had a small bowel obstruction. This has resolved and you have been able to keep down food. You will need to follow up with your PCP in the next 3-5 days. For your leg infection we will be treating you with antibiotics to finish a 10 day course. We will be sending the prescription to the pharmacy. You will need to keep the area dry and follow up with your PCP and wound care centre to ensure resolution of the infection. Please return to the emergency department if you have any worsening abdominal pain, vomiting, diarrhea or fevers/chills Current Hospital Diet Patient's current hospital diet: Diabetes Type 2 Diet, Low Fiber Diet Discharge Diet Recommended Diet: Diabetes Type 2 Diet Pending Studies Studies pending at discharge: no Laboratory Results Hemoglobin A1c Test 05/26/17 05:06 Range/Units Estimated Average Glucose 137 mg/dl Hemoglobin A1c 6.4 H 4.5-5.6 % Medical Emergencies . Who to Call and When: Medical Emergencies: If at any time you feel your situation is an emergency, please call 911 immediately. . Non-Emergent Contact Non-Emergency issues call your: Primary Care Provider . . "Provider Documentation" section prepared by Paddy Eubanks. . VTE Core Measure Inpt VTE Proph given/why not?: SCD's
--- NOTE | 2017-06-18 11:54 | Discharge Summary ---
Discharge Summary Date of Service Jun 18, 2017. Discharge Summary Admission Date: Jun 15, 2017 at 04:09 Discharge Date: Jun 17, 2017 Discharge Disposition: Home Principal Diagnosis: Small bowel obstruction Immunizations: Have You Had Influenza Vaccine: No History of Tetanus Vaccine?: Yes History of Pneumococcal: Yes History of Hepatitis B Vaccine: No Consultations: Surgery Medication Reconciliation Continued Medications: Albuterol Sulfate (Proair Respiclick) 108 Mcg/Act Aer 2 PUFF INH Q4 PRN for SOB/Wheezing Aspirin (Aspirin Ec) 325 Mg Tab 325 MG PO BID Metformin HCl (Metformin HCl) 500 Mg Tab 500 MG PO BID, #90 Metoprolol Tartrate (Lopressor) (Lopressor) 25 Mg Tab 12.5 MG PO BID, TAB Oxycodone Hcl (Oxycodone Hcl) 5 Mg Cap 5-10 MG PO Q4 for Pain for 30 Days, CAP Pantoprazole (Protonix) 40 Mg Tab 40 MG PO Q2D, TAB Rosuvastatin Calcium (Rosuvastatin Calcium) 10 Mg Tab 10 MG PO QAM Discharge Exam Patient feeling much better Tolerating PO diet Had a bowel movement this morning and is passing gas Denies any abdominal pain, nausea or vomiting Review of Systems: Constitutional: No fever, No chills, No sweats Respiratory: No cough, No sputum, No wheezing, No dyspnea on exertion Cardiovascular: No chest pain, No claudication, No palpitations Abdomen: No pain, No nausea, No vomiting, No GI bleeding Musculoskeletal: No joint pain, No muscle pain, No swelling Physical Exam: General Appearance: WD/WN, no apparent distress Neck: supple, no JVD, trachea midline Respiratory/Chest: lungs clear, no respiratory distress, no accessory muscle use Cardiovascular: regular rate, rhythm, no murmur, normal peripheral pulses Abdomen / GI: normal bowel sounds, soft, + tenderness (very mild diffuse tenderness) Extremities: + pedal edema (+1 to the midshin), + pertinent finding (R foot w/bandage covering wound) Neurologic/Psychiatric: alert, normal mood/affect, oriented x 3 Hospital Course 71 year old male with a pMHx DMII and HTN, s/p right hip arthroplasty presenting with SBO and right lower extremity cellulitis SBO - gen surgery consulted - CT a/p: small bowel obstruction - transition point identified in left ventral abdomen with mild mucosal thickening No pneumatosis intestinalis, intraperitoneal free air, or portal venous gas. KUB: Moderate colonic fecal retention is identified. An enteric tube is coiled above the diaphragm in the distal esophagus. - Diet advanced upon discharge - Pain control with tylenol Right lower extremity cellulitis secondary to ulceration - Foot XR: Soft tissue edema. Degenerative change. No acute process. - Switched to PO Cipro and Doxy for empiric coverage and discharged on 10 day course - Wound care consult on board - Follow up with wound care and PCP upon discharge DMII - Insulin ISS and BSG ac/hs HTN/ HLD - PO meds: ASA, metoprolol and rosuvastatin continue upon discharge DVT prophy - SCD's Total Time Spent: Less than 30 minutes This includes examination of the patient, discharge planning, medication reconciliation, and communication with other providers. Discharge Instructions Please refer to the electronic Patient Visit Report (Discharge Instructions) for additional information. Additional Copies To Nakia Louise M.D. History Resident Physician Supervision Note: I was present with Dr. Eubanks during the history and exam. I discussed the case with the resident and agree with the findings and plan as documented in the note. Any exceptions or clarifications are listed here. Pt resting comfortably in bed without complaint and with good appetite. Passing flatus and good BM this Am. Improved RLE cellulitis without pain. General Appearance: WD/WN, no apparent distress Respiratory: chest non-tender, lungs clear, normal breath sounds, no respiratory distress Cardiovascular: normal peripheral pulses, regular rate, rhythm, no murmur Gastrointestinal: normal bowel sounds, non tender, soft, no organomegaly Extremities: other (resolving distal erythema and 1+ edema of the RLE) Assessment/Plan 71 y/o male h/o HTN, DMII, R hip arthroplasty p/w SBO and cellulitis SBO - tolerating full diet without symptoms RLE cellulitis - wound care follow up appreciated - improving, complete course of cipro/doxy DMII - return to home regimen HTN/HLD - stable, continue home meds
[2017-06-18] MEDS ORDERED: DXY100 PO (11:56)
[2017-06-18] MEDS ORDERED: CPR500 PO (11:56)
[2017-06-18 13:33] VITALS: BP 142/89; PULSE 78; TEMP 36.6; O2SAT 95
== END 2017-06-18 14:38 | disposition home or self-care (01) | DRG 389 ==
LOC: C.EDB 01:22 → C.MSN 04:09 → EDBEDREQ 04:13 → ENRESERV 04:36
PROVIDERS: ADMIT Hospitalist; ATTEND Family Medicine
DX: K56.609 Unspecified intestinal obstruction, unspecified as to partial versus complete obstruction (principal); L03.115 Cellulitis of right lower limb; L97.909 Non-pressure chronic ulcer of unspecified part of unspecified lower leg with unspecified severity; Z80.0 Family history of malignant neoplasm of digestive organs; Z82.49 Family history of ischemic heart disease and other diseases of the circulatory system; Z82.3 Family history of stroke; Z79.82 Long term (current) use of aspirin; I10 Essential (primary) hypertension; E78.5 Hyperlipidemia, unspecified; E11.9 Type 2 diabetes mellitus without complications; Z96.641 Presence of right artificial hip joint

== ENCOUNTER → 2017-08-17 | Outpatient (CLI) | payer OTHER ==
[~2017-08-17] MED LIST changes: -ASPEC325 PO; +ASPI325T39 PO; +CPR500 PO; +DXY100 PO; +OXYC1CAP5 PO; -RXC5 PO
[2017-08-17 13:10] LABS: HEMOGLOBIN A1C 6.7 % (4.5-5.6)
[2017-08-17 13:22] LABS: BLOOD UREA NITROGEN 15 mg/dl (7-18); CALCIUM 8.7 mg/dl (8.5-10.1); CARBON DIOXIDE 26 mmol/L (21-32); CREATININE 0.95 mg/dl (0.60-1.40); GLUCOSE 153 mg/dl (70-99); PHOSPHORUS 2.5 mg/dl (2.5-4.9); SODIUM 139 mmol/L (136-145)
== END | disposition home or self-care (01) ==
LOC: C.LABMFLN 18:00
PROVIDERS: ATTEND Family Medicine
DX: E11.9 Type 2 diabetes mellitus without complications (principal)

== ENCOUNTER → 2017-09-05 | Outpatient (CLI) | payer OTHER ==
[~2017-09-05] MED LIST changes: +ASPI81TA28 PO
== END | disposition home or self-care (01) ==
LOC: C.LABMFLN 11:34
PROVIDERS: ATTEND Urology
DX: N40.0 Benign prostatic hyperplasia without lower urinary tract symptoms (principal)

== ENCOUNTER 2017-09-11 16:28 | Inpatient (IN) | payer OTHER ==
[~2017-09-11] VITALS: Ht 170.2 cm; Wt 85.2 kg
[~2017-09-11 16:28] MED LIST changes: -ASPI81TA28 PO
[2017-09-11] MEDS ORDERED: ONDANSETRON INJ 2 MG/ML 2 ML VIAL IV STA (18:18)
[2017-09-11] MEDS ORDERED: MoRPHine SULFATE 4 MG/ML 1 ML CARP\\VIAL IV STA (18:18)
[2017-09-11] MEDS ORDERED: ASPI81TA28 PO (18:39)
--- NOTE | 2017-09-11 19:29 | DIAGNOSTIC IMAGING REPORT ---
CT SCAN OF THE ABDOMEN AND PELVIS WITHOUT CONTRAST CLINICAL HISTORY: Left flank pain COMPARISON STUDY: 06/15/2017 TECHNIQUE: CT scan of the abdomen and pelvis was performed from the lung bases to the proximal femurs. Images are reviewed in the axial, sagittal, and coronal planes. IV contrast was not administered for this examination. A dose lowering technique was utilized adhering to the principles of ALARA. CT DOSE: 1197.71 mGy.cm FINDINGS: Lower chest: The heart is normal in size and configuration, without pericardial effusion. The lung bases and pleural spaces are clear. Liver: There is a stable 13 mm hypodensity within the central liver. Gallbladder: Surgically absent Spleen: Normal in size and attenuation. Pancreas: Unremarkable. Adrenal glands: Unremarkable. Kidneys: No renal, ureteral, or bladder calculi are visualized. Bowel: There are mildly dilated proximal small bowel loops, with normal caliber distal small bowel. The findings are again consistent with a small bowel obstruction. There is no acute diverticulitis. There are no findings to indicate acute appendicitis. Peritoneum: There is no intraperitoneal free air or abdominal ascites. Vasculature: The abdominal aorta is normal in course and caliber. Adenopathy: None. Pelvic viscera: The prostate is mildly enlarged. Skeletal structures: There are postsurgical changes of a prior total right hip arthroplasty. IMPRESSION: 1. Small bowel obstructive pattern similar to the prior May 2017 examination 2. No evidence of free intraperitoneal air. No evidence of pneumatosis. No evidence of portal venous gas. Minimal mesenteric edema at the transition zone within the mid ventral abdomen. 3. No renal, ureteral, or bladder calculi identified Electronically signed by: Noel Lawson M.D. 09/11/2017 7:28 PM Dictated Date/Time: 09/11/2017 7:21 PM
[2017-09-11 20:01] LABS: BASO % 0.3 %; BASO ABS # 0.04 K/uL (0-0.2); EOS ABS # 0.27 K/uL (0-0.5); HEMOGLOBIN 15.9 g/dL (14.0-18.0); IG# 0.08 K/uL (0.00-0.02); LYMPH % 26.1 %; LYMPH ABS # 3.56 K/uL (1.2-3.4); MEAN CELL VOLUME 93.2 fL (80-100); MEAN CORPUSCULAR HEMOGLOBIN 33.7 pg (25-34); MEAN CORPUSCULAR HGB CONC 36.1 g/dl (32-36); MEAN PLATELET VOLUME 10.1 fL (7.4-10.4); MONO % 7.6 %; MONO ABS # 1.04 K/uL (0.11-0.59); NEUT % 63.4 %; NEUT ABS # 8.66 K/uL (1.4-6.5); PLATELET COUNT 188 K/uL (130-400); RED CELL DISTRIBUTION WIDTH CV 13.4 % (11.5-14.5); RED CELL DISTRIBUTION WIDTH SD 45.4 fL (36.4-46.3); WHITE BLOOD COUNT 13.65 K/uL (4.8-10.8)
[2017-09-11 20:11] LABS: ALBUMIN 3.9 gm/dl (3.4-5.0); CALCIUM 9.2 mg/dl (8.5-10.1); CREATININE 1.05 mg/dl (0.60-1.40); POTASSIUM 4.2 mmol/L (3.5-5.1)
[2017-09-11 20:13] LABS: TOTAL PROTEIN 7.3 gm/dl (6.4-8.2)
[2017-09-11] MEDS ORDERED: HYDROmorphone INJ 0.5 MG/0.5 ML SYR IV PRN (20:45)
--- NOTE | 2017-09-11 20:46 | History and Physical ---
History & Physical Date & Time of Service: Sep 11, 2017 at 20:31 Chief Complaint: Stomach Pain Primary Care Physician: Nakia Louise M.D. History of Present Illness Source: patient, hospital records 71 y/o M Hx HTN, HPL, DM II - history of partial colectomy, recent SBO 06/17/17 which was medically managed. Presents with progressive diffuse abdominal pain and nausea. A CT was obtained on arrival to the ER confirming recurrence of an SBO with the same transition point at the mid ventral abdomen. He denies vomiting, fevers or rigors. Had a small BM earlier in the day and he managed to eat some lunch at 2pm. Past Medical/Surgical History 1) HTN 2) HLD 3) DM II 4) SBO 05/2017 - medically managed - recurrence 08/2017 Surgical: 1) Disectomy 2) Right hip arthroplasty 3) Partial colectomy due to diverticulitis 2013 4) Cholecystectomy Family History Abdominal aortic aneurysm (AAA) Colon cancer Coronary artery disease Stroke Social History Smoking Status: Never Smoker Drug Use: none Marital Status: Housing status: lives with family Occupational Status: retired Immunizations History of Influenza Vaccine: No History of Tetanus Vaccine?: Yes History of Pneumococcal: Yes History of Hepatitis B Vaccine: No Allergies Coded Allergies: NSAIDs (Verified Adverse Reaction, Mild, UPSET STOMACH/ABDOMINAL PAINS, ) Prednisone (Verified Adverse Reaction, Mild, GI UPSET, ABDOMINAL CRAMPING , 09/11/17) Home Medications Scheduled Aspirin (Aspirin Ec), 81 MG PO HS Metformin HCl (Metformin HCl), 500 MG PO BID Metoprolol Tartrate (Lopressor) (Lopressor), 12.5 MG PO BID Oxycodone Hcl (Oxycodone Hcl), 5-10 MG PO Q4 Pantoprazole (Protonix), 40 MG PO Q2D Rosuvastatin Calcium (Rosuvastatin Calcium), 10 MG PO QAM Scheduled PRN Albuterol Sulfate (Proair Respiclick), 2 PUFF INH Q4 PRN for SOB/Wheezing Review of Systems Constitutional: No fever, No chills, No sweats Eyes: No worsening of vision ENT: No hearing loss, No unusual epistaxis, No nasal symptoms Respiratory: No cough, No sputum, No wheezing Cardiovascular: No chest pain, No orthopnea, No PND Abdomen: + pain, + nausea, No vomiting, No diarrhea Musculoskeletal: No joint pain Genitourinary - Male: No hematuria, No dysuria Neurologic: No memory loss, No paralysis, No weakness Psychiatric: No depression symptoms Endocrine: No fatigue Hematologic / Lymphatic: No abnormal bleeding/bruising Integumentary: No rash Allergic / Immunologic: No environmental allergies Physical Exam Vital Signs Date Time Temp Pulse Resp B/P (MAP) Pulse Ox O2 Delivery O2 Flow Rate FiO2 09/11/17 18:32 72 09/11/17 18:18 79 16 159/105 96 Room Air 09/11/17 16:58 36.3 81 18 148/97 97 Room Air General Appearance: WD/WN, no apparent distress Head: normocephalic Eyes: normal inspection ENT: normal ENT inspection, pharynx normal Neck: supple, no JVD Respiratory/Chest: chest non-tender, lungs clear, normal breath sounds Cardiovascular: regular rate, rhythm, no edema Abdomen/GI: + pertinent finding (Moderately distended and tender abdomen. ) Back: normal inspection, no CVA tenderness Extremities/Musculoskelatal: normal inspection, no calf tenderness, normal capillary refill Neurologic/Psych: rug dyer helper II-XII nml as tested, no motor/sensory deficits, alert, oriented x 3 Skin: normal color, warm/dry, no rash Diagnostics Laboratory Results Results Past 24 Hours Test 09/11/17 18:30 09/11/17 19:24 Range/Units Urine Color YELLOW Urine Appearance CLEAR CLEAR Urine pH 6.0 4.5-7.5 Urine Specific [place] 1.026 1.000-1.030 Urine Protein NEG NEG Urine Glucose (UA) NEG NEG Urine Ketones NEG NEG Urine Occult Blood NEG NEG Urine Nitrite NEG NEG Urine Bilirubin NEG NEG Urine Urobilinogen NEG NEG Urine Leukocyte Esterase NEG NEG White Blood Count 13.65 4.8-10.8 K/uL Red Blood Count 4.72 4.7-6.1 M/uL Hemoglobin 15.9 14.0-18.0 g/dL Hematocrit 44.0 42-52 % Mean Corpuscular Volume 93.2 80-100 fL Mean Corpuscular Hemoglobin 33.7 25-34 pg Mean Corpuscular Hemoglobin Concent 36.1 32-36 g/dl Platelet Count 188 130-400 K/uL Mean Platelet Volume 10.1 7.4-10.4 fL Neutrophils (%) (Auto) 63.4 % Lymphocytes (%) (Auto) 26.1 % Monocytes (%) (Auto) 7.6 % Eosinophils (%) (Auto) 2.0 % Basophils (%) (Auto) 0.3 % Neutrophils # (Auto) 8.66 1.4-6.5 K/uL Lymphocytes # (Auto) 3.56 1.2-3.4 K/uL Monocytes # (Auto) 1.04 0.11-0.59 K/uL Eosinophils # (Auto) 0.27 0-0.5 K/uL Basophils # (Auto) 0.04 0-0.2 K/uL RDW Standard Deviation 45.4 36.4-46.3 fL RDW Coefficient of Variation 13.4 11.5-14.5 % Immature Granulocyte % (Auto) 0.6 % Immature Granulocyte # (Auto) 0.08 0.00-0.02 K/uL Sodium Level 136 136-145 mmol/L Potassium Level 4.2 3.5-5.1 mmol/L Chloride Level 104 98-107 mmol/L Carbon Dioxide Level 27 21-32 mmol/L Anion Gap 5.0 3-11 mmol/L Blood Urea Nitrogen 17 7-18 mg/dl Creatinine 1.05 0.60-1.40 mg/dl Est Creatinine Clear Calc Drug Dose 66.6 ml/min Estimated GFR () 81.2 Estimated GFR (Non- 70.1 BUN/Creatinine Ratio 15.9 10-20 Random Glucose 159 70-99 mg/dl Calcium Level 9.2 8.5-10.1 mg/dl Total Bilirubin 1.2 0.2-1 mg/dl Direct Bilirubin 0.2 0-0.2 mg/dl Aspartate Amino Transf (AST/SGOT) 22 15-37 U/L Alanine Aminotransferase (ALT/SGPT) 49 12-78 U/L Alkaline Phosphatase 112 45-117 U/L Total Protein 7.3 6.4-8.2 gm/dl Albumin 3.9 3.4-5.0 gm/dl Lipase 167 73-393 U/L Diagnostic Radiology CT abdomen: 1. Small bowel obstructive pattern similar to the prior May 2017 examination 2. No evidence of free intraperitoneal air. No evidence of pneumatosis. No evidence of portal venous gas. Minimal mesenteric edema at the transition zone within the mid ventral abdomen. 3. No renal, ureteral, or bladder calculi identified Impression Assessment and Plan 71 y/o M Hx HTN, HPL, DM II - history of partial colectomy, recent SBO 06/17/17 which was medically managed. Presents with progressive diffuse abdominal pain and nausea. A CT was obtained on arrival to the ER confirming recurrence of an SBO with the same transition point at the mid ventral abdomen. He denies vomiting, fevers or rigors. Had a small BM earlier in the day and he managed to eat some lunch at 2pm. 1) Recurrence of SBO - NGT placed - NPO, IVF, antiemetics, analgesics provided - will consult surgery due to recurrence. 2) DM - placed on SS 3) HTN - Can provide IV sub for Lopressor as needed 4) HPL - Hold Crestor until tolerating PO Full code - Heparin prophylaxis Total time foe this admit including review of labs, meds, imaging, records - discussion with pt and ER attending - 36 min. Resuscitation Status VTE Prophylaxis Will order VTE Prophylaxis: Yes
[2017-09-11 20:59] VITALS: BMI 30.7
[2017-09-11 21:36] VITALS: BP 147/98; PULSE 70; TEMP 36.2; O2SAT 94
[2017-09-11] MEDS: SODIUM CHLORIDE 0.9% 1000ML 1,000 ML IV SCH (21:53)
[2017-09-11 22:51] VITALS: BP 149/94; PULSE 69; TEMP 36.4; O2SAT 93
[2017-09-11] MEDS ORDERED: HydrALAZINE HCL 20 MG/ML VIAL IV. PRN (23:00)
[2017-09-11] MEDS ORDERED: GLUCOSE 10 TABS/TUBE PO PRN (23:15)
[2017-09-11] MEDS ORDERED: GLUCAGON FOR INJ 1 MG VIAL SQ PRN (23:15)
[2017-09-11] MEDS ORDERED: GLUCOSE 40% GEL 15 GM TUBE PO PRN (23:15)
[2017-09-11] MEDS ORDERED: DEXTROSE 50% 50 ML SYR IV PRN (23:15)
[2017-09-11] MEDS ORDERED: HYDROmorphone INJ 0.5 MG/0.5 ML SYR IV STA (23:35)
--- NOTE | 2017-09-11 23:51 | EMERGENCY ROOM VISIT NOTE ---
History Report prepared by Eran: Jamshid Junior Under the Supervision of: Dr. Jacek Fraga M.D. First contact with patient: 18:06 Chief Complaint: ABDOMINAL PAIN Stated Complaint: STOMACH PAIN Nursing Triage Summary: Patient with c/o abdominal pain wrapping all the way around abdomen since this after noon. History of bowel obstruction . Denies N/V/D Patient also states his right hip is not healing correctly and in alot of pain. Surgery in May. History of Present Illness The patient is a 71 year old male who presents to the Emergency Room with complaints of waxing and waning abdominal pain that started around 4 hours ago. He states that the pain is mainly on the left side, and wraps around on both sides to his back. The patient states that he had a small bowel obstruction in May, and his current pain feels very similar to when he had the obstruction. He adds that his abdomen feels like it is getting bigger. He notes that the pain gets "horrible when it hits". The patient states that he last had a bowel movement this afternoon when the pain was very light. He says that the bowel movement was very small, but he denies any black or bloody stools. The patient states that his bowel movements have been relatively normal recently. He denies any nausea, vomiting, fevers, or urinary symptoms. The patient notes no history of kidney stones. He adds that he had a right hip replacement done by Dr. Prieto in May, but he has been having right hip pain recently. The patient saw Dr. Prieto on the and had an injection, but he notes that the pain is getting worse, and he will follow-up with Dr. Prieto. Source of History: patient Onset: 4 hours ago Position: abdomen Symptom Intensity: "horrible when it hits" Timing: waxes/wanes Associated Symptoms: + back pain, No fevers, No nausea, No vomiting, No melena, No hematochezia, No urinary symptoms Note: Associated symptoms: Abdomen feels like it is getting bigger. Review of Systems See HPI for pertinent positives & negatives. A total of 10 systems reviewed and were otherwise negative. Past Medical & Surgical Medical Problems: (1) Cholecystitis (2) Degenerative disc disease, lumbar (3) Diabetes (4) Diverticulitis (5) HLD (hyperlipidemia) (6) HTN (hypertension) (7) Osteoarthritis of right hip (8) SBO (small bowel obstruction) (9) Small bowel obstruction Surgical Problems: (1) History of partial colectomy (2) History of right hip replacement (3) S/P colon resection Family History Abdominal aortic aneurysm (AAA) Colon cancer Coronary artery disease Stroke Social History Smoking Status: Never Smoker Drug Use: none Marital Status: Housing Status: lives with family Occupation Status: retired Current/Historical Medications Scheduled Aspirin (Aspirin Ec), 81 MG PO HS Metformin HCl (Metformin HCl), 500 MG PO BID Metoprolol Tartrate (Lopressor) (Lopressor), 12.5 MG PO BID Oxycodone Hcl (Oxycodone Hcl), 5-10 MG PO Q4 Pantoprazole (Protonix), 40 MG PO Q2D Rosuvastatin Calcium (Rosuvastatin Calcium), 10 MG PO QAM Scheduled PRN Albuterol Sulfate (Proair Respiclick), 2 PUFF INH Q4 PRN for SOB/Wheezing Allergies Coded Allergies: NSAIDs (Verified Adverse Reaction, Mild, UPSET STOMACH/ABDOMINAL PAINS, ) Prednisone (Verified Adverse Reaction, Mild, GI UPSET, ABDOMINAL CRAMPING , 09/11/17) Physical Exam Vital Signs Date Time Temp Pulse Resp B/P (MAP) Pulse Ox O2 Delivery O2 Flow Rate FiO2 09/11/17 18:32 72 09/11/17 18:18 79 16 159/105 96 Room Air 09/11/17 16:58 36.3 81 18 148/97 97 Room Air Physical Exam Constitutional: Vital signs reviewed. Eyes: Pupils are equal round reactive to light. Conjunctiva are noninjected. ENT: Pharynx is clear without erythema or exudate. Mucous membranes are moist. Neck supple without meningeal signs. Respiratory: Clear to auscultation bilaterally. Breath sounds are equal bilaterally. Cardiovascular: Regular rate and rhythm. No rubs or gallops. GI: Distended abdomen. Tender to the left upper quadrant. Bowel sounds are present. Musculoskeletal: No peripheral edema. No lower extremity tenderness. No erythema or swelling to the right hip. No appreciable tenderness, scar is intact. Integumentary: No cyanosis. Neurological: The patient is awake and alert. No focal deficits. Psychiatric: Normal affect. Medical Decision & Procedures ER Provider Diagnostic Interpretation: CT results as stated below per my review and radiologist interpretation. CT SCAN OF THE ABDOMEN AND PELVIS WITHOUT CONTRAST CLINICAL HISTORY: Left flank pain COMPARISON STUDY: 06/15/2017 TECHNIQUE: CT scan of the abdomen and pelvis was performed from the lung bases to the proximal femurs. Images are reviewed in the axial, sagittal, and coronal planes. IV contrast was not administered for this examination. A dose lowering technique was utilized adhering to the principles of ALARA. CT DOSE: 1197.71 mGy.cm FINDINGS: Lower chest: The heart is normal in size and configuration, without pericardial effusion. The lung bases and pleural spaces are clear. Liver: There is a stable 13 mm hypodensity within the central liver. Gallbladder: Surgically absent Spleen: Normal in size and attenuation. Pancreas: Unremarkable. Adrenal glands: Unremarkable. Kidneys: No renal, ureteral, or bladder calculi are visualized. Bowel: There are mildly dilated proximal small bowel loops, with normal caliber distal small bowel. The findings are again consistent with a small bowel obstruction. There is no acute diverticulitis. There are no findings to indicate acute appendicitis. Peritoneum: There is no intraperitoneal free air or abdominal ascites. Vasculature: The abdominal aorta is normal in course and caliber. Adenopathy: None. Pelvic viscera: The prostate is mildly enlarged. Skeletal structures: There are postsurgical changes of a prior total right hip arthroplasty. IMPRESSION: 1. Small bowel obstructive pattern similar to the prior May 2017 examination 2. No evidence of free intraperitoneal air. No evidence of pneumatosis. No evidence of portal venous gas. Minimal mesenteric edema at the transition zone within the mid ventral abdomen. 3. No renal, ureteral, or bladder calculi identified Electronically signed by: Noel Lawson M.D. 09/11/2017 7:28 PM Dictated Date/Time: 09/11/2017 7:21 PM Laboratory Results 09/11/17 19:24 Red Blood Count 4.72, Mean Corpuscular Volume 93.2, Mean Corpuscular Hemoglobin 33.7, Mean Corpuscular Hemoglobin Concent 36.1, Mean Platelet Volume 10.1, Neutrophils (%) (Auto) 63.4, Lymphocytes (%) (Auto) 26.1, Monocytes (%) (Auto) 7.6, Eosinophils (%) (Auto) 2.0, Basophils (%) (Auto) 0.3, Neutrophils # (Auto) 8.66, Lymphocytes # (Auto) 3.56, Monocytes # (Auto) 1.04, Eosinophils # (Auto) 0.27, Basophils # (Auto) 0.04 09/11/17 19:24 Test 09/11/17 18:30 09/11/17 19:24 Urine Color YELLOW Urine Appearance CLEAR (CLEAR) Urine pH 6.0 (4.5-7.5) Urine Specific [place] 1.026 (1.000-1.030) Urine Protein NEG (NEG) Urine Glucose (UA) NEG (NEG) Urine Ketones NEG (NEG) Urine Occult Blood NEG (NEG) Urine Nitrite NEG (NEG) Urine Bilirubin NEG (NEG) Urine Urobilinogen NEG (NEG) Urine Leukocyte Esterase NEG (NEG) White Blood Count 13.65 K/uL (4.8-10.8) Red Blood Count 4.72 M/uL (4.7-6.1) Hemoglobin 15.9 g/dL (14.0-18.0) Hematocrit 44.0 % (42-52) Mean Corpuscular Volume 93.2 fL (80-100) Mean Corpuscular Hemoglobin 33.7 pg (25-34) Mean Corpuscular Hemoglobin Concent 36.1 g/dl (32-36) Platelet Count 188 K/uL (130-400) Mean Platelet Volume 10.1 fL (7.4-10.4) Neutrophils (%) (Auto) 63.4 % Lymphocytes (%) (Auto) 26.1 % Monocytes (%) (Auto) 7.6 % Eosinophils (%) (Auto) 2.0 % Basophils (%) (Auto) 0.3 % Neutrophils # (Auto) 8.66 K/uL (1.4-6.5) Lymphocytes # (Auto) 3.56 K/uL (1.2-3.4) Monocytes # (Auto) 1.04 K/uL (0.11-0.59) Eosinophils # (Auto) 0.27 K/uL (0-0.5) Basophils # (Auto) 0.04 K/uL (0-0.2) RDW Standard Deviation 45.4 fL (36.4-46.3) RDW Coefficient of Variation 13.4 % (11.5-14.5) Immature Granulocyte % (Auto) 0.6 % Immature Granulocyte # (Auto) 0.08 K/uL (0.00-0.02) Anion Gap 5.0 mmol/L (3-11) Est Creatinine Clear Calc Drug Dose 66.6 ml/min Estimated GFR () 81.2 Estimated GFR (Non- 70.1 BUN/Creatinine Ratio 15.9 (10-20) Calcium Level 9.2 mg/dl (8.5-10.1) Total Bilirubin 1.2 mg/dl (0.2-1) Direct Bilirubin 0.2 mg/dl (0-0.2) Aspartate Amino Transf (AST/SGOT) 22 U/L (15-37) Alanine Aminotransferase (ALT/SGPT) 49 U/L (12-78) Alkaline Phosphatase 112 U/L (45-117) Total Protein 7.3 gm/dl (6.4-8.2) Albumin 3.9 gm/dl (3.4-5.0) Lipase 167 U/L (73-393) Laboratory results as reviewed by me. Medications Administered Medications (Trade) Dose Ordered Sig/[facility] Route Start Time Stop Time Status Last Admin Dose Admin Ondansetron HCl (Zofran Inj) 4 mg NOW STAT IV 09/11/17 18:18 09/11/17 18:19 DC 09/11/17 18:55 4 MG Morphine Sulfate (MoRPHine SULFATE INJ) 4 mg NOW STAT IV 09/11/17 18:18 09/11/17 18:19 DC 09/11/17 18:55 4 MG Hydromorphone HCl (Dilaudid Inj) 0.5 mg Q3H PRN IV 09/11/17 20:45 09/11/17 23:36 DC 09/11/17 21:53 0.5 MG Sodium Chloride 1,000 ml @ 125 mls/hr Q8H IV 09/11/17 20:45 09/12/17 12:44 09/11/17 21:53 125 MLS/HR ED Course 1807: The patient was evaluated in room A8. A complete history and physical exam was performed. 1817: Morphine Sulfate Inj 4 mg IV, Zofran Inj 4 mg IV. 1935: I reevaluated the patient and discussed the test results with him. He is feeling better. He expresses understanding and agreement of the treatment plan. The patient will be evaluated for further treatment. 2001: I spoke with Dr. Reno of [facility] [place] [facility]. We discussed the patient and his results. The patient will be further evaluated by Dr. Reno. 2005: I discussed the [facility]. Medical Decision This is a 71-year-old male presents with abdominal pain. Differential diagnosis includes small bowel obstruction, ileus, partial obstruction, pancreatitis, colitis, mass. I did perform a limited focused review of portions of the patient's old chart on the electronic medical record. The patient was admitted in May for a small bowel obstruction. He also had a total right hip done in May by Dr. Prieto. I did evaluate the patient as noted above. IV access was established. I did treat the patient with IV morphine and Zofran. I did order and personally review the patient's urine analysis as described above. I did order and review the patient's blood work as noted in the electronic medical record. His white count is elevated. I did order a CT of the abdomen and pelvis. I did review the images myself as well as the radiology report as described above. He does have a small bowel obstruction. I did discuss the case with the hospitalist and surgery. The patient was admitted to the hospital. I did discuss the test results with patient. An NG tube was ordered. Medication Reconcilliation Current Medication List: was personally reviewed by me Blood Pressure Screening Patient's blood pressure: Elevated blood pressure Referred to hospitalist. Consults Time Called: 1999 Consulting Physician: Dr. Rneo - [facility] Returned Call: [address] Reno of [facility]. We discussed the patient and his results. The patient will be further evaluated by Dr. Reno. Additional Consults: Time Called: 2001 Consulted Phys[facility] Returned Call: 2005 Additional Comments: I discussed the patient with Dr. Enrique [facility] general surgery - no acute intervention. Impression Primary Impression: Small bowel obstruction Additional Impression: Right hip pain Scribe Attestation The scribe's documentation has been prepared under my direct and personally reviewed by me in its entirety. I confirm that the note above accurately reflects all work, treatment, procedures, and medical decision making performed by me. Departure Information Dispostion Being Evaluated By Hospitalist Referrals Nakia Louise M.D. (PCP) Patient Instructions My [facility] Problem Qualifiers
[2017-09-12] MEDS: INSULIN ASPART 100 UNITS/ML 3 ML PEN SC SCH ×5 (00:16→23:33)
[2017-09-12] MEDS: SODIUM CHLORIDE 0.9% 1000ML 1,000 ML IV SCH (04:18)
[2017-09-12] MEDS ORDERED: CHLORASEPTIC 1.4% SOLN 180 ML BTL MT PRN (04:30)
[2017-09-12 06:38] LABS: HEMATOCRIT 44.4 % (42-52); MEAN CELL VOLUME 94.3 fL (80-100); PLATELET COUNT 175 K/uL (130-400); RED CELL DISTRIBUTION WIDTH CV 13.4 % (11.5-14.5); RED CELL DISTRIBUTION WIDTH SD 46.1 fL (36.4-46.3); WHITE BLOOD COUNT 11.56 K/uL (4.8-10.8)
[2017-09-12 06:57] LABS: CALCIUM 8.8 mg/dl (8.5-10.1); CREATININE 1.07 mg/dl (0.60-1.40); POTASSIUM 4.3 mmol/L (3.5-5.1)
[2017-09-12 07:05] VITALS: BP 158/102; PULSE 62; TEMP 36.8
[2017-09-12] MEDS: HEPARIN SOD 5000 UNIT/0.5 ML CARP SQ SCH ×3 (08:00→23:34)
[2017-09-12] MEDS ORDERED: HydrALAZINE HCL 20 MG/ML VIAL IV. PRN (08:00)
[2017-09-12 08:35] VITALS: BP 136/84; PULSE 62
[2017-09-12] MEDS ORDERED: NURSING VERBAL MED ORDER ONE (10:45)
[2017-09-12] MEDS ORDERED: ACETAMINOPHEN IV 1000MG/100ML IV PRN (10:45)
--- NOTE | 2017-09-12 11:52 | Surgery Progress Note ---
Surgery Progress Note Date of Service Sep 12, 2017. Subjective adm with recurrent sbo- see dictated consult last here 05/2017 Objective Vital Signs: Date Time Temp Pulse Resp B/P (MAP) Pulse Ox O2 Delivery O2 Flow Rate FiO2 09/12/17 08:35 62 136/84 (101) 09/12/17 08:00 Room Air 09/12/17 07:05 36.8 62 19 158/102 (120) Room Air 96.0 09/11/17 23:05 Room Air 09/11/17 22:51 36.4 69 18 149/94 (112) 93 Room Air 09/11/17 21:36 36.2 70 18 147/98 (114) 94 Room Air 09/11/17 21:02 36.6 74 18 137/87 96 09/11/17 20:59 Room Air 09/11/17 20:53 36.6 74 18 137/87 96 Room Air 09/11/17 18:32 72 09/11/17 18:18 79 16 159/105 96 Room Air 09/11/17 16:58 36.3 81 18 148/97 97 Room Air Physical Exam: nasogastric drainage (NG with cloudy bilious output) General Appearance: no apparent distress Respiratory/Chest: no respiratory distress Abdomen: + distended (decreased bowel sounds) Incision(s): drainage Laboratory Results: Results Past 24 Hours Test 09/11/17 18:30 09/11/17 19:24 09/12/17 00:01 09/12/17 05:59 Range/Units Urine Color YELLOW Urine Appearance CLEAR CLEAR Urine pH 6.0 4.5-7.5 Urine Specific [place] 1.026 1.000-1.030 Urine Protein NEG NEG Urine Glucose (UA) NEG NEG Urine Ketones NEG NEG Urine Occult Blood NEG NEG Urine Nitrite NEG NEG Urine Bilirubin NEG NEG Urine Urobilinogen NEG NEG Urine Leukocyte Esterase NEG NEG White Blood Count 13.65 4.8-10.8 K/uL Red Blood Count 4.72 4.7-6.1 M/uL Hemoglobin 15.9 14.0-18.0 g/dL Hematocrit 44.0 42-52 % Mean Corpuscular Volume 93.2 80-100 fL Mean Corpuscular Hemoglobin 33.7 25-34 pg Mean Corpuscular Hemoglobin Concent 36.1 32-36 g/dl Platelet Count 188 130-400 K/uL Mean Platelet Volume 10.1 7.4-10.4 fL Neutrophils (%) (Auto) 63.4 % Lymphocytes (%) (Auto) 26.1 % Monocytes (%) (Auto) 7.6 % Eosinophils (%) (Auto) 2.0 % Basophils (%) (Auto) 0.3 % Neutrophils # (Auto) 8.66 1.4-6.5 K/uL Lymphocytes # (Auto) 3.56 1.2-3.4 K/uL Monocytes # (Auto) 1.04 0.11-0.59 K/uL Eosinophils # (Auto) 0.27 0-0.5 K/uL Basophils # (Auto) 0.04 0-0.2 K/uL RDW Standard Deviation 45.4 36.4-46.3 fL RDW Coefficient of Variation 13.4 11.5-14.5 % Immature Granulocyte % (Auto) 0.6 % Immature Granulocyte # (Auto) 0.08 0.00-0.02 K/uL Sodium Level 136 136-145 mmol/L Potassium Level 4.2 3.5-5.1 mmol/L Chloride Level 104 98-107 mmol/L Carbon Dioxide Level 27 21-32 mmol/L Anion Gap 5.0 3-11 mmol/L Blood Urea Nitrogen 17 7-18 mg/dl Creatinine 1.05 0.60-1.40 mg/dl Est Creatinine Clear Calc Drug Dose 66.6 ml/min Estimated GFR () 81.2 Estimated GFR (Non- 70.1 BUN/Creatinine Ratio 15.9 10-20 Random Glucose 159 70-99 mg/dl Calcium Level 9.2 8.5-10.1 mg/dl Total Bilirubin 1.2 0.2-1 mg/dl Direct Bilirubin 0.2 0-0.2 mg/dl Aspartate Amino Transf (AST/SGOT) 22 15-37 U/L Alanine Aminotransferase (ALT/SGPT) 49 12-78 U/L Alkaline Phosphatase 112 45-117 U/L Total Protein 7.3 6.4-8.2 gm/dl Albumin 3.9 3.4-5.0 gm/dl Lipase 167 73-393 U/L Bedside Glucose 194 173 70-99 mg/dl Test 09/12/17 06:20 09/12/17 06:29 Range/Units Prothrombin Time 10.5 9.0-12.0 SECONDS Prothromb Time International Ratio 1.0 0.9-1.1 White Blood Count 11.56 4.8-10.8 K/uL Red Blood Count 4.71 4.7-6.1 M/uL Hemoglobin 16.0 14.0-18.0 g/dL Hematocrit 44.4 42-52 % Mean Corpuscular Volume 94.3 80-100 fL Mean Corpuscular Hemoglobin 34.0 25-34 pg Mean Corpuscular Hemoglobin Concent 36.0 32-36 g/dl RDW Standard Deviation 46.1 36.4-46.3 fL RDW Coefficient of Variation 13.4 11.5-14.5 % Platelet Count 175 130-400 K/uL Mean Platelet Volume 10.0 7.4-10.4 fL Sodium Level 137 136-145 mmol/L Potassium Level 4.3 3.5-5.1 mmol/L Chloride Level 103 98-107 mmol/L Carbon Dioxide Level 29 21-32 mmol/L Anion Gap 5.0 3-11 mmol/L Blood Urea Nitrogen 15 7-18 mg/dl Creatinine 1.07 0.60-1.40 mg/dl Est Creatinine Clear Calc Drug Dose 65.4 ml/min Estimated GFR () 79.4 Estimated GFR (Non- 68.5 BUN/Creatinine Ratio 13.6 10-20 Random Glucose 180 70-99 mg/dl Calcium Level 8.8 8.5-10.1 mg/dl Magnesium Level 1.8 1.8-2.4 mg/dl Assessment & Plan 09/12/17- adm with recurrent sbo- CT with similar transition point as last adm 2017. significant NG output- suspect adhesions from prior surgery. Discussing with pt possible need for abd exploration/ lysis of adhesions, possible resection. Will check back with him later today.
[2017-09-12] MEDS: HYDROmorphone INJ 2 MG/ML SYR/VIAL IV PRN ×2 (12:27→18:23)
[2017-09-12] MEDS ORDERED: PROMETHAZINE HCL INJ 25 MG in SODIUM CHLORIDE 0.9% 50ML 50 ML IV PRN (15:15)
[2017-09-12] MEDS ORDERED: HYDROmorphone INJ 0.5 MG/0.5 ML SYR IV PRN (15:15)
[2017-09-12 15:20] VITALS: BP 150/92; PULSE 74; TEMP 36.6; O2SAT 94
[2017-09-12] MEDS ORDERED: PROMETHAZINE HCL INJ 12.5 MG in SODIUM CHLORIDE 0.9% 50ML 50 ML IV PRN (15:30)
--- NOTE | 2017-09-12 15:51 | SURGICAL CONSULTATION ---
DATE OF ADMISSION: 09/11/2017 Consult for small bowel obstruction. HISTORY OF PRESENT ILLNESS: Patient is a 71-year-old male readmitted to the Emergency Room with complaints of nausea and abdominal pain with evidence on CAT scan of partial small-bowel obstruction. He had a prior episode back in May very similar with similar findings on his CAT scan. He has undergone prior laparoscopic cholecystectomy in 2016 and a sigmoid colon resection for diverticulitis in 2012, he does have probable adhesions. His other history includes history of hypertension, hyperlipidemia, diabetes, history of a small-bowel obstruction. He has had a hip arthroplasty, cholecystectomy, partial colectomy. FAMILY AND SOCIAL HISTORY: Essentially noncontributory. ALLERGIES: NSAIDS AND PREDNISONE. MEDICATIONS: He takes medications including metformin, metoprolol, oxycodone. REVIEW OF SYSTEMS: Other than the HPI is otherwise negative. PHYSICAL EXAMINATION: GENERAL: He is awake and alert. He has an NG tube in place draining cloudy bilious fluid. HEAD: Atraumatic. EYES: Sclerae normal. NECK: Supple. He is in no respiratory distress. HEART: He has regular rate and rhythm on his heart. ABDOMEN: Mildly distended. Decreased bowel sounds, nontender. SKIN: Normal color, dry and warm. I did review his CAT scan. ASSESSMENT AND PLAN: A 71-year-old male with recurrent small-bowel obstruction. Most likely this is from adhesions. I have discussed with the patient the likelihood of abdominal exploration and lysis of adhesions. Currently, we will continue with the NG tube and tentatively place him on the OR schedule for tomorrow depending on his progress.
--- NOTE | 2017-09-12 16:18 | Progress Note ---
Subjective Date of Service: Sep 12, 2017. Subjective Pt evaluation today including: conversation w/ patient, conversation w/ family , physical exam, chart review, lab review, review of studies, conversation w/ system consultant, review of inpatient medication list Feel very uncomfortable on NG tube, however still has more than 650ml NG tube suctioning coming out, report right facial pain and possible from the NG tube through the nose Deny cramping abdominal pain, denies nausea vomiting, not passing gas no bowel movement Problem List Medical Problems: (1) Bursitis of right hip Status: Acute (2) Herniated disc Status: Acute (3) Lumbar radiculopathy Status: Acute (4) Right hip pain Status: Acute (5) Sialoadenitis of submandibular gland Status: Acute Review of Systems Constitutional: No fever, No chills, No sweats, No weight loss, No weakness, No fatigue, No problem reported Eyes: No worsening of vision, No eye pain, No redness, No discharge, No diplopia ENT: No hearing loss, No unusual epistaxis, No nasal symptoms, No sore throat, No tinnitus, No dental problems, No trouble swallowing Respiratory: No cough, No sputum, No wheezing, No shortness of breath, No dyspnea on exertion, No dyspnea at rest, No hemoptysis Cardiac: No chest pain, No orthopnea, No PND, No edema, No claudication, No palpitations Abdomen: + see HPI, No pain, No nausea, No vomiting, No diarrhea, No constipation Musculoskeletal: No joint pain, No muscle pain, No swelling, No calf pain Male : No dysuria, No urinary frequency, No incontinence, No nocturia more than once/night, No slowing stream, No hematuria Neurologic: No memory loss, No paralysis, No weakness, No numbness/tingling, No vertigo, No balance problems Psychiatric: No depression symptoms, No anhedonism, No anxiety, No insomnia, No substance abuse Heme: No abnormal bleeding/bruising, No clotting problems, No swollen lymph nodes, No night sweats Endo: No fatigue, No excessive thirst, No excessive urination Skin: No rash, No itch, No new/changing skin lesions, No color change, No bleeding Objective Vital Signs Date Time Temp Pulse Resp B/P (MAP) Pulse Ox O2 Delivery O2 Flow Rate FiO2 09/12/17 15:20 36.6 74 18 150/92 (111) 94 Room Air 09/12/17 08:35 62 136/84 (101) 09/12/17 08:00 Room Air 09/12/17 07:05 36.8 62 19 158/102 (120) Room Air 96.0 09/11/17 23:05 Room Air 09/11/17 22:51 36.4 69 18 149/94 (112) 93 Room Air 09/11/17 21:36 36.2 70 18 147/98 (114) 94 Room Air 09/11/17 21:02 36.6 74 18 137/87 96 09/11/17 20:59 Room Air 09/11/17 20:53 36.6 74 18 137/87 96 Room Air 09/11/17 18:32 72 09/11/17 18:18 79 16 159/105 96 Room Air 09/11/17 16:58 36.3 81 18 148/97 97 Room Air Physical Exam General Appearance: WD/WN, no apparent distress, + pertinent finding (NG tube in place) Eyes: normal inspection, PERRL, EOMI, sclerae normal ENT: normal ENT inspection, hearing grossly normal, pharynx normal Neck: supple, no adenopathy, thyroid normal, no JVD, no carotid bruits, trachea midline Respiratory/Chest: chest non-tender, normal breath sounds, no respiratory distress, no accessory muscle use, + decreased breath sounds Cardiovascular: regular rate, rhythm, no gallop, no JVD, no murmur, + pertinent finding (Trace edema) Abdomen: non tender, soft, no organomegaly, no pulsatile mass, + abnormal bowel sounds (Absent bs) Extremities: normal range of motion, non-tender, normal inspection, no pedal edema, no calf tenderness, normal capillary refill, pelvis stable Neurologic/Psychiatric: photographic technician II-XII nml as tested, no motor/sensory deficits, alert, normal mood/affect, oriented x 3 Skin: normal color, warm/dry, no rash Lymphatic: no adenopathy Laboratory Results Last 24 Hours Test 09/11/17 18:30 09/11/17 19:24 09/12/17 00:01 09/12/17 05:59 Urine Color YELLOW Urine Appearance CLEAR Urine pH 6.0 Urine Specific [place] 1.026 Urine Protein NEG Urine Glucose (UA) NEG Urine Ketones NEG Urine Occult Blood NEG Urine Nitrite NEG Urine Bilirubin NEG Urine Urobilinogen NEG Urine Leukocyte Esterase NEG White Blood Count 13.65 K/uL Red Blood Count 4.72 M/uL Hemoglobin 15.9 g/dL Hematocrit 44.0 % Mean Corpuscular Volume 93.2 fL Mean Corpuscular Hemoglobin 33.7 pg Mean Corpuscular Hemoglobin Concent 36.1 g/dl Platelet Count 188 K/uL Mean Platelet Volume 10.1 fL Neutrophils (%) (Auto) 63.4 % Lymphocytes (%) (Auto) 26.1 % Monocytes (%) (Auto) 7.6 % Eosinophils (%) (Auto) 2.0 % Basophils (%) (Auto) 0.3 % Neutrophils # (Auto) 8.66 K/uL Lymphocytes # (Auto) 3.56 K/uL Monocytes # (Auto) 1.04 K/uL Eosinophils # (Auto) 0.27 K/uL Basophils # (Auto) 0.04 K/uL RDW Standard Deviation 45.4 fL RDW Coefficient of Variation 13.4 % Immature Granulocyte % (Auto) 0.6 % Immature Granulocyte # (Auto) 0.08 K/uL Sodium Level 136 mmol/L Potassium Level 4.2 mmol/L Chloride Level 104 mmol/L Carbon Dioxide Level 27 mmol/L Anion Gap 5.0 mmol/L Blood Urea Nitrogen 17 mg/dl Creatinine 1.05 mg/dl Est Creatinine Clear Calc Drug Dose 66.6 ml/min Estimated GFR () 81.2 Estimated GFR (Non- 70.1 BUN/Creatinine Ratio 15.9 Random Glucose 159 mg/dl Calcium Level 9.2 mg/dl Total Bilirubin 1.2 mg/dl Direct Bilirubin 0.2 mg/dl Aspartate Amino Transf (AST/SGOT) 22 U/L Alanine Aminotransferase (ALT/SGPT) 49 U/L Alkaline Phosphatase 112 U/L Total Protein 7.3 gm/dl Albumin 3.9 gm/dl Lipase 167 U/L Bedside Glucose 194 mg/dl 173 mg/dl Test 09/12/17 06:20 09/12/17 06:29 Prothrombin Time 10.5 SECONDS Prothromb Time International Ratio 1.0 White Blood Count 11.56 K/uL Red Blood Count 4.71 M/uL Hemoglobin 16.0 g/dL Hematocrit 44.4 % Mean Corpuscular Volume 94.3 fL Mean Corpuscular Hemoglobin 34.0 pg Mean Corpuscular Hemoglobin Concent 36.0 g/dl RDW Standard Deviation 46.1 fL RDW Coefficient of Variation 13.4 % Platelet Count 175 K/uL Mean Platelet Volume 10.0 fL Sodium Level 137 mmol/L Potassium Level 4.3 mmol/L Chloride Level 103 mmol/L Carbon Dioxide Level 29 mmol/L Anion Gap 5.0 mmol/L Blood Urea Nitrogen 15 mg/dl Creatinine 1.07 mg/dl Est Creatinine Clear Calc Drug Dose 65.4 ml/min Estimated GFR () 79.4 Estimated GFR (Non- 68.5 BUN/Creatinine Ratio 13.6 Random Glucose 180 mg/dl Calcium Level 8.8 mg/dl Magnesium Level 1.8 mg/dl Assessment and Plan 71 y/o M history of partial colectomy, recent SBO 06/17/17 admitted on August because of bowel obstruction Small bowel obstruction with progressive diffuse abdominal pain and nausea upon admission. A CT was obtained on arrival to the ER confirming recurrence of an SBO with the same transition point at the mid ventral abdomen. NGT placed will continue, continue NPO, IVF, antiemetics, analgesics provided Surgeon's input appreciated Hx HTN, HPL, DM II; continue current care, hydralazine as needed for accelerated hypertension by IV, insulin sliding scale for elevated blood glucose Full code - Heparin prophylaxis Discussed with patient answered all questions Continued [facility] stay due to: multiple IV medications needed Discharge planning: uncertain
[2017-09-12] MEDS: D5W AND 1/2NSS + 20MEQ KCL 1,000 ML IV SCH (16:25)
--- NOTE | 2017-09-12 18:23 | Anesthesiology Progress Note ---
Anesthesia Progress Note Date of Service Sep 12, 2017. Progress Notes The patient was seen, examined, and consented for anesthesia for exploratory laparotomy for small bowel obstruction. He is of acceptable anesthetic risk. An EKG was ordered as one has not been performed in greater than 1 year and he has a history of hypertension. The patient signed consent for general anesthesia as well as possible postoperative epidural should a full laparotomy be required by the surgeon.
[2017-09-12 22:53] VITALS: BP 168/98; PULSE 76; TEMP 36.6; O2SAT 94
[2017-09-12] MEDS: HYDROmorphone INJ 0.5 MG/0.5 ML SYR IV PRN (23:24)
[2017-09-12] MEDS: ONDANSETRON INJ 2 MG/ML 2 ML VIAL IV PRN (23:32)
[2017-09-13] VITALS (8 sets, daily range): BP systolic 132–159; BP diastolic 87–99; PULSE 77–110; TEMP 36.3–36.8; O2SAT 92–99
[2017-09-13] MEDS: D5W AND 1/2NSS + 20MEQ KCL 1,000 ML IV SCH ×3 (01:03→21:31)
[2017-09-13] MEDS: HYDROmorphone INJ 0.5 MG/0.5 ML SYR IV PRN (04:25)
[2017-09-13] MEDS: INSULIN ASPART 100 UNITS/ML 3 ML PEN SC SCH ×3 (05:35→18:33)
--- NOTE | 2017-09-13 06:18 | Surgery Progress Note ---
Surgery Progress Note Date of Service Sep 13, 2017. Subjective has significant NG output otherwise stable vital signs Objective Vital Signs: Date Time Temp Pulse Resp B/P (MAP) Pulse Ox O2 Delivery O2 Flow Rate FiO2 09/13/17 01:03 136/87 (103) 09/12/17 23:25 Room Air 09/12/17 22:53 36.6 76 17 168/98 (121) 94 Room Air 09/12/17 16:15 Room Air 09/12/17 15:20 36.6 74 18 150/92 (111) 94 Room Air 09/12/17 08:35 62 136/84 (101) 09/12/17 08:00 Room Air 09/12/17 07:05 36.8 62 19 158/102 (120) Room Air 96.0 General Appearance: no apparent distress Respiratory/Chest: no respiratory distress Abdomen: + distended Laboratory Results: Results Past 24 Hours Test 09/12/17 06:20 09/12/17 06:29 09/12/17 12:05 09/12/17 18:05 Range/Units Prothrombin Time 10.5 9.0-12.0 SECONDS Prothromb Time International Ratio 1.0 0.9-1.1 White Blood Count 11.56 4.8-10.8 K/uL Red Blood Count 4.71 4.7-6.1 M/uL Hemoglobin 16.0 14.0-18.0 g/dL Hematocrit 44.4 42-52 % Mean Corpuscular Volume 94.3 80-100 fL Mean Corpuscular Hemoglobin 34.0 25-34 pg Mean Corpuscular Hemoglobin Concent 36.0 32-36 g/dl RDW Standard Deviation 46.1 36.4-46.3 fL RDW Coefficient of Variation 13.4 11.5-14.5 % Platelet Count 175 130-400 K/uL Mean Platelet Volume 10.0 7.4-10.4 fL Sodium Level 137 136-145 mmol/L Potassium Level 4.3 3.5-5.1 mmol/L Chloride Level 103 98-107 mmol/L Carbon Dioxide Level 29 21-32 mmol/L Anion Gap 5.0 3-11 mmol/L Blood Urea Nitrogen 15 7-18 mg/dl Creatinine 1.07 0.60-1.40 mg/dl Est Creatinine Clear Calc Drug Dose 65.4 ml/min Estimated GFR () 79.4 Estimated GFR (Non- 68.5 BUN/Creatinine Ratio 13.6 10-20 Random Glucose 180 70-99 mg/dl Calcium Level 8.8 8.5-10.1 mg/dl Magnesium Level 1.8 1.8-2.4 mg/dl Bedside Glucose 157 167 70-99 mg/dl Test 09/12/17 23:30 09/13/17 04:44 09/13/17 05:32 Range/Units Bedside Glucose 188 177 70-99 mg/dl Assessment & Plan 09/13/17- plan to proceed with abdominal exploration for small bowel obstruction later today- cont current mgt- add atbx 09/12/17- adm with recurrent sbo- CT with similar transition point as last adm 2017. significant NG output- suspect adhesions from prior surgery. Discussing with pt possible need for abd exploration/ lysis of adhesions, possible resection. Will check back with him later today. 09/12/17- adm with recurrent sbo- CT with similar transition point as last adm 2017. significant NG output- suspect adhesions from prior surgery. Discussing with pt possible need for abd exploration/ lysis of adhesions, possible resection. Will check back with him later today.
[2017-09-13] MEDS ORDERED: NURSING VERBAL MED ORDER ONE (07:45)
[2017-09-13] MEDS: CEFOXITIN IV 2,000 MG in DEXTROSE 5% 50ML 50 ML IV SCH ×2 (07:59→12:00)
[2017-09-13] MEDS ORDERED: EpHEDrine SULFATE INJ 50 MG/ML AMP IV PRN (08:00)
[2017-09-13] MEDS ORDERED: PHENYLEPHRINE 100MCG/ML 5ML SYR IV PRN (08:00)
[2017-09-13] MEDS ORDERED: ONDANSETRON INJ 2 MG/ML 2 ML VIAL IV PRN (08:00)
[2017-09-13] MEDS ORDERED: ATROPINE SULFATE 0.1 MG/ML 5ML SYR IV PRN (08:00)
[2017-09-13] MEDS ORDERED: HYDROmorphone INJ 2 MG/ML SYR/VIAL IV PRN (08:00)
[2017-09-13] MEDS: PANTOprazole INJ 40 MG in SYRINGE 0 ML IV SCH (08:00)
[2017-09-13] MEDS: HEPARIN SOD 5000 UNIT/0.5 ML CARP SQ SCH ×2 (08:05→17:19)
[2017-09-13 09:08] LABS: CARBON DIOXIDE 29 mmol/L (21-32); CREATININE 0.92 mg/dl (0.60-1.40); GLUCOSE 184 mg/dl (70-99); PHOSPHORUS 2.8 mg/dl (2.5-4.9); SODIUM 135 mmol/L (136-145)
[2017-09-13 09:12] LABS: BLOOD UREA NITROGEN 9 mg/dl (7-18)
[2017-09-13] MEDS: ONDANSETRON INJ 2 MG/ML 2 ML VIAL IV PRN (09:51)
[2017-09-13 10:05] LABS: POTASSIUM 3.9 mmol/L (3.5-5.1)
[2017-09-13] MEDS ORDERED: FENTANYL CITRATE INJ 50 MCG/1 ML 2 ML VIAL ONE (13:16)
[2017-09-13] MEDS ORDERED: ROCURONIUM BROMIDE 10 MG/ML 5 ML VIAL IV ONE (14:14)
[2017-09-13] MEDS ORDERED: ONDANSETRON INJ 2 MG/ML 2 ML VIAL ONE (14:14)
[2017-09-13] MEDS ORDERED: NEOSTIGMINE METHYLSULFATE 5 MG/5 ML SYR ONE (14:14)
[2017-09-13] MEDS ORDERED: SUCCINYLCHOLINE CHLORIDE 20 MG/ML 10 ML VIAL IV ONE (14:14)
[2017-09-13] MEDS ORDERED: DEXAMETHASONE SOD INJ 4 MG/ML VIAL ONE (14:14)
[2017-09-13] MEDS ORDERED: EpHEDrine SULFATE 50MG/5ML SYR ONE (14:14)
[2017-09-13] MEDS ORDERED: GLYCOPYRROLATE INJ 0.2 MG/ML VIAL ONE (14:14)
[2017-09-13] MEDS ORDERED: HYDROmorphone INJ 2 MG/ML SYR/VIAL ONE ×2 (14:15→16:14)
[2017-09-13] MEDS ORDERED: LABETALOL HCL IV 5 MG/ML 20ML IV ONE (14:24)
--- NOTE | 2017-09-13 15:13 | [facility] Operative Report ---
Operative Report Operative Date Sep 13, 2017. Pre-Operative Diagnosis Small Bowel obstruction Post-Operative Diagnosis Small Bowel obstruction from adhesions Procedure(s) Performed Laparotomy with extensive Lysis of adhesions Surgeon Dr. Ray Maloney [employer] Surgeon(s) Rolando Henry PA-c Estimated Blood Loss 30 ml Findings diffuse small bowel adhesions Specimens None per surgeon Drains None (#15 Rd to pelvis) Anesthesia Type General Complication(s) none Disposition Recovery Room / PACU I attest to the content of the Intraoperative Record and any orders documented therein. Any exceptions are noted below.
[2017-09-13] MEDS ORDERED: PROMETHAZINE HCL INJ 25 MG in SODIUM CHLORIDE 0.9% 50ML 50 ML IV PRN (15:15)
[2017-09-13] MEDS ORDERED: NALOXONE HCL 0.4 MG/1 ML VIAL/CARP IV PRN (15:15)
[2017-09-13] MEDS ORDERED: PROPOFOL IV EMULSION 10 MG/ML 20 ML VIAL IV ONE (15:26)
--- NOTE | 2017-09-13 15:50 | DIAGNOSTIC IMAGING REPORT ---
KUB CLINICAL HISTORY: post op, NG placement COMPARISON STUDY: CT of the abdomen and pelvis September 11, 2017. FINDINGS: The tip of the nasogastric tube projects over the gastroesophageal junction or gastric cardia. The tube could be advanced 5 cm. Skin kathy from laparotomy are noted. There is a [place] drain. An additional possible drain projects over the pelvis. Right hip arthroplasty is noted. There are cholecystectomy clips. IMPRESSION: Tip of nasogastric tube projects over the gastroesophageal junction or gastric cardia. The tube could be advanced 5 cm. Electronically signed by: Eladio Schroeder M.D. 09/13/2017 3:48 PM Dictated Date/Time: 09/13/2017 3:47 PM
[2017-09-13] MEDS ORDERED: HYDROmorphone INJ 0.5 MG/0.5 ML SYR ONE (15:51)
--- NOTE | 2017-09-13 15:54 | OPERATIVE REPORT ---
DATE OF OPERATION: 09/13/2017 NAME OF OPERATION: Exploratory laparotomy with extensive lysis of adhesions. PREOPERATIVE DIAGNOSIS: Small-bowel obstruction. POSTOPERATIVE DIAGNOSIS: Same from adhesions. STAFF SURGEON: Dr. Maloney. LOCKSTITCH TUNNEL ELASTIC OPERATOR: Juvenal Henry PA-C. ANESTHESIA: General. PROCEDURE: The patient brought in the operating room and placed on the operating table in supine position. His abdomen was prepped and draped in usual fashion. The nasogastric tube was in place. Pneumatic stockings, Marx catheter were placed. Incision was made above and below the umbilicus, carrying dissection down through scar tissue, encountering significant dense adhesions of the omentum and small bowel to the anterior abdominal wall. With some difficulty these were mobilized. I was able to mobilize the bowel without any enterotomies. The distal small bowel was decompressed, it was traced to the cecum and then the ligament of Treitz was identified. The patient had extensive diffuse small bowel adhesions throughout the abdomen causing his small-bowel obstruction. These are almost entirely lysed, mobilizing the small bowel from the left side of the abdomen where it was very adherent from prior surgery and also the pelvis. After the small bowel was mobilized the abdomen was irrigated with warm saline solution. A 15 round Gil-Fernandez drain was placed into the pelvis, secured to the skin using 3-0 nylon suture. The fascia was then reapproximated using both running and interrupted #1 PDS suture. A [place] drain placed in the subcutaneous space, secured to the skin using 4-0 nylon suture. Subcutaneous tissue partially reapproximated using 2-0 plain catgut suture then the skin reapproximated using kathy. Dressing applied and patient transferred to recovery room in stable condition. My social work assistant helped with prepping, draping, entering the abdominal cavity, lysis of adhesions, closure of the abdomen and dressing placement. I attest to the content of the Intraoperative Record and any orders documented therein. Any exceptions are noted below. KIANNAD
[2017-09-13] MEDS: HYDROmorphone HCL 0.5MG/ML 50 ML CASSETTE IV PRN ×3 (15:58→23:03)
--- NOTE | 2017-09-13 16:24 | Anesthesiology Progress Note ---
Anesthesia Post Op Note Date & Time Sep 13, 2017 at 16:24 Vital Signs Vital Signs Past 12 Hours Date Time Temp Pulse Resp B/P (MAP) Pulse Ox O2 Delivery O2 Flow Rate FiO2 09/13/17 15:34 36.8 62 16 150/82 100 Oxymask 10 09/13/17 08:00 Room Air 09/13/17 07:49 36.7 77 18 159/89 (112) 95 Room Air Notes Mental Status: alert / awake / arousable, participated in evaluation Pt Amnestic to Procedure: Yes Nausea / Vomiting: adequately controlled Pain: adequately controlled Airway Patency, RR, SpO2: stable & adequate BP & HR: stable & adequate Hydration State: stable & adequate Anesthetic Complications: no major complications apparent
--- NOTE | 2017-09-13 17:10 | Progress Note ---
Subjective Date of Service: Sep 13, 2017. Subjective Pt evaluation today including: conversation w/ patient, conversation w/ family , physical exam, chart review, lab review, review of studies, conversation w/ specialty sales consultant, review of inpatient medication list Report has significant output from NG tube, associated with nausea , no bowel movement, no passing gas, denies fever and chill Problem List Medical Problems: (1) Bursitis of right hip Status: Acute (2) Herniated disc Status: Acute (3) Lumbar radiculopathy Status: Acute (4) Right hip pain Status: Acute (5) Sialoadenitis of submandibular gland Status: Acute Review of Systems Constitutional: + weakness, + fatigue, No fever, No chills, No sweats, No weight loss, No problem reported Eyes: No worsening of vision, No eye pain, No redness, No discharge, No diplopia ENT: No hearing loss, No unusual epistaxis, No nasal symptoms, No sore throat, No tinnitus, No dental problems, No trouble swallowing Respiratory: No cough, No sputum, No wheezing, No shortness of breath, No dyspnea on exertion, No dyspnea at rest, No hemoptysis Cardiac: No chest pain, No orthopnea, No PND, No edema, No claudication, No palpitations Abdomen: + nausea, No pain, No vomiting, No diarrhea, No constipation Musculoskeletal: No joint pain, No muscle pain, No swelling, No calf pain Male : No dysuria, No urinary frequency, No incontinence, No nocturia more than once/night, No slowing stream, No hematuria Neurologic: No memory loss, No paralysis, No weakness, No numbness/tingling, No vertigo, No balance problems Psychiatric: No depression symptoms, No anhedonism, No anxiety, No insomnia, No substance abuse Heme: No abnormal bleeding/bruising, No clotting problems, No swollen lymph nodes, No night sweats Endo: No fatigue, No excessive thirst, No excessive urination Skin: No rash, No itch, No new/changing skin lesions, No color change, No bleeding Objective Vital Signs Date Time Temp Pulse Resp B/P (MAP) Pulse Ox O2 Delivery O2 Flow Rate FiO2 09/13/17 16:50 36.5 73 14 131/85 98 Nasal Cannula 4 09/13/17 16:40 36.5 68 14 131/78 97 Nasal Cannula 4 09/13/17 16:30 36.5 70 14 125/77 98 Nasal Cannula 4 09/13/17 16:20 36.5 62 14 132/93 98 Nasal Cannula 4 09/13/17 16:10 70 14 136/86 100 Nasal Cannula 4 09/13/17 16:00 67 14 143/83 100 Nasal Cannula 4 09/13/17 15:50 65 14 146/88 100 Oxymask 10 09/13/17 15:40 68 14 170/98 100 Oxymask 10 09/13/17 15:34 36.8 62 16 150/82 100 Oxymask 10 09/13/17 08:00 Room Air 09/13/17 07:49 36.7 77 18 159/89 (112) 95 Room Air 09/13/17 01:03 136/87 (103) 09/12/17 23:25 Room Air 09/12/17 22:53 36.6 76 17 168/98 (121) 94 Room Air Physical Exam General Appearance: WD/WN, no apparent distress, + pertinent finding (NG tube in place) Eyes: normal inspection, PERRL, EOMI, sclerae normal ENT: normal ENT inspection, hearing grossly normal, pharynx normal Neck: supple, no adenopathy, thyroid normal, no JVD, no carotid bruits, trachea midline Respiratory/Chest: chest non-tender, normal breath sounds, no respiratory distress, no accessory muscle use, + decreased breath sounds Cardiovascular: regular rate, rhythm, no edema, no gallop, no JVD, no murmur Abdomen: non tender, soft, no organomegaly, no pulsatile mass, + pertinent finding (Silent bowel sounds) Extremities: normal range of motion, non-tender, normal inspection, no pedal edema, no calf tenderness, normal capillary refill, pelvis stable Neurologic/Psychiatric: canary breeder II-XII nml as tested, no motor/sensory deficits, alert, normal mood/affect, oriented x 3 Skin: normal color, warm/dry, no rash Lymphatic: no adenopathy Laboratory Results Last 24 Hours Test 09/12/17 18:05 09/12/17 23:30 09/13/17 05:32 09/13/17 08:01 Bedside Glucose 167 mg/dl 188 mg/dl 177 mg/dl Sodium Level 135 mmol/L Potassium Level mmol/L Chloride Level 101 mmol/L Carbon Dioxide Level 29 mmol/L Anion Gap 5.0 mmol/L Blood Urea Nitrogen 9 mg/dl Creatinine 0.92 mg/dl Est Creatinine Clear Calc Drug Dose 76.1 ml/min Estimated GFR () 95.3 Estimated GFR (Non- 82.2 BUN/Creatinine Ratio 9.8 Random Glucose 184 mg/dl Calcium Level 9.0 mg/dl Phosphorus Level 2.8 mg/dl Test 09/13/17 09:39 09/13/17 11:50 09/13/17 16:02 Potassium Level 3.9 mmol/L Chemistry Specimen Hemolysis Bedside Glucose 202 mg/dl 175 mg/dl Assessment and Plan 71 y/o M history of partial colectomy, recent SBO 06/17/17 admitted on August because of bowel obstruction Small bowel obstruction with progressive diffuse abdominal pain and nausea upon admission. A CT was obtained on arrival to the ER confirming recurrence of an SBO with the same transition point at the mid ventral abdomen. NGT placed , has been on NPO, IVF, antiemetics, analgesics provided Surgeon's input appreciated, patient had exploratory laparotomy with extensive lysis of adhesions today Hx HTN, HPL, DM II; continue current care, hydralazine as needed for accelerated hypertension by IV, insulin sliding scale for elevated blood glucose Follow-up tomorrow morning lab Full code - Heparin prophylaxis Discussed with patient answered all questions Continued [facility] stay due to: multiple IV medications needed Discharge planning: uncertain
[2017-09-13] MEDS: SODIUM CHLORIDE 0.9% 1000ML 1,000 ML IV SCH (17:19)
[2017-09-13] MEDS: CEFOXITIN IV 1,000 MG in DEXTROSE 5% 50ML 50 ML IV SCH (18:35)
[2017-09-14] MEDS: CEFOXITIN IV 1,000 MG in DEXTROSE 5% 50ML 50 ML IV SCH ×4 (00:09→18:44)
[2017-09-14] MEDS: INSULIN ASPART 100 UNITS/ML 3 ML PEN SC SCH ×4 (00:10→18:31)
[2017-09-14] MEDS: HEPARIN SOD 5000 UNIT/0.5 ML CARP SQ SCH ×3 (00:11→15:38)
[2017-09-14 03:27] VITALS: BP 144/89; PULSE 76; TEMP 36.8; O2SAT 96
[2017-09-14 05:53] LABS: HEMATOCRIT 44.5 % (42-52); MEAN CELL VOLUME 94.9 fL (80-100); MEAN CORPUSCULAR HEMOGLOBIN 34.1 pg (25-34); MEAN PLATELET VOLUME 10.5 fL (7.4-10.4); PLATELET COUNT 180 K/uL (130-400); RED CELL DISTRIBUTION WIDTH CV 13.6 % (11.5-14.5); RED CELL DISTRIBUTION WIDTH SD 46.4 fL (36.4-46.3); WHITE BLOOD COUNT 13.47 K/uL (4.8-10.8)
--- NOTE | 2017-09-14 06:02 | Surgery Progress Note ---
Surgery Progress Note Date of Service Sep 14, 2017. Subjective alert, pain controlled with RIVET HAMMER MACHINE OPERATOR Objective Vital Signs: Date Time Temp Pulse Resp B/P (MAP) Pulse Ox O2 Delivery O2 Flow Rate FiO2 09/14/17 03:27 36.8 76 18 144/89 (107) 96 Room Air 09/14/17 00:15 Room Air 09/13/17 23:22 36.6 103 18 151/93 (112) 95 Room Air 09/13/17 20:28 99 92 Room Air 09/13/17 20:07 36.6 110 18 157/99 (118) 95 Room Air 09/13/17 19:10 36.8 103 16 132/91 (105) 99 Nasal Cannula 4.0 09/13/17 18:05 36.4 93 18 137/88 (104) 98 Nasal Cannula 4.0 09/13/17 17:33 36.3 95 16 155/99 (117) 97 Nasal Cannula 4.0 09/13/17 17:00 Nasal Cannula 4.0 09/13/17 16:50 36.5 73 14 131/85 98 Nasal Cannula 4 09/13/17 16:40 36.5 68 14 131/78 97 Nasal Cannula 4 09/13/17 16:30 36.5 70 14 125/77 98 Nasal Cannula 4 09/13/17 16:20 36.5 62 14 132/93 98 Nasal Cannula 4 09/13/17 16:10 70 14 136/86 100 Nasal Cannula 4 09/13/17 16:00 67 14 143/83 100 Nasal Cannula 4 09/13/17 15:50 65 14 146/88 100 Oxymask 10 09/13/17 15:40 68 14 170/98 100 Oxymask 10 09/13/17 15:34 36.8 62 16 150/82 100 Oxymask 10 09/13/17 08:00 Room Air 09/13/17 07:49 36.7 77 18 159/89 (112) 95 Room Air General Appearance: no apparent distress Respiratory/Chest: no respiratory distress Abdomen: soft Incision(s): intact, drainage (has austin drain) Laboratory Results: Results Past 24 Hours Test 09/13/17 08:01 09/13/17 09:39 09/13/17 11:50 09/13/17 16:02 Range/Units Sodium Level 135 136-145 mmol/L Potassium Level 3.9 3.5-5.1 mmol/L Chloride Level 101 98-107 mmol/L Carbon Dioxide Level 29 21-32 mmol/L Anion Gap 5.0 3-11 mmol/L Blood Urea Nitrogen 9 7-18 mg/dl Creatinine 0.92 0.60-1.40 mg/dl Est Creatinine Clear Calc Drug Dose 76.1 ml/min Estimated GFR () 95.3 Estimated GFR (Non- 82.2 BUN/Creatinine Ratio 9.8 10-20 Random Glucose 184 70-99 mg/dl Calcium Level 9.0 8.5-10.1 mg/dl Phosphorus Level 2.8 2.5-4.9 mg/dl Chemistry Specimen Hemolysis Bedside Glucose 202 175 70-99 mg/dl Test 09/13/17 18:01 09/13/17 23:53 09/14/17 05:14 Range/Units Bedside Glucose 203 236 70-99 mg/dl White Blood Count 13.47 4.8-10.8 K/uL Red Blood Count 4.69 4.7-6.1 M/uL Hemoglobin 16.0 14.0-18.0 g/dL Hematocrit 44.5 42-52 % Mean Corpuscular Volume 94.9 80-100 fL Mean Corpuscular Hemoglobin 34.1 25-34 pg Mean Corpuscular Hemoglobin Concent 36.0 32-36 g/dl RDW Standard Deviation 46.4 36.4-46.3 fL RDW Coefficient of Variation 13.6 11.5-14.5 % Platelet Count 180 130-400 K/uL Mean Platelet Volume 10.5 7.4-10.4 fL Assessment & Plan 09/14/17- s/p laparotomy , extensive lysis of adhesions- no resection. overall stable- good urine output, NG decreased- less irritation. has subcut austin and pelvic CARL drains. Cont NG , RIVET HAMMER MACHINE OPERATOR encourage ambulation. Concern for ileus. Dr Roberson covering over weekend 09/13/17- plan to proceed with abdominal exploration for small bowel obstruction later today- cont current mgt- add atbx 09/12/17- adm with recurrent sbo- CT with similar transition point as last adm 2017. significant NG output- suspect adhesions from prior surgery. Discussing with pt possible need for abd exploration/ lysis of adhesions, possible resection. Will check back with him later today. 09/13/17- plan to proceed with abdominal exploration for small bowel obstruction later today- cont current mgt- add atbx 09/12/17- adm with recurrent sbo- CT with similar transition point as last adm 2017. significant NG output- suspect adhesions from prior surgery. Discussing with pt possible need for abd exploration/ lysis of adhesions, possible resection. Will check back with him later today.
[2017-09-14 06:22] LABS: CALCIUM 8.8 mg/dl (8.5-10.1); CREATININE 1.1 mg/dl (0.60-1.40); PHOSPHORUS 2.7 mg/dl (2.5-4.9)
[2017-09-14] MEDS: SODIUM CHLOR 0.45% + 20MEQ KCL 1,000 ML IV SCH ×2 (06:27→17:04)
[2017-09-14] MEDS: HYDROmorphone HCL 0.5MG/ML 50 ML CASSETTE IV PRN ×3 (07:05→23:06)
[2017-09-14 07:32] LABS: POTASSIUM 4.3 mmol/L (3.5-5.1)
[2017-09-14 08:10] VITALS: BP 149/82; PULSE 96; TEMP 36.8; O2SAT 97
[2017-09-14] MEDS: PANTOprazole INJ 40 MG in SYRINGE 0 ML IV SCH (11:13)
[2017-09-14 11:51] VITALS: Ht 170.2 cm; Wt 85.2 kg
[2017-09-14 12:00] VITALS: BP 140/82; PULSE 90; TEMP 36.6; O2SAT 95
[2017-09-14 15:16] VITALS: BP 138/89; PULSE 84; TEMP 37; O2SAT 95
--- NOTE | 2017-09-14 15:29 | Progress Note ---
Subjective Date of Service: Sep 14, 2017. Subjective Pt evaluation today including: conversation w/ patient, physical exam, chart review, lab review, review of studies, conversation w/ guidance consultant, review of inpatient medication list Still has a lot of uncomfortable from NG tube but generally much better, has heave, no passing gas yet, denies abdominal pain Problem List Medical Problems: (1) Bursitis of right hip Status: Acute (2) Herniated disc Status: Acute (3) Lumbar radiculopathy Status: Acute (4) Right hip pain Status: Acute (5) Sialoadenitis of submandibular gland Status: Acute Review of Systems Constitutional: No fever, No chills, No sweats, No weight loss, No weakness, No fatigue, No problem reported Eyes: No worsening of vision, No eye pain, No redness, No discharge, No diplopia ENT: No hearing loss, No unusual epistaxis, No nasal symptoms, No sore throat, No tinnitus, No dental problems, No trouble swallowing Respiratory: No cough, No sputum, No wheezing, No shortness of breath, No dyspnea on exertion, No dyspnea at rest, No hemoptysis Cardiac: No chest pain, No orthopnea, No PND, No edema, No claudication, No palpitations Abdomen: No pain, No nausea, No vomiting, No diarrhea, No constipation Musculoskeletal: No joint pain, No muscle pain, No swelling, No calf pain Male : No dysuria, No urinary frequency, No incontinence, No nocturia more than once/night, No slowing stream, No hematuria Neurologic: No memory loss, No paralysis, No weakness, No numbness/tingling, No vertigo, No balance problems Psychiatric: No depression symptoms, No anhedonism, No anxiety, No insomnia, No substance abuse Heme: No abnormal bleeding/bruising, No clotting problems, No swollen lymph nodes, No night sweats Endo: No fatigue, No excessive thirst, No excessive urination Skin: No rash, No itch, No new/changing skin lesions, No color change, No bleeding Objective Vital Signs Date Time Temp Pulse Resp B/P (MAP) Pulse Ox O2 Delivery O2 Flow Rate FiO2 09/14/17 15:16 37.0 84 18 138/89 (105) 95 Room Air 09/14/17 12:00 36.6 90 18 140/82 (101) 95 Room Air 09/14/17 08:10 36.8 96 16 149/82 (104) 97 Room Air 09/14/17 08:00 Room Air 09/14/17 03:27 36.8 76 18 144/89 (107) 96 Room Air 09/14/17 00:15 Room Air 09/13/17 23:22 36.6 103 18 151/93 (112) 95 Room Air 09/13/17 20:28 99 92 Room Air 09/13/17 20:07 36.6 110 18 157/99 (118) 95 Room Air 09/13/17 19:10 36.8 103 16 132/91 (105) 99 Nasal Cannula 4.0 09/13/17 18:05 36.4 93 18 137/88 (104) 98 Nasal Cannula 4.0 09/13/17 17:33 36.3 95 16 155/99 (117) 97 Nasal Cannula 4.0 09/13/17 17:00 Nasal Cannula 4.0 09/13/17 16:50 36.5 73 14 131/85 98 Nasal Cannula 4 09/13/17 16:40 36.5 68 14 131/78 97 Nasal Cannula 4 09/13/17 16:30 36.5 70 14 125/77 98 Nasal Cannula 4 09/13/17 16:20 36.5 62 14 132/93 98 Nasal Cannula 4 09/13/17 16:10 70 14 136/86 100 Nasal Cannula 4 09/13/17 16:00 67 14 143/83 100 Nasal Cannula 4 09/13/17 15:50 65 14 146/88 100 Oxymask 10 09/13/17 15:40 68 14 170/98 100 Oxymask 10 09/13/17 15:34 36.8 62 16 150/82 100 Oxymask 10 Physical Exam General Appearance: WD/WN, no apparent distress Eyes: normal inspection, PERRL, EOMI, sclerae normal ENT: normal ENT inspection, hearing grossly normal, pharynx normal, + pertinent finding (NG tube in place) Neck: supple, no adenopathy, thyroid normal, no JVD, no carotid bruits, trachea midline Respiratory/Chest: chest non-tender, lungs clear, normal breath sounds, no respiratory distress, no accessory muscle use Cardiovascular: regular rate, rhythm, no edema, no gallop, no JVD, no murmur Abdomen: non tender, soft, no organomegaly, no pulsatile mass, + abnormal bowel sounds (Bowel sounds silent), + pertinent finding (Marx catheter in place ) Extremities: normal range of motion, non-tender, normal inspection, no pedal edema, no calf tenderness, normal capillary refill, pelvis stable Neurologic/Psychiatric: utility systems repairer operator II-XII nml as tested, no motor/sensory deficits, alert, normal mood/affect, oriented x 3 Skin: normal color, warm/dry, no rash Lymphatic: no adenopathy Laboratory Results Last 24 Hours Test 09/13/17 16:02 09/13/17 18:01 09/13/17 23:53 09/14/17 05:14 Bedside Glucose 175 mg/dl 203 mg/dl 236 mg/dl White Blood Count 13.47 K/uL Red Blood Count 4.69 M/uL Hemoglobin 16.0 g/dL Hematocrit 44.5 % Mean Corpuscular Volume 94.9 fL Mean Corpuscular Hemoglobin 34.1 pg Mean Corpuscular Hemoglobin Concent 36.0 g/dl RDW Standard Deviation 46.4 fL RDW Coefficient of Variation 13.6 % Platelet Count 180 K/uL Mean Platelet Volume 10.5 fL Sodium Level 134 mmol/L Potassium Level mmol/L Chloride Level 99 mmol/L Carbon Dioxide Level 30 mmol/L Anion Gap 5.0 mmol/L Blood Urea Nitrogen 9 mg/dl Creatinine 1.10 mg/dl Est Creatinine Clear Calc Drug Dose 63.6 ml/min Estimated GFR () 76.8 Estimated GFR (Non- 66.2 BUN/Creatinine Ratio 8.5 Random Glucose 203 mg/dl Calcium Level 8.8 mg/dl Phosphorus Level 2.7 mg/dl Magnesium Level mg/dl Test 09/14/17 05:57 09/14/17 06:35 09/14/17 11:52 Bedside Glucose 206 mg/dl 155 mg/dl Potassium Level 4.3 mmol/L Magnesium Level 1.9 mg/dl Assessment and Plan 71 y/o M history of partial colectomy, recent SBO 06/17/17 admitted on August because of bowel obstruction Small bowel obstruction with progressive diffuse abdominal pain and nausea upon admission. A CT was obtained on arrival to the ER confirming recurrence of an SBO with the same transition point at the mid ventral abdomen. NGT placed , has been on NPO, IVF, antiemetics, analgesics provided Surgeon's input appreciated, patient had exploratory laparotomy with extensive lysis of adhesions Postop day 1, surgeon continue follow-up, Cont NG , FARM TRACTOR MECHANIC, encourage ambulation. Hx HTN, HPL, DM II; continue current care, hydralazine as needed for accelerated hypertension by IV, insulin sliding scale for elevated blood glucose, which is better Follow-up tomorrow morning lab Full code - Heparin prophylaxis Discussed with patient answered all questions Continued [facility] stay due to: multiple IV medications needed Discharge planning: uncertain
[2017-09-14] MEDS: SODIUM CHLORIDE 0.9% 1000ML 1,000 ML IV SCH (15:39)
[2017-09-14 19:33] VITALS: BP 151/92; PULSE 88; TEMP 36.9; O2SAT 95
[2017-09-14] MEDS: FLUTICASONE PROPIONATE NA SPR 16 GM BTL SCH (20:48)
[2017-09-14 23:03] VITALS: BP 134/87; PULSE 77; TEMP 36.7; O2SAT 97
[2017-09-15] MEDS: HEPARIN SOD 5000 UNIT/0.5 ML CARP SQ SCH ×3 (00:06→16:43)
[2017-09-15] MEDS: CEFOXITIN IV 1,000 MG in DEXTROSE 5% 50ML 50 ML IV SCH ×4 (00:07→17:35)
[2017-09-15] MEDS: SODIUM CHLOR 0.45% + 20MEQ KCL 1,000 ML IV SCH ×2 (03:33→14:18)
[2017-09-15] MEDS: RANITIDINE HCL 150 MG TAB PO PRN (03:53)
[2017-09-15 05:30] LABS: HEMOGLOBIN 14.7 g/dL (14.0-18.0); MEAN CELL VOLUME 96.2 fL (80-100); MEAN CORPUSCULAR HEMOGLOBIN 32.9 pg (25-34); MEAN CORPUSCULAR HGB CONC 34.2 g/dl (32-36); PLATELET COUNT 182 K/uL (130-400); RED CELL DISTRIBUTION WIDTH CV 13.8 % (11.5-14.5); RED CELL DISTRIBUTION WIDTH SD 48.2 fL (36.4-46.3); WHITE BLOOD COUNT 12.39 K/uL (4.8-10.8)
[2017-09-15] MEDS: INSULIN ASPART 100 UNITS/ML 3 ML PEN SC SCH ×4 (05:51→17:57)
[2017-09-15 06:30] LABS: CALCIUM 8.9 mg/dl (8.5-10.1); CREATININE 1.06 mg/dl (0.60-1.40); PHOSPHORUS 3.1 mg/dl (2.5-4.9)
[2017-09-15 07:05] VITALS: BP 119/84; PULSE 81; TEMP 36.7; O2SAT 95
[2017-09-15] MEDS: HYDROmorphone HCL 0.5MG/ML 50 ML CASSETTE IV PRN ×2 (07:15→22:52)
[2017-09-15 07:39] LABS: POTASSIUM 4.2 mmol/L (3.5-5.1)
[2017-09-15] MEDS: FLUTICASONE PROPIONATE NA SPR 16 GM BTL SCH ×2 (08:39→20:34)
[2017-09-15] MEDS: PANTOprazole INJ 40 MG in SYRINGE 0 ML IV SCH (11:13)
[2017-09-15 11:30] VITALS: BP 139/90; PULSE 93; TEMP 36.6; O2SAT 96
--- NOTE | 2017-09-15 12:39 | Surgery Progress Note ---
Surgery Progress Note Date of Service Sep 15, 2017. Subjective Post OP Day: 2 + ambulating, + pain controlled, No nausea, No vomiting Objective Vital Signs: Date Time Temp Pulse Resp B/P (MAP) Pulse Ox O2 Delivery O2 Flow Rate FiO2 09/15/17 11:30 36.6 93 16 139/90 (106) 96 Room Air 09/15/17 07:20 Room Air 09/15/17 07:05 36.7 81 16 119/84 (96) 95 Room Air 09/15/17 00:00 Room Air 09/14/17 23:03 36.7 77 16 134/87 (103) 97 Room Air 09/14/17 19:33 36.9 88 18 151/92 (111) 95 Room Air 09/14/17 15:30 Room Air 09/14/17 15:16 37.0 84 18 138/89 (105) 95 Room Air General Appearance: WD/WN, no apparent distress Head: normocephalic, atraumatic Abdomen: + tenderness (at incision. ) Incision(s): clean, dry, intact, drainage Laboratory Results: Results Past 24 Hours Test 09/14/17 18:13 09/14/17 23:43 09/15/17 05:08 09/15/17 05:48 Range/Units Bedside Glucose 150 143 145 70-99 mg/dl White Blood Count 12.39 4.8-10.8 K/uL Red Blood Count 4.47 4.7-6.1 M/uL Hemoglobin 14.7 14.0-18.0 g/dL Hematocrit 43.0 42-52 % Mean Corpuscular Volume 96.2 80-100 fL Mean Corpuscular Hemoglobin 32.9 25-34 pg Mean Corpuscular Hemoglobin Concent 34.2 32-36 g/dl RDW Standard Deviation 48.2 36.4-46.3 fL RDW Coefficient of Variation 13.8 11.5-14.5 % Platelet Count 182 130-400 K/uL Mean Platelet Volume 10.0 7.4-10.4 fL Sodium Level 133 136-145 mmol/L Potassium Level 3.5-5.1 mmol/L Chloride Level 100 98-107 mmol/L Carbon Dioxide Level 31 21-32 mmol/L Anion Gap 2.0 3-11 mmol/L Blood Urea Nitrogen 13 7-18 mg/dl Creatinine 1.06 0.60-1.40 mg/dl Est Creatinine Clear Calc Drug Dose 66.0 ml/min Estimated GFR () 80.3 Estimated GFR (Non- 69.3 BUN/Creatinine Ratio 12.3 10-20 Random Glucose 140 70-99 mg/dl Calcium Level 8.9 8.5-10.1 mg/dl Phosphorus Level 3.1 2.5-4.9 mg/dl Magnesium Level 1.8-2.4 mg/dl Test 09/15/17 06:48 Range/Units Potassium Level 4.2 3.5-5.1 mmol/L Magnesium Level 1.8 1.8-2.4 mg/dl Assessment & Plan 09/15/17- s/p Laparotomy, Extensive Lysis of Adhesions, No resection with Dr. Maloney on 09/13/17 Patient seen and examined with Dr. Roberson. Pain controlled with TELEVISION SPECIALIST at this time. Patient ambulating in hallway. Encouraged continued ambulation. Incision check- dressing removed (bloody drainage noted, austin drain in place), clean dressing placed. Marx catheter in place- urine output good. NG tube in place. Still awaiting return of bowel function. Will continue to monitor. 09/14/17- s/p laparotomy , extensive lysis of adhesions- no resection. overall stable- good urine output, NG decreased- less irritation. has subcut austin and pelvic CARL drains. Cont NG , TELEVISION SPECIALIST encourage ambulation. Concern for ileus. Dr Roberson covering over weekend 09/13/17- plan to proceed with abdominal exploration for small bowel obstruction later today- cont current mgt- add atbx 09/12/17- adm with recurrent sbo- CT with similar transition point as last adm 2017. significant NG output- suspect adhesions from prior surgery. Discussing with pt possible need for abd exploration/ lysis of adhesions, possible resection. Will check back with him later today. 09/13/17- plan to proceed with abdominal exploration for small bowel obstruction later today- cont current mgt- add atbx 09/12/17- adm with recurrent sbo- CT with similar transition point as last adm 2017. significant NG output- suspect adhesions from prior surgery. Discussing with pt possible need for abd exploration/ lysis of adhesions, possible resection. Will check back with him later today.
[2017-09-15 15:52] VITALS: BP 137/87; PULSE 92; TEMP 36.6; O2SAT 95
[2017-09-15] MEDS: SODIUM CHLORIDE 0.9% 1000ML 1,000 ML IV SCH (16:00)
--- NOTE | 2017-09-15 16:54 | Progress Note ---
Subjective Date of Service: Sep 15, 2017. Subjective Pt evaluation today including: conversation w/ patient, chart review, lab review, review of studies, conversation w/ it support consultant, review of inpatient medication list Sitting up in chair, pain controlled by CERTIFIED REGISTERED DENTAL ASSISTANT pump, no fever and chill, general condition feeling better, NG tube suctioning output is decreased Problem List Medical Problems: (1) Bursitis of right hip Status: Acute (2) Herniated disc Status: Acute (3) Lumbar radiculopathy Status: Acute (4) Right hip pain Status: Acute (5) Sialoadenitis of submandibular gland Status: Acute Review of Systems Constitutional: + weakness, + fatigue, No fever, No chills, No sweats, No weight loss, No problem reported Eyes: No worsening of vision, No eye pain, No redness, No discharge, No diplopia ENT: + problem reported (nose congested), No hearing loss, No unusual epistaxis, No nasal symptoms, No sore throat, No tinnitus, No dental problems, No trouble swallowing Respiratory: No cough, No sputum, No wheezing, No shortness of breath, No dyspnea on exertion, No dyspnea at rest, No hemoptysis Cardiac: No chest pain, No orthopnea, No PND, No edema, No claudication, No palpitations Abdomen: No pain, No nausea, No vomiting, No diarrhea, No constipation Musculoskeletal: No joint pain, No muscle pain, No swelling, No calf pain Male : No dysuria, No urinary frequency, No incontinence, No nocturia more than once/night, No slowing stream, No hematuria Neurologic: No memory loss, No paralysis, No weakness, No numbness/tingling, No vertigo, No balance problems Psychiatric: No depression symptoms, No anhedonism, No anxiety, No insomnia, No substance abuse Heme: No abnormal bleeding/bruising, No clotting problems, No swollen lymph nodes, No night sweats Endo: No fatigue, No excessive thirst, No excessive urination Skin: No rash, No itch, No new/changing skin lesions, No color change, No bleeding Objective Vital Signs Date Time Temp Pulse Resp B/P (MAP) Pulse Ox O2 Delivery O2 Flow Rate FiO2 09/15/17 15:52 36.6 92 18 137/87 (104) 95 Room Air 09/15/17 11:30 36.6 93 16 139/90 (106) 96 Room Air 09/15/17 07:20 Room Air 09/15/17 07:05 36.7 81 16 119/84 (96) 95 Room Air 09/15/17 00:00 Room Air 09/14/17 23:03 36.7 77 16 134/87 (103) 97 Room Air 09/14/17 19:33 36.9 88 18 151/92 (111) 95 Room Air Physical Exam General Appearance: WD/WN, no apparent distress Eyes: normal inspection, PERRL, EOMI, sclerae normal ENT: normal ENT inspection, hearing grossly normal, pharynx normal Neck: supple, no adenopathy, thyroid normal, no JVD, no carotid bruits, trachea midline Respiratory/Chest: chest non-tender, normal breath sounds, no respiratory distress, no accessory muscle use, + decreased breath sounds Cardiovascular: regular rate, rhythm, no edema, no gallop, no JVD, no murmur Abdomen: non tender, soft, no organomegaly, no pulsatile mass, + abnormal bowel sounds (Silent bowel sounds) Extremities: normal range of motion, non-tender, normal inspection, no pedal edema, no calf tenderness, normal capillary refill, pelvis stable Neurologic/Psychiatric: ballroom dance instructor II-XII nml as tested, no motor/sensory deficits, alert, normal mood/affect, oriented x 3 Skin: normal color, warm/dry, no rash Lymphatic: no adenopathy Laboratory Results Last 24 Hours Test 09/14/17 18:13 09/14/17 23:43 09/15/17 05:08 09/15/17 05:48 Bedside Glucose 150 mg/dl 143 mg/dl 145 mg/dl White Blood Count 12.39 K/uL Red Blood Count 4.47 M/uL Hemoglobin 14.7 g/dL Hematocrit 43.0 % Mean Corpuscular Volume 96.2 fL Mean Corpuscular Hemoglobin 32.9 pg Mean Corpuscular Hemoglobin Concent 34.2 g/dl RDW Standard Deviation 48.2 fL RDW Coefficient of Variation 13.8 % Platelet Count 182 K/uL Mean Platelet Volume 10.0 fL Sodium Level 133 mmol/L Potassium Level mmol/L Chloride Level 100 mmol/L Carbon Dioxide Level 31 mmol/L Anion Gap 2.0 mmol/L Blood Urea Nitrogen 13 mg/dl Creatinine 1.06 mg/dl Est Creatinine Clear Calc Drug Dose 66.0 ml/min Estimated GFR () 80.3 Estimated GFR (Non- 69.3 BUN/Creatinine Ratio 12.3 Random Glucose 140 mg/dl Calcium Level 8.9 mg/dl Phosphorus Level 3.1 mg/dl Magnesium Level mg/dl Test 09/15/17 06:48 09/15/17 12:03 Potassium Level 4.2 mmol/L Magnesium Level 1.8 mg/dl Bedside Glucose 157 mg/dl Assessment and Plan 71 y/o M history of partial colectomy, recent SBO 06/17/17 admitted on August because of bowel obstruction Small bowel obstruction with progressive diffuse abdominal pain and nausea upon admission. A CT was obtained on arrival to the ER confirming recurrence of an SBO with the same transition point at the mid ventral abdomen. NGT placed , has been on NPO, IVF, antiemetics, analgesics provided Surgeon's input appreciated, patient had exploratory laparotomy with extensive lysis of adhesions Postop day 2, slowly improving, surgeon continue follow-up, Cont NG , CERTIFIED REGISTERED DENTAL ASSISTANT, encourage ambulation. Hx HTN, HPL, DM II; continue current care, hydralazine as needed for accelerated hypertension by IV, insulin sliding scale for elevated blood glucose, which is better Follow-up tomorrow morning lab Full code - Heparin prophylaxis Discussed with patient answered all questions Continued [facility] stay due to: multiple IV medications needed Discharge planning: uncertain
[2017-09-15] MEDS: ONDANSETRON INJ 2 MG/ML 2 ML VIAL IV PRN (19:19)
[2017-09-15] MEDS ORDERED: NURSING VERBAL MED ORDER ONE (22:30)
[2017-09-15 23:17] VITALS: BP 136/86; PULSE 116; TEMP 36.7; O2SAT 95
[2017-09-16] VITALS (7 sets, daily range): BP systolic 109–144; BP diastolic 60–90; PULSE 88–104; TEMP 36.4–37.7; O2SAT 90–98
[2017-09-16] MEDS: SODIUM CHLOR 0.45% + 20MEQ KCL 1,000 ML IV SCH ×3 (00:24→23:28)
[2017-09-16] MEDS: CEFOXITIN IV 1,000 MG in DEXTROSE 5% 50ML 50 ML IV SCH ×5 (00:24→23:29)
[2017-09-16] MEDS: HEPARIN SOD 5000 UNIT/0.5 ML CARP SQ SCH ×4 (00:28→23:39)
[2017-09-16] MEDS ORDERED: CALCIUM CARBONATE 500 MG CHEWABLE PO PRN (03:15)
[2017-09-16] MEDS: INSULIN ASPART 100 UNITS/ML 3 ML PEN SC SCH ×5 (05:19→23:39)
--- NOTE | 2017-09-16 06:43 | Surgery Progress Note ---
Surgery Progress Note Date of Service Sep 16, 2017. Subjective Post OP Day: 3 + feeling well, + complaints (Some mild heartburn last evening, resolved.), + ambulating, + pain controlled, + diet (NPO except meds), No bowel movement, No flatus, No nausea, No vomiting Objective Vital Signs: Date Time Temp Pulse Resp B/P (MAP) Pulse Ox O2 Delivery O2 Flow Rate FiO2 09/16/17 03:24 37.1 93 16 124/84 (97) 96 Room Air 09/16/17 00:20 Room Air 09/15/17 23:17 36.7 116 16 136/86 (103) 95 Room Air 09/15/17 16:20 Room Air 09/15/17 15:52 36.6 92 18 137/87 (104) 95 Room Air 09/15/17 11:30 36.6 93 16 139/90 (106) 96 Room Air 09/15/17 07:20 Room Air 09/15/17 07:05 36.7 81 16 119/84 (96) 95 Room Air Physical Exam: CARL drainage (scant, serosang), nasogastric drainage (340 ml yesterday, 100ml output so far today.) General Appearance: WD/WN, no apparent distress Head: normocephalic, atraumatic Respiratory/Chest: no respiratory distress, no accessory muscle use Abdomen: soft, no organomegaly, + distended (mild), + tenderness (incisional) Incision(s): clean, dry, intact, no erythema, drainage (minimal into dressing) Laboratory Results: Results Past 24 Hours Test 09/15/17 06:48 09/15/17 12:03 09/15/17 17:54 09/16/17 00:01 Range/Units Potassium Level 4.2 3.5-5.1 mmol/L Magnesium Level 1.8 1.8-2.4 mg/dl Bedside Glucose 157 173 143 70-99 mg/dl Test 09/16/17 05:18 Range/Units Bedside Glucose 143 70-99 mg/dl Assessment & Plan 09/15/17- s/p Laparotomy, Extensive Lysis of Adhesions, No resection with Dr. Maloney on 09/13/17 Doing well, pain improved. Abdomen soft, mildly distended. Incisions healing well. NPO except meds, no N/V. Still no flatus or BM. Ambulating NGT in place - still decent output this AM, keep for now. Possibly clamp and pull w/ trial of clears later today. 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 Patient encouraged to limit use for eventual transition to PO analgesics. Keep CARL and Blak[place] for now. Continue to ambulate as tolerated. Awaiting bowel function. Will discuss findings with Dr. Roberson. Please contact with questions or concerns.
[2017-09-16] MEDS: HYDROmorphone HCL 0.5MG/ML 50 ML CASSETTE IV PRN ×3 (06:48→23:16)
[2017-09-16 08:24] LABS: CREATININE 1.01 mg/dl (0.60-1.40); PHOSPHORUS 3.3 mg/dl (2.5-4.9)
[2017-09-16] MEDS: FLUTICASONE PROPIONATE NA SPR 16 GM BTL SCH ×2 (09:00→21:00)
--- NOTE | 2017-09-16 10:07 | Progress Note ---
Subjective Date of Service: Sep 16, 2017. Subjective Pt evaluation today including: conversation w/ patient, physical exam, chart review, lab review, review of studies, conversation w/ warehouse consultant, review of inpatient medication list still on NGT, with out put, has been up and walk, but has not passing gas yet..no n/v, no f/c Problem List Medical Problems: (1) Bursitis of right hip Status: Acute (2) Herniated disc Status: Acute (3) Lumbar radiculopathy Status: Acute (4) Right hip pain Status: Acute (5) Sialoadenitis of submandibular gland Status: Acute Review of Systems Constitutional: No fever, No chills, No sweats, No weight loss, No weakness, No fatigue, No problem reported Eyes: No worsening of vision, No eye pain, No redness, No discharge, No diplopia ENT: No hearing loss, No unusual epistaxis, No nasal symptoms, No sore throat, No tinnitus, No dental problems, No trouble swallowing Respiratory: No cough, No sputum, No wheezing, No shortness of breath, No dyspnea on exertion, No dyspnea at rest, No hemoptysis Cardiac: No chest pain, No orthopnea, No PND, No edema, No claudication, No palpitations Abdomen: No pain, No nausea, No vomiting, No diarrhea, No constipation Musculoskeletal: No joint pain, No muscle pain, No swelling, No calf pain Male : No dysuria, No urinary frequency, No incontinence, No nocturia more than once/night, No slowing stream, No hematuria Neurologic: No memory loss, No paralysis, No weakness, No numbness/tingling, No vertigo, No balance problems Psychiatric: No depression symptoms, No anhedonism, No anxiety, No insomnia, No substance abuse Heme: No abnormal bleeding/bruising, No clotting problems, No swollen lymph nodes, No night sweats Endo: No fatigue, No excessive thirst, No excessive urination Skin: No rash, No itch, No new/changing skin lesions, No color change, No bleeding Objective Vital Signs Date Time Temp Pulse Resp B/P (MAP) Pulse Ox O2 Delivery O2 Flow Rate FiO2 09/16/17 07:40 36.6 88 18 131/83 (99) 97 Room Air 09/16/17 07:20 Room Air 09/16/17 03:24 37.1 93 16 124/84 (97) 96 Room Air 09/16/17 00:20 Room Air 09/15/17 23:17 36.7 116 16 136/86 (103) 95 Room Air 09/15/17 16:20 Room Air 09/15/17 15:52 36.6 92 18 137/87 (104) 95 Room Air 09/15/17 11:30 36.6 93 16 139/90 (106) 96 Room Air Physical Exam General Appearance: WD/WN, no apparent distress, + pertinent finding (kendall, NGT in place, continue intermittent suctioning) Eyes: normal inspection, PERRL, EOMI, sclerae normal ENT: normal ENT inspection, hearing grossly normal, pharynx normal Neck: supple, no adenopathy, thyroid normal, no JVD, no carotid bruits, trachea midline Respiratory/Chest: chest non-tender, lungs clear, normal breath sounds, no respiratory distress, no accessory muscle use, + decreased breath sounds Cardiovascular: regular rate, rhythm, no edema, no gallop, no JVD, no murmur Abdomen: non tender, soft, no organomegaly, no pulsatile mass, + abnormal bowel sounds (silent BS) Extremities: normal range of motion, non-tender, normal inspection, no pedal edema, no calf tenderness, normal capillary refill, pelvis stable Neurologic/Psychiatric: core cutter II-XII nml as tested, no motor/sensory deficits, alert, normal mood/affect, oriented x 3 Skin: normal color, warm/dry, no rash Lymphatic: no adenopathy Laboratory Results Last 24 Hours Test 09/15/17 12:03 09/15/17 17:54 09/16/17 00:01 09/16/17 05:18 Bedside Glucose 157 mg/dl 173 mg/dl 143 mg/dl 143 mg/dl Test 09/16/17 07:50 09/16/17 09:57 Sodium Level 133 mmol/L Potassium Level mmol/L Chloride Level 100 mmol/L Carbon Dioxide Level 29 mmol/L Anion Gap 4.0 mmol/L Blood Urea Nitrogen 14 mg/dl Creatinine 1.01 mg/dl Est Creatinine Clear Calc Drug Dose 69.3 ml/min Estimated GFR () 85.1 Estimated GFR (Non- 73.4 BUN/Creatinine Ratio 13.4 Random Glucose 134 mg/dl Calcium Level 9.0 mg/dl Phosphorus Level 3.3 mg/dl Magnesium Level mg/dl Assessment and Plan 71 y/o M history of partial colectomy, recent SBO 06/17/17 admitted on August because of bowel obstruction, s/p t had exploratory laparotomy with extensive lysis of adhesions Small bowel obstruction with progressive diffuse abdominal pain and nausea upon admission. A CT was obtained on arrival to the ER confirming recurrence of an SBO with the same transition point at the mid ventral abdomen. 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 Hx HTN, HPL, DM II; stable, continue current care, hydralazine as needed for accelerated hypertension by IV, insulin sliding scale for elevated blood glucose, which is better Follow-up tomorrow morning lab Full code - Heparin prophylaxis Discussed with patient answered all questions Continued [facility] stay due to: multiple IV medications needed Discharge planning: uncertain
[2017-09-16 10:23] LABS: POTASSIUM 4.1 mmol/L (3.5-5.1)
[2017-09-16] MEDS: PANTOprazole INJ 40 MG in SYRINGE 0 ML IV SCH (10:52)
[2017-09-16] MEDS ORDERED: MAGNESIUM SULFATE 1GM / D5W 100 ML IV ONE (15:30)
[2017-09-16] MEDS: SODIUM CHLORIDE 0.9% 1000ML 1,000 ML IV SCH (16:00)
[2017-09-16] MEDS: RANITIDINE HCL 150 MG TAB PO PRN (19:36)
[2017-09-16] MEDS ORDERED: NURSING VERBAL MED ORDER ONE (21:45)
[2017-09-17 03:17] VITALS: BP 127/87; PULSE 100; TEMP 36.8; O2SAT 96
[2017-09-17] MEDS: INSULIN ASPART 100 UNITS/ML 3 ML PEN SC SCH ×4 (05:57→23:58)
[2017-09-17] MEDS: CEFOXITIN IV 1,000 MG in DEXTROSE 5% 50ML 50 ML IV SCH ×3 (06:04→17:54)
[2017-09-17 06:19] LABS: HEMATOCRIT 40.1 % (42-52); HEMOGLOBIN 14.4 g/dL (14.0-18.0); MEAN CELL VOLUME 93.9 fL (80-100); MEAN CORPUSCULAR HEMOGLOBIN 33.7 pg (25-34); MEAN CORPUSCULAR HGB CONC 35.9 g/dl (32-36); MEAN PLATELET VOLUME 10.3 fL (7.4-10.4); PLATELET COUNT 205 K/uL (130-400); RED CELL DISTRIBUTION WIDTH CV 13.7 % (11.5-14.5); RED CELL DISTRIBUTION WIDTH SD 46.4 fL (36.4-46.3); WHITE BLOOD COUNT 13.21 K/uL (4.8-10.8)
[2017-09-17] MEDS ORDERED: DEXTROSE 10% 1,000 ML IV PRN (06:25)
[2017-09-17] MEDS ORDERED: TPN/PPN CONSULT PHARMACY PRN (06:30)
--- NOTE | 2017-09-17 06:36 | Surgery Progress Note ---
Surgery Progress Note Date of Service Sep 17, 2017. Subjective NG , norman in place no flatus yet, NG output 100/shift Objective Vital Signs: Date Time Temp Pulse Resp B/P (MAP) Pulse Ox O2 Delivery O2 Flow Rate FiO2 09/17/17 03:17 36.8 100 16 127/87 (100) 96 Room Air 09/16/17 23:20 Room Air 09/16/17 23:00 36.6 97 16 119/83 (95) 96 Room Air 09/16/17 19:15 36.4 91 16 141/88 (105) 98 Room Air 09/16/17 15:47 Room Air 09/16/17 15:21 36.6 98 18 141/90 (107) 92 Room Air 09/16/17 07:40 36.6 88 18 131/83 (99) 97 Room Air 09/16/17 07:20 Room Air General Appearance: no apparent distress Respiratory/Chest: no respiratory distress Abdomen: + distended (decreased bowel sounds) Incision(s): intact Laboratory Results: Results Past 24 Hours Test 09/16/17 07:50 09/16/17 09:57 09/16/17 11:57 09/16/17 18:12 Range/Units Sodium Level 133 136-145 mmol/L Potassium Level 4.1 3.5-5.1 mmol/L Chloride Level 100 98-107 mmol/L Carbon Dioxide Level 29 21-32 mmol/L Anion Gap 4.0 3-11 mmol/L Blood Urea Nitrogen 14 7-18 mg/dl Creatinine 1.01 0.60-1.40 mg/dl Est Creatinine Clear Calc Drug Dose 69.3 ml/min Estimated GFR () 85.1 Estimated GFR (Non- 73.4 BUN/Creatinine Ratio 13.4 10-20 Random Glucose 134 70-99 mg/dl Calcium Level 9.0 8.5-10.1 mg/dl Phosphorus Level 3.3 2.5-4.9 mg/dl Magnesium Level 1.7 1.8-2.4 mg/dl Bedside Glucose 142 159 70-99 mg/dl Test 09/16/17 23:38 09/17/17 05:50 09/17/17 05:53 Range/Units Bedside Glucose 142 141 70-99 mg/dl White Blood Count 13.21 4.8-10.8 K/uL Red Blood Count 4.27 4.7-6.1 M/uL Hemoglobin 14.4 14.0-18.0 g/dL Hematocrit 40.1 42-52 % Mean Corpuscular Volume 93.9 80-100 fL Mean Corpuscular Hemoglobin 33.7 25-34 pg Mean Corpuscular Hemoglobin Concent 35.9 32-36 g/dl RDW Standard Deviation 46.4 36.4-46.3 fL RDW Coefficient of Variation 13.7 11.5-14.5 % Platelet Count 205 130-400 K/uL Mean Platelet Volume 10.3 7.4-10.4 fL Assessment & Plan 09/17/17- probable ileus- expected with diffuse adhesions- order PPN order picc line for Tpn, clamp NG, d/c norman, add reglan cont ambulation- Tpn should help protein status 09/14/17- s/p laparotomy , extensive lysis of adhesions- no resection. overall stable- good urine output, NG decreased- less irritation. has subcut austin and pelvic CARL drains. Cont NG , DIRECTOR OF ARCHIVES encourage ambulation. Concern for ileus. Dr Roberson covering over weekend 09/13/17- plan to proceed with abdominal exploration for small bowel obstruction later today- cont current mgt- add atbx 09/12/17- adm with recurrent sbo- CT with similar transition point as last adm 2017. significant NG output- suspect adhesions from prior surgery. Discussing with pt possible need for abd exploration/ lysis of adhesions, possible resection. Will check back with him later today. 09/14/17- s/p laparotomy , extensive lysis of adhesions- no resection. overall stable- good urine output, NG decreased- less irritation. has subcut austin and pelvic CARL drains. Cont NG , DIRECTOR OF ARCHIVES encourage ambulation. Concern for ileus. Dr Roberson covering over weekend 09/13/17- plan to proceed with abdominal exploration for small bowel obstruction later today- cont current mgt- add atbx 09/12/17- adm with recurrent sbo- CT with similar transition point as last adm 2017. significant NG output- suspect adhesions from prior surgery. Discussing with pt possible need for abd exploration/ lysis of adhesions, possible resection. Will check back with him later today.
[2017-09-17] MEDS: METOCLOPRAMIDE HCL INJ 5 MG/ML 2 ML VIAL IV SCH ×3 (06:38→17:55)
[2017-09-17 06:52] LABS: CALCIUM 9.1 mg/dl (8.5-10.1); CREATININE 0.95 mg/dl (0.60-1.40); PHOSPHORUS 3.3 mg/dl (2.5-4.9); POTASSIUM 4.5 mmol/L (3.5-5.1)
[2017-09-17 07:45] VITALS: BP 129/80; PULSE 98; TEMP 36.6; O2SAT 98
[2017-09-17] MEDS: FLUTICASONE PROPIONATE NA SPR 16 GM BTL SCH ×2 (08:05→20:26)
[2017-09-17] MEDS: HEPARIN SOD 5000 UNIT/0.5 ML CARP SQ SCH ×2 (08:07→15:59)
--- NOTE | 2017-09-17 09:13 | Pharmacy Progress Note ---
Parenteral Nutrition Consult Date of Service Sep 17, 2017. [facility] was consulted on 09/17/17 to manage parenteral nutrition orders for this patient. Subjective The patient is currently on day 1 of central parenteral nutrition for SBO s/p laparotomy, lysis of adhesions with probable ileus (NPO x 7 days). Objective Height (Feet): 5 Height (Inches): 7.00 Weight (Kilograms): 88.800 Diet: NPO Intake & Output (Last 72 Hr): 09/16/17 09/17/17 09/18/17 08:00 08:00 08:00 Intake Total 2336 ml 2483 ml Output Total 1693 ml 1700 ml Balance 643 ml 783 ml Laboratory Data (Last 24 Hr): Test 09/16/17 09:57 09/17/17 05:53 Magnesium Level 1.7 mg/dl (1.8-2.4) 1.9 mg/dl (1.8-2.4) Potassium Level 4.1 mmol/L (3.5-5.1) 4.5 mmol/L (3.5-5.1) Blood Urea Nitrogen 15 mg/dl (7-18) Calcium Level 9.1 mg/dl (8.5-10.1) Carbon Dioxide Level 22 mmol/L (21-32) Chloride Level 99 mmol/L (98-107) Creatinine 0.95 mg/dl (0.60-1.40) Phosphorus Level 3.3 mg/dl (2.5-4.9) Random Glucose 134 mg/dl (70-99) Sodium Level 132 mmol/L (136-145) Nutrition Assessment Please refer to the Notes section of the EMR for the most recent electron tube assembler note. Plan For day 1 of PN administration, the following will be ordered: Macronutrients Amino acids 100 grams/day Dextrose 100 grams/day Lipids 0 grams/day Micronutrients Combined electrolytes 20 mL - contains 35 mEq Na, 20 meq K, 4.5 mEq Ca, 5 mEq Mg , 35 mEq Cl, 29.5 mEq acetate per 20 mL Sodium phosphate 24 MMol Potassium chloride 20 mEq Magnesium sulfate 4.06 meq Multivitamins 10 mL Trace Elements 1 mL Additional additives: regular insulin 10 units, folic acid 1 mg, thiamine 100 mg Total volume 2000 mL to be infused over 24 hrs will provide 740 kcal/day Patient with h/o of T2DM. Home anti-diabetic medication is on hold. Fasting BSG is already elevated, therefore 10 units of regular insulin was added to TPN. Additional potassium and phosphate was also added to solution t refeeding syndrome. Labs, as indicated, will be ordered per protocol Pharmacy will continue to follow and adjust parenteral nutrition orders on a daily basis. Thank you for allowing us to participate in the care of this patient.
[2017-09-17 10:50] VITALS: BP 142/89; PULSE 98; O2SAT 98
[2017-09-17] MEDS: SODIUM CHLOR 0.45% + 20MEQ KCL 1,000 ML IV SCH (11:17)
[2017-09-17] MEDS: PANTOprazole INJ 40 MG in SYRINGE 0 ML IV SCH (11:18)
[2017-09-17] MEDS: HYDROmorphone HCL 0.5MG/ML 50 ML CASSETTE IV PRN ×2 (14:55→23:31)
[2017-09-17] MEDS ORDERED: CUSTOM PERIPHERAL PN 1 BAG IV SCH (16:00)
[2017-09-17] MEDS: SODIUM CHLORIDE 0.9% 1000ML 1,000 ML IV SCH (16:30)
--- NOTE | 2017-09-17 18:26 | Progress Note ---
Subjective Date of Service: Sep 17, 2017. Subjective known to me from prior admission chart reviewed, visited multiple times but pt sleeping comfortably full HPI and ROS not obtainable Problem List Medical Problems: (1) Bursitis of right hip Status: Acute (2) Herniated disc Status: Acute (3) Lumbar radiculopathy Status: Acute (4) Right hip pain Status: Acute (5) Sialoadenitis of submandibular gland Status: Acute Objective Vital Signs Date Time Temp Pulse Resp B/P (MAP) Pulse Ox O2 Delivery O2 Flow Rate FiO2 09/17/17 10:50 98 16 142/89 (106) 98 Room Air 09/17/17 07:50 Room Air 09/17/17 07:45 36.6 98 18 129/80 (96) 98 Room Air 09/17/17 03:17 36.8 100 16 127/87 (100) 96 Room Air 09/16/17 23:20 Room Air 09/16/17 23:00 36.6 97 16 119/83 (95) 96 Room Air 09/16/17 19:15 36.4 91 16 141/88 (105) 98 Room Air Physical Exam General Appearance: no apparent distress Neck: trachea midline Respiratory/Chest: no respiratory distress, no accessory muscle use Neurologic/Psychiatric: promotions representative II-XII nml as tested (no focal deficits at rest) Skin: normal color Laboratory Results Last 24 Hours Test 09/16/17 23:38 09/17/17 05:50 09/17/17 05:53 09/17/17 17:55 Bedside Glucose 142 mg/dl 141 mg/dl 133 mg/dl White Blood Count 13.21 K/uL Red Blood Count 4.27 M/uL Hemoglobin 14.4 g/dL Hematocrit 40.1 % Mean Corpuscular Volume 93.9 fL Mean Corpuscular Hemoglobin 33.7 pg Mean Corpuscular Hemoglobin Concent 35.9 g/dl RDW Standard Deviation 46.4 fL RDW Coefficient of Variation 13.7 % Platelet Count 205 K/uL Mean Platelet Volume 10.3 fL Sodium Level 132 mmol/L Potassium Level 4.5 mmol/L Chloride Level 99 mmol/L Carbon Dioxide Level 22 mmol/L Anion Gap 11.0 mmol/L Blood Urea Nitrogen 15 mg/dl Creatinine 0.95 mg/dl Est Creatinine Clear Calc Drug Dose 73.7 ml/min Estimated GFR () 91.7 Estimated GFR (Non- 79.1 BUN/Creatinine Ratio 15.9 Random Glucose 134 mg/dl Calcium Level 9.1 mg/dl Phosphorus Level 3.3 mg/dl Magnesium Level 1.9 mg/dl Assessment and Plan Small bowel obstruction with progressive diffuse abdominal pain and nausea upon admission. A CT was obtained on arrival to the ER confirming recurrence of an SBO with the same transition point at the mid ventral abdomen. NGT placed , has been on NPO, IVF, antiemetics, analgesics provided Surgeon's input appreciated, patient had exploratory laparotomy with extensive lysis of adhesions Postop day 4, appearing to have post op ileus to start TPN HTN, -reasonable control, continue to follow HPL -resume home meds once able to take PO DM2 - overall reasonable control continue to follow Full code - Heparin prophylaxis Continued [facility] stay due to: multiple IV medications needed Discharge planning: uncertain
[2017-09-17 19:14] VITALS: BP 151/82; PULSE 94; TEMP 37; O2SAT 95
[2017-09-17 23:07] VITALS: BP 126/82; PULSE 85; TEMP 37; O2SAT 96
[2017-09-18] MEDS: METOCLOPRAMIDE HCL INJ 5 MG/ML 2 ML VIAL IV SCH ×4 (00:03→19:28)
[2017-09-18] MEDS: CEFOXITIN IV 1,000 MG in DEXTROSE 5% 50ML 50 ML IV SCH ×2 (00:03→05:55)
[2017-09-18] MEDS: HEPARIN SOD 5000 UNIT/0.5 ML CARP SQ SCH ×3 (00:05→16:16)
[2017-09-18 04:00] VITALS: BP 123/83; PULSE 88; TEMP 36.4; O2SAT 93
[2017-09-18] MEDS: INSULIN ASPART 100 UNITS/ML 3 ML PEN SC SCH ×3 (06:00→18:00)
[2017-09-18] MEDS: HYDROmorphone HCL 0.5MG/ML 50 ML CASSETTE IV PRN ×4 (06:09→23:14)
[2017-09-18] MEDS ORDERED: DEXTROSE 10% 1,000 ML IV PRN (06:18)
--- NOTE | 2017-09-18 06:23 | Surgery Progress Note ---
Surgery Progress Note Date of Service September 18, 2017. Subjective minimal from NG- no bm or flatus yet on ppn via picc Objective Vital Signs: Date Time Temp Pulse Resp B/P (MAP) Pulse Ox O2 Delivery O2 Flow Rate FiO2 09/18/17 04:00 36.4 88 16 123/83 (96) 93 Room Air 09/18/17 00:00 Room Air 09/17/17 23:07 37.0 85 16 126/82 (97) 96 Room Air 09/17/17 19:14 37.0 94 18 151/82 (105) 95 Room Air 09/17/17 16:30 Room Air 09/17/17 10:50 98 16 142/89 (106) 98 Room Air 09/17/17 07:50 Room Air 09/17/17 07:45 36.6 98 18 129/80 (96) 98 Room Air General Appearance: no apparent distress Respiratory/Chest: no respiratory distress Abdomen: + distended (less distended) Incision(s): intact Laboratory Results: Results Past 24 Hours Test 09/17/17 11:58 09/17/17 17:55 09/17/17 23:54 09/18/17 05:50 Range/Units Bedside Glucose 131 133 143 70-99 mg/dl Test 09/18/17 06:04 Range/Units Bedside Glucose 157 70-99 mg/dl Assessment & Plan 09/18/17- will d/c NG, ice only, chg to Tpn via picc. check labs incl Mg/Phos. d/c austin in lower incision 09/17/17- probable ileus- expected with diffuse adhesions- order PPN order picc line for Tpn, clamp NG, d/c norman, add reglan cont ambulation- Tpn should help protein status 09/14/17- s/p laparotomy , extensive lysis of adhesions- no resection. overall stable- good urine output, NG decreased- less irritation. has subcut austin and pelvic CARL drains. Cont NG , CLINICAL TRIALS ASSISTANT encourage ambulation. Concern for ileus. Dr Roberson covering over weekend 09/13/17- plan to proceed with abdominal exploration for small bowel obstruction later today- cont current mgt- add atbx 09/12/17- adm with recurrent sbo- CT with similar transition point as last adm 2017. significant NG output- suspect adhesions from prior surgery. Discussing with pt possible need for abd exploration/ lysis of adhesions, possible resection. Will check back with him later today. 09/17/17- probable ileus- expected with diffuse adhesions- order PPN order picc line for Tpn, clamp NG, d/c norman, add reglan cont ambulation- Tpn should help protein status 09/14/17- s/p laparotomy , extensive lysis of adhesions- no resection. overall stable- good urine output, NG decreased- less irritation. has subcut austin and pelvic CARL drains. Cont NG , CLINICAL TRIALS ASSISTANT encourage ambulation. Concern for ileus. Dr Roberson covering over weekend 09/13/17- plan to proceed with abdominal exploration for small bowel obstruction later today- cont current mgt- add atbx 09/12/17- adm with recurrent sbo- CT with similar transition point as last adm 2017. significant NG output- suspect adhesions from prior surgery. Discussing with pt possible need for abd exploration/ lysis of adhesions, possible resection. Will check back with him later today.
[2017-09-18] MEDS ORDERED: TPN/PPN CONSULT PHARMACY PRN (06:30)
[2017-09-18] MEDS ORDERED: CUSTOM PERIPHERAL PN 1 BAG IV SCH (06:30)
[2017-09-18 06:38] LABS: CALCIUM 8.7 mg/dl (8.5-10.1); CREATININE 0.95 mg/dl (0.60-1.40); POTASSIUM 4.2 mmol/L (3.5-5.1)
[2017-09-18 06:44] LABS: PHOSPHORUS 3.6 mg/dl (2.5-4.9)
[2017-09-18] MEDS: FLUTICASONE PROPIONATE NA SPR 16 GM BTL SCH ×2 (08:03→21:01)
[2017-09-18 08:04] VITALS: BP 124/82; PULSE 79; TEMP 36.5; O2SAT 94
[2017-09-18 08:19] VITALS: O2SAT 94
[2017-09-18 11:28] VITALS: BP 124/88; PULSE 80; TEMP 36.5; O2SAT 97
[2017-09-18] MEDS: PANTOprazole INJ 40 MG in SYRINGE 0 ML IV SCH (11:28)
--- NOTE | 2017-09-18 13:52 | Clinical Documentation Query ---
CLINICAL DOCUMENTATION QUERY Dr. SALDANA, In your clinical opinion is this patient being managed for: (x ) malnutrition due to inability to eat due to impaired bowel status ( ) Not Agree ( ) Other explanation of clinical findings (Please Explain. If no explanation given, this would be considered a no response.) ( ) Unable to determine ( ) Need to Discuss (Please call CDS via extension or qliq. If no interaction occurs this is considered a no response.) The medical record reflects the following clinical findings, treatment, and risk factors. Clinical Indicators: 71 yo male presenting with SBO requiring lap with extensive lysis of adhesions. Pt has been NPO x 7 days due to expected post op ileus/ NGT/SBO. Prealbumin 17 Treatment: PICC placement, initiate TPN, dietary consult Risk Factors: impaired bowel status Please clarify and document your clinical opinion in the progress notes and discharge summary. Terms such as "probable", "suspected", "likely", "questionable", "possible", or "still to be ruled out" are acceptable. IF IN AGREEMENT, YOU MUST DOCUMENT ABOVE DIAGNOSTIC STATEMENT IN DAILY PROGRESS NOTES AND DISCHARGE SUMMARY. This document is not part of the patient's record. Thank You, Jessica Mathis RN [phone]
[2017-09-18 15:04] VITALS: BP 145/84; PULSE 81; TEMP 37; O2SAT 95
[2017-09-18] MEDS ORDERED: CUSTOM CENTRAL PN 1 BAG IV SCH (16:00)
[2017-09-18] MEDS: SODIUM CHLORIDE 0.9% 1000ML 1,000 ML IV SCH (16:20)
[2017-09-18 18:49] VITALS: BP 150/88; PULSE 93; TEMP 37; O2SAT 94
--- NOTE | 2017-09-18 19:00 | Progress Note ---
Subjective Date of Service: September 18, 2017. Subjective Pt evaluation today including: conversation w/ patient, physical exam, chart review, lab review, review of inpatient medication list feeling better still no flatus or BM but NGT out and no nausea/vomiting no other new complaints Problem List Medical Problems: (1) Bursitis of right hip Status: Acute (2) Herniated disc Status: Acute (3) Lumbar radiculopathy Status: Acute (4) Right hip pain Status: Acute (5) Sialoadenitis of submandibular gland Status: Acute Review of Systems all other ROS otherwise negative except for as above Objective Vital Signs Date Time Temp Pulse Resp B/P (MAP) Pulse Ox O2 Delivery O2 Flow Rate FiO2 09/18/17 18:49 37.0 93 20 150/88 (108) 94 Room Air 09/18/17 15:04 37.0 81 18 145/84 (104) 95 Room Air 09/18/17 11:28 36.5 80 24 124/88 (100) 97 Room Air 09/18/17 08:19 94 Room Air 09/18/17 08:04 36.5 79 16 124/82 (96) 94 Room Air 09/18/17 07:45 Room Air 09/18/17 04:00 36.4 88 16 123/83 (96) 93 Room Air 09/18/17 00:00 Room Air 09/17/17 23:07 37.0 85 16 126/82 (97) 96 Room Air 09/17/17 19:14 37.0 94 18 151/82 (105) 95 Room Air Physical Exam General Appearance: no apparent distress Eyes: EOMI ENT: hearing grossly normal Neck: trachea midline Respiratory/Chest: no respiratory distress, no accessory muscle use Abdomen: soft (moderately distended) Comments: ost/msk - L > R Tspine paraspinals high tone/decreased ROM - inhibitory pressure - improved Laboratory Results Last 24 Hours Test 09/17/17 23:54 09/18/17 05:50 09/18/17 06:04 09/18/17 08:12 Bedside Glucose 143 mg/dl 157 mg/dl 162 mg/dl Sodium Level 133 mmol/L Potassium Level 4.2 mmol/L Chloride Level 99 mmol/L Carbon Dioxide Level 28 mmol/L Anion Gap 6.0 mmol/L Blood Urea Nitrogen 19 mg/dl Creatinine 0.95 mg/dl Est Creatinine Clear Calc Drug Dose 73.6 ml/min Estimated GFR () 91.7 Estimated GFR (Non- 79.1 BUN/Creatinine Ratio 20.6 Random Glucose 163 mg/dl Calcium Level 8.7 mg/dl Phosphorus Level 3.6 mg/dl Magnesium Level 1.9 mg/dl C-Reactive Protein 4.29 mg/dl Prealbumin 17.0 mg/dl Triglycerides Level 203 mg/dl Assessment and Plan Small bowel obstruction with progressive diffuse abdominal pain and nausea upon admission. A CT was obtained on arrival to the ER confirming recurrence of an SBO with the same transition point at the mid ventral abdomen. Surgeon's input appreciated, patient had exploratory laparotomy with extensive lysis of adhesions Postop day 5, NGT out, appearing to have post op ileus TPN thoracic somatic dysfunction -OMT as above, studies in other abdominal surgery situations show hastened recovery of ileus with treatment of this kind HTN, -continues to show reasonable control, continue to follow HPL -resume home meds once PO intake resumes DM2 - shows reasonable control continue to follow Full code - Heparin prophylaxis Continued [facility] stay due to: multiple IV medications needed Discharge planning: uncertain
[2017-09-19] VITALS: BP 149/83; PULSE 78; TEMP 36.6; O2SAT 95
[2017-09-19 00:09] VITALS: BP 128/78; PULSE 88; TEMP 37; O2SAT 93
[2017-09-19] MEDS: HEPARIN SOD 5000 UNIT/0.5 ML CARP SQ SCH (00:09)
[2017-09-19] MEDS: METOCLOPRAMIDE HCL INJ 5 MG/ML 2 ML VIAL IV SCH ×5 (00:23→23:46)
[2017-09-19] MEDS ORDERED: HYDROmorphone INJ 2 MG/ML SYR/VIAL IV PRN (05:30)
[2017-09-19] MEDS ORDERED: HYDROmorphone INJ 0.5 MG/0.5 ML SYR IV PRN (05:30)
[2017-09-19] MEDS ORDERED: MINERAL OIL 30 ML UDC PO ONE (05:30)
[2017-09-19] MEDS: INSULIN ASPART 100 UNITS/ML 3 ML PEN SC SCH ×6 (06:00→21:00)
[2017-09-19] MEDS: HYDROCODONE/ACETAMIN 5/325MG TAB PO PRN ×4 (06:02→23:47)
--- NOTE | 2017-09-19 06:08 | Surgery Progress Note ---
Surgery Progress Note Date of Service September 19, 2017. Subjective passed some flatus- no emesis on Tpn, good urine output Objective Vital Signs: Date Time Temp Pulse Resp B/P (MAP) Pulse Ox O2 Delivery O2 Flow Rate FiO2 09/19/17 00:27 Room Air 09/19/17 00:09 37.0 88 16 128/78 (95) 93 09/18/17 20:00 Room Air 09/18/17 18:49 37.0 93 20 150/88 (108) 94 Room Air 09/18/17 15:04 37.0 81 18 145/84 (104) 95 Room Air 09/18/17 11:28 36.5 80 24 124/88 (100) 97 Room Air 09/18/17 08:19 94 Room Air 09/18/17 08:04 36.5 79 16 124/82 (96) 94 Room Air 09/18/17 07:45 Room Air General Appearance: no apparent distress Respiratory/Chest: no respiratory distress Abdomen: + distended (some bowel sounds) Incision(s): intact Laboratory Results: Results Past 24 Hours Test 09/18/17 08:12 09/18/17 12:01 09/18/17 17:58 09/19/17 00:05 Range/Units Bedside Glucose 162 139 158 142 70-99 mg/dl Test 09/19/17 05:39 Range/Units Assessment & Plan 09/19/17- begin clear liquids, continue Tpn 1-2 days add Senna syrup, dose of min oil. 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 check labs incl Mg/Phos. d/c austin in lower incision 09/17/17- probable ileus- expected with diffuse adhesions- order PPN order picc line for Tpn, clamp NG, d/c norman, add reglan cont ambulation- Tpn should help protein status 09/14/17- s/p laparotomy , extensive lysis of adhesions- no resection. overall stable- good urine output, NG decreased- less irritation. has subcut austin and pelvic CARL drains. Cont NG , CROP DUSTER HELPER encourage ambulation. Concern for ileus. Dr Roberson covering over weekend 09/13/17- plan to proceed with abdominal exploration for small bowel obstruction later today- cont current mgt- add atbx 09/12/17- adm with recurrent sbo- CT with similar transition point as last adm 2017. significant NG output- suspect adhesions from prior surgery. Discussing with pt possible need for abd exploration/ lysis of adhesions, possible resection. Will check back with him later today. 09/18/17- will d/c NG, ice only, chg to Tpn via picc. check labs incl Mg/Phos. d/c austin in lower incision 09/17/17- probable ileus- expected with diffuse adhesions- order PPN order picc line for Tpn, clamp NG, d/c norman, add reglan cont ambulation- Tpn should help protein status 09/14/17- s/p laparotomy , extensive lysis of adhesions- no resection. overall stable- good urine output, NG decreased- less irritation. has subcut austin and pelvic CARL drains. Cont NG , CROP DUSTER HELPER encourage ambulation. Concern for ileus. Dr Roberson covering over weekend 09/13/17- plan to proceed with abdominal exploration for small bowel obstruction later today- cont current mgt- add atbx 09/12/17- adm with recurrent sbo- CT with similar transition point as last adm 2017. significant NG output- suspect adhesions from prior surgery. Discussing with pt possible need for abd exploration/ lysis of adhesions, possible resection. Will check back with him later today.
[2017-09-19 06:18] LABS: CALCIUM 8.7 mg/dl (8.5-10.1); CREATININE 0.88 mg/dl (0.60-1.40); POTASSIUM 4.2 mmol/L (3.5-5.1)
[2017-09-19 06:23] LABS: PHOSPHORUS 2.8 mg/dl (2.5-4.9)
[2017-09-19] MEDS ORDERED: NURSING VERBAL MED ORDER ONE (07:00)
[2017-09-19 07:19] VITALS: BP 143/89; PULSE 80; TEMP 36.6; O2SAT 96
[2017-09-19] MEDS: FLUTICASONE PROPIONATE NA SPR 16 GM BTL SCH ×2 (08:30→19:11)
[2017-09-19] MEDS: SENNA 8.8 MG/5 ML UDP PO SCH ×2 (08:31→21:26)
[2017-09-19] MEDS: ENOXAPARIN 40 MG/0.4 ML SYR SQ SCH (08:32)
[2017-09-19] MEDS: PANTOprazole INJ 40 MG in SYRINGE 0 ML IV SCH (11:07)
[2017-09-19 15:02] VITALS: BP 150/92; PULSE 84; TEMP 36.5; O2SAT 96
[2017-09-19] MEDS ORDERED: CUSTOM CENTRAL PN 1 BAG IV SCH (16:00)
--- NOTE | 2017-09-19 19:08 | Progress Note ---
Subjective Date of Service: September 19, 2017. Subjective sleeping comfortably no new issues have arisen surgical input appreciated Problem List Medical Problems: (1) Bursitis of right hip Status: Acute (2) Herniated disc Status: Acute (3) Lumbar radiculopathy Status: Acute (4) Right hip pain Status: Acute (5) Sialoadenitis of submandibular gland Status: Acute Objective Vital Signs Date Time Temp Pulse Resp B/P (MAP) Pulse Ox O2 Delivery O2 Flow Rate FiO2 09/19/17 15:20 Room Air 09/19/17 15:02 36.5 84 18 150/92 (111) 96 Room Air 09/19/17 07:45 Room Air 09/19/17 07:19 36.6 80 18 143/89 (107) 96 Room Air 09/19/17 00:27 Room Air 09/19/17 00:09 37.0 88 16 128/78 (95) 93 09/18/17 20:00 Room Air Physical Exam General Appearance: no apparent distress Neck: trachea midline Respiratory/Chest: no respiratory distress, no accessory muscle use Neurologic/Psychiatric: head of precision targeting II-XII nml as tested (no focal deficits at rest) Skin: normal color Laboratory Results Last 24 Hours Test 09/19/17 00:05 09/19/17 05:39 09/19/17 08:12 09/19/17 12:18 Bedside Glucose 142 mg/dl 155 mg/dl 155 mg/dl Sodium Level 136 mmol/L Potassium Level 4.2 mmol/L Chloride Level 103 mmol/L Carbon Dioxide Level 28 mmol/L Anion Gap 5.0 mmol/L Blood Urea Nitrogen 19 mg/dl Creatinine 0.88 mg/dl Est Creatinine Clear Calc Drug Dose 77.6 ml/min Estimated GFR () 98.8 Estimated GFR (Non- 85.2 BUN/Creatinine Ratio 21.9 Random Glucose 152 mg/dl Calcium Level 8.7 mg/dl Phosphorus Level 2.8 mg/dl Magnesium Level 2.0 mg/dl Test 09/19/17 16:59 Bedside Glucose 145 mg/dl Assessment and Plan Small bowel obstruction with progressive diffuse abdominal pain and nausea upon admission. A CT was obtained on arrival to the ER confirming recurrence of an SBO with the same transition point at the mid ventral abdomen. Surgeon's input appreciated, patient had exploratory laparotomy with extensive lysis of adhesions Postop day 6, NGT out, post op ileus resolving TPN HTN, -continues to show ok control, continue to follow HPL -resume home meds once PO intake resumes DM2 - control ok continue to follow Full code - Heparin prophylaxis Continued [facility] stay due to: multiple IV medications needed Discharge planning: uncertain
[2017-09-20 05:55] LABS: HEMATOCRIT 30.8 % (42-52); HEMOGLOBIN 10.6 g/dL (14.0-18.0); MEAN CELL VOLUME 95.7 fL (80-100); MEAN CORPUSCULAR HEMOGLOBIN 32.9 pg (25-34); MEAN CORPUSCULAR HGB CONC 34.4 g/dl (32-36); MEAN PLATELET VOLUME 9.4 fL (7.4-10.4); PLATELET COUNT 181 K/uL (130-400); RED CELL DISTRIBUTION WIDTH CV 14.2 % (11.5-14.5); RED CELL DISTRIBUTION WIDTH SD 48.6 fL (36.4-46.3); WHITE BLOOD COUNT 8.81 K/uL (4.8-10.8)
[2017-09-20] MEDS: METOCLOPRAMIDE HCL INJ 5 MG/ML 2 ML VIAL IV SCH ×4 (06:09→23:33)
[2017-09-20 06:23] LABS: CALCIUM 8.5 mg/dl (8.5-10.1); CREATININE 0.75 mg/dl (0.60-1.40); PHOSPHORUS 3.1 mg/dl (2.5-4.9)
--- NOTE | 2017-09-20 06:42 | Surgery Progress Note ---
Surgery Progress Note Date of Service September 20, 2017. Subjective passing flatus- some incisional pain from coughing tolerating clear liquids, very good urine output Objective Vital Signs: Date Time Temp Pulse Resp B/P (MAP) Pulse Ox O2 Delivery O2 Flow Rate FiO2 09/19/17 23:54 Room Air 09/19/17 15:20 Room Air 09/19/17 15:02 36.5 84 18 150/92 (111) 96 Room Air 09/19/17 07:45 Room Air 09/19/17 07:19 36.6 80 18 143/89 (107) 96 Room Air General Appearance: no apparent distress Respiratory/Chest: no respiratory distress Abdomen: + distended (not firm) Incision(s): intact Laboratory Results: Results Past 24 Hours Test 09/19/17 08:12 09/19/17 12:18 09/19/17 16:59 09/19/17 20:50 Range/Units Bedside Glucose 155 155 145 128 70-99 mg/dl Test 09/20/17 05:39 Range/Units White Blood Count 8.81 4.8-10.8 K/uL Red Blood Count 3.22 4.7-6.1 M/uL Hemoglobin 10.6 14.0-18.0 g/dL Hematocrit 30.8 42-52 % Mean Corpuscular Volume 95.7 80-100 fL Mean Corpuscular Hemoglobin 32.9 25-34 pg Mean Corpuscular Hemoglobin Concent 34.4 32-36 g/dl RDW Standard Deviation 48.6 36.4-46.3 fL RDW Coefficient of Variation 14.2 11.5-14.5 % Platelet Count 181 130-400 K/uL Mean Platelet Volume 9.4 7.4-10.4 fL Sodium Level 136 136-145 mmol/L Potassium Level 4.0 3.5-5.1 mmol/L Chloride Level 103 98-107 mmol/L Carbon Dioxide Level 28 21-32 mmol/L Anion Gap 5.0 3-11 mmol/L Blood Urea Nitrogen 20 7-18 mg/dl Creatinine 0.75 0.60-1.40 mg/dl Est Creatinine Clear Calc Drug Dose 91.1 ml/min Estimated GFR () 105.5 Estimated GFR (Non- 91.0 BUN/Creatinine Ratio 27.1 10-20 Random Glucose 135 70-99 mg/dl Calcium Level 8.5 8.5-10.1 mg/dl Phosphorus Level 3.1 2.5-4.9 mg/dl Assessment & Plan 09/20/17- will adv diet to Full liquids, cont Tpn but decrease volume. cont Senna syrup, min oil- no bowel movement yet 09/19/17- begin clear liquids, continue Tpn 1-2 days add Senna syrup, dose of min oil. 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 check labs incl Mg/Phos. d/c austin in lower incision 09/17/17- probable ileus- expected with diffuse adhesions- order PPN order picc line for Tpn, clamp NG, d/c norman, add reglan cont ambulation- Tpn should help protein status 09/14/17- s/p laparotomy , extensive lysis of adhesions- no resection. overall stable- good urine output, NG decreased- less irritation. has subcut austin and pelvic CARL drains. Cont NG , AIRPORT SALES AGENT encourage ambulation. Concern for ileus. Dr Roberson covering over weekend 09/13/17- plan to proceed with abdominal exploration for small bowel obstruction later today- cont current mgt- add atbx 09/12/17- adm with recurrent sbo- CT with similar transition point as last adm 2017. significant NG output- suspect adhesions from prior surgery. Discussing with pt possible need for abd exploration/ lysis of adhesions, possible resection. Will check back with him later today. 09/19/17- begin clear liquids, continue Tpn 1-2 days add Senna syrup, dose of min oil. 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 check labs incl Mg/Phos. d/c austin in lower incision 09/17/17- probable ileus- expected with diffuse adhesions- order PPN order picc line for Tpn, clamp NG, d/c norman, add reglan cont ambulation- Tpn should help protein status 09/14/17- s/p laparotomy , extensive lysis of adhesions- no resection. overall stable- good urine output, NG decreased- less irritation. has subcut austin and pelvic CARL drains. Cont NG , AIRPORT SALES AGENT encourage ambulation. Concern for ileus. Dr Roberson covering over weekend 09/13/17- plan to proceed with abdominal exploration for small bowel obstruction later today- cont current mgt- add atbx 09/12/17- adm with recurrent sbo- CT with similar transition point as last adm 2017. significant NG output- suspect adhesions from prior surgery. Discussing with pt possible need for abd exploration/ lysis of adhesions, possible resection. Will check back with him later today.
[2017-09-20 07:06] VITALS: BP 126/72; PULSE 83; TEMP 36.9; O2SAT 92
[2017-09-20] MEDS ORDERED: NURSING VERBAL MED ORDER ONE (07:15)
[2017-09-20] MEDS ORDERED: MINERAL OIL 30 ML UDC PO SCH (08:00)
[2017-09-20] MEDS: FLUTICASONE PROPIONATE NA SPR 16 GM BTL SCH ×2 (08:26→20:30)
[2017-09-20] MEDS: ENOXAPARIN 40 MG/0.4 ML SYR SQ SCH (08:28)
[2017-09-20] MEDS: SENNA 8.8 MG/5 ML UDP PO SCH ×2 (08:28→20:31)
[2017-09-20] MEDS: INSULIN ASPART 100 UNITS/ML 3 ML PEN SC SCH ×4 (08:55→20:23)
[2017-09-20] MEDS: PANTOprazole INJ 40 MG in SYRINGE 0 ML IV SCH (10:26)
[2017-09-20] MEDS: HYDROCODONE/ACETAMIN 5/325MG TAB PO PRN ×2 (11:39→23:35)
--- NOTE | 2017-09-20 12:16 | Pharmacy Progress Note ---
Parenteral Nutrition Consult Date of Service September 20, 2017. [facility] was consulted on 09/17 to manage parenteral nutrition orders for this patient. Subjective The patient is currently on day 3 of [facility] parenteral nutrition for SBO s/p laparotomy, lysis of adhesions with probable ileus (NPO x 7 days).. Objective Height (Feet): 5 Height (Inches): 7.00 Weight (Kilograms): 84.500 Diet: Diabetic Vascular Access: PICC Intake & Output (Last 72 Hr): 09/19/17 09/20/17 09/21/17 08:00 08:00 08:00 Intake Total 2656 ml 3306 ml Output Total 2425 ml 3050 ml Balance 231 ml 256 ml Laboratory Data (Last 24 Hr): Test 09/20/17 05:39 Blood Urea Nitrogen 20 mg/dl (7-18) Calcium Level 8.5 mg/dl (8.5-10.1) Carbon Dioxide Level 28 mmol/L (21-32) Chloride Level 103 mmol/L (98-107) Creatinine 0.75 mg/dl (0.60-1.40) Phosphorus Level 3.1 mg/dl (2.5-4.9) Potassium Level 4.0 mmol/L (3.5-5.1) Random Glucose 135 mg/dl (70-99) Sodium Level 136 mmol/L (136-145) Nutrition Assessment Please refer to the Notes section of the EMR for the most recent sap basis note. Assessment 09/20/17 * PO intake advanced further today to type 2 diabetes * Dr. Maloney entered orders this AM for PN to decrease to 75 cc/hr. Nurse decreased rate of current bag this AM. She was able to clarify for me that patient will continue on PN for at least next 24 hours. * Bag for tonight will be reduced to 1800 mL (75 cc/hr) and will decrease macronutrients proportionately Plan For day 4 of PN administration, the following will be ordered: Macronutrients Amino acids 100 grams/day Dextrose 135 grams/day Lipids 40 grams/day Micronutrients Sodium phosphate 30 MMol Sodium acetate 70 mEq Potassium chloride 60 mEq Magnesium sulfate 8.12 mEq Calcium gluconate 4.65 mEq Multivitamins 10 mL Trace Elements 1 mL Insulin 10 units Thiamine 100 mg Folic acid 1 mg Total volume 1800 mL to be infused over 24 hrs will provide 1242 kcal/day No labs ordered for tomorrow since PN will most likely be d/c'd Pharmacy will continue to follow and adjust parenteral nutrition orders on a daily basis. Thank you for allowing us to participate in the care of this patient.
[2017-09-20 15:05] VITALS: BP 118/78; PULSE 72; TEMP 36.3; O2SAT 98
[2017-09-20 15:20] VITALS: O2SAT 98
[2017-09-20] MEDS ORDERED: CUSTOM CENTRAL PN 1 BAG IV SCH (16:00)
--- NOTE | 2017-09-20 18:51 | Progress Note ---
Subjective Date of Service: September 20, 2017. Subjective Pt evaluation today including: conversation w/ patient, physical exam, chart review, lab review, review of inpatient medication list feeling a bit better taking liquids well thinks could tolerate full flatus but no bm no fevers no sob Problem List Medical Problems: (1) Bursitis of right hip Status: Acute (2) Herniated disc Status: Acute (3) Lumbar radiculopathy Status: Acute (4) Right hip pain Status: Acute (5) Sialoadenitis of submandibular gland Status: Acute Review of Systems all other ROS otherwise negative except for as above Objective Vital Signs Date Time Temp Pulse Resp B/P (MAP) Pulse Ox O2 Delivery O2 Flow Rate FiO2 09/20/17 15:20 98 Room Air 09/20/17 15:05 36.3 72 16 118/78 (91) 98 Room Air 09/20/17 07:15 Room Air 09/20/17 07:06 36.9 83 18 126/72 (90) 92 Room Air 09/19/17 23:54 Room Air Physical Exam General Appearance: no apparent distress Eyes: EOMI ENT: hearing grossly normal Neck: trachea midline Respiratory/Chest: no respiratory distress, no accessory muscle use Abdomen: soft, + tenderness (minimal no guarding or rebound) Neurologic/Psychiatric: style advisor II-XII nml as tested, alert, normal mood/affect Skin: normal color, warm/dry Laboratory Results Last 24 Hours Test 09/19/17 20:50 09/20/17 05:39 09/20/17 08:06 09/20/17 12:06 Bedside Glucose 128 mg/dl 134 mg/dl 129 mg/dl White Blood Count 8.81 K/uL Red Blood Count 3.22 M/uL Hemoglobin 10.6 g/dL Hematocrit 30.8 % Mean Corpuscular Volume 95.7 fL Mean Corpuscular Hemoglobin 32.9 pg Mean Corpuscular Hemoglobin Concent 34.4 g/dl RDW Standard Deviation 48.6 fL RDW Coefficient of Variation 14.2 % Platelet Count 181 K/uL Mean Platelet Volume 9.4 fL Sodium Level 136 mmol/L Potassium Level 4.0 mmol/L Chloride Level 103 mmol/L Carbon Dioxide Level 28 mmol/L Anion Gap 5.0 mmol/L Blood Urea Nitrogen 20 mg/dl Creatinine 0.75 mg/dl Est Creatinine Clear Calc Drug Dose 91.1 ml/min Estimated GFR () 105.5 Estimated GFR (Non- 91.0 BUN/Creatinine Ratio 27.1 Random Glucose 135 mg/dl Calcium Level 8.5 mg/dl Phosphorus Level 3.1 mg/dl Test 09/20/17 17:20 Bedside Glucose 114 mg/dl Assessment and Plan Small bowel obstruction with progressive diffuse abdominal pain and nausea upon admission. A CT was obtained on arrival to the ER confirming recurrence of an SBO with the same transition point at the mid ventral abdomen. Surgeon's input appreciated, patient had exploratory laparotomy with extensive lysis of adhesions Postop day 7, NGT out, post op ileus resolving, slowly advance diet TPN HTN, -continues to show reasonable control, continue to follow HPL -will resume home meds once PO intake resumes DM2 - control continues to be reasonable continue to follow Full code - Heparin prophylaxis
[2017-09-20 22:40] VITALS: BP 125/79; PULSE 73; TEMP 36.9; O2SAT 93
[2017-09-21] MEDS: METOCLOPRAMIDE HCL INJ 5 MG/ML 2 ML VIAL IV SCH ×4 (05:25→23:58)
--- NOTE | 2017-09-21 06:36 | Surgery Progress Note ---
Surgery Progress Note Date of Service September 21, 2017. Subjective no complaints some flatus- no bowel movement yet tolerating full liquids Objective Vital Signs: Date Time Temp Pulse Resp B/P (MAP) Pulse Ox O2 Delivery O2 Flow Rate FiO2 09/20/17 23:26 Room Air 09/20/17 22:40 36.9 73 16 125/79 (94) 93 Room Air 09/20/17 15:20 98 Room Air 09/20/17 15:05 36.3 72 16 118/78 (91) 98 Room Air 09/20/17 07:15 Room Air 09/20/17 07:06 36.9 83 18 126/72 (90) 92 Room Air General Appearance: no apparent distress Respiratory/Chest: no respiratory distress Abdomen: normal bowel sounds, soft Incision(s): intact Laboratory Results: Results Past 24 Hours Test 09/20/17 08:06 09/20/17 12:06 09/20/17 17:20 09/20/17 20:13 Range/Units Bedside Glucose 134 129 114 142 70-99 mg/dl Assessment & Plan 09/21/17- advance to low fiber diet, stop Tpn after current bag complete- walk- d/c when having bowel movements overall slow progress not unexpected w/ severe adhesions 09/20/17- will adv diet to Full liquids, cont Tpn but decrease volume. cont Senna syrup, min oil- no bowel movement yet 09/19/17- begin clear liquids, continue Tpn 1-2 days add Senna syrup, dose of min oil. 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 check labs incl Mg/Phos. d/c austin in lower incision 09/17/17- probable ileus- expected with diffuse adhesions- order PPN order picc line for Tpn, clamp NG, d/c norman, add reglan cont ambulation- Tpn should help protein status 09/14/17- s/p laparotomy , extensive lysis of adhesions- no resection. overall stable- good urine output, NG decreased- less irritation. has subcut austin and pelvic CARL drains. Cont NG , BUSINESS PROJECT MANAGER encourage ambulation. Concern for ileus. Dr Roberson covering over weekend 09/13/17- plan to proceed with abdominal exploration for small bowel obstruction later today- cont current mgt- add atbx 09/12/17- adm with recurrent sbo- CT with similar transition point as last adm 2017. significant NG output- suspect adhesions from prior surgery. Discussing with pt possible need for abd exploration/ lysis of adhesions, possible resection. Will check back with him later today. 09/20/17- will adv diet to Full liquids, cont Tpn but decrease volume. cont Senna syrup, min oil- no bowel movement yet 09/19/17- begin clear liquids, continue Tpn 1-2 days add Senna syrup, dose of min oil. 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 check labs incl Mg/Phos. d/c austin in lower incision 09/17/17- probable ileus- expected with diffuse adhesions- order PPN order picc line for Tpn, clamp NG, d/c norman, add reglan cont ambulation- Tpn should help protein status 09/14/17- s/p laparotomy , extensive lysis of adhesions- no resection. overall stable- good urine output, NG decreased- less irritation. has subcut austin and pelvic CARL drains. Cont NG , BUSINESS PROJECT MANAGER encourage ambulation. Concern for ileus. Dr Roebrson covering over weekend 09/13/17- plan to proceed with abdominal exploration for small bowel obstruction later today- cont current mgt- add atbx 09/12/17- adm with recurrent sbo- CT with similar transition point as last adm 2017. significant NG output- suspect adhesions from prior surgery. Discussing with pt possible need for abd exploration/ lysis of adhesions, possible resection. Will check back with him later today.
[2017-09-21 07:36] VITALS: BP 123/80; PULSE 74; TEMP 36.5; O2SAT 93
[2017-09-21] MEDS: INSULIN ASPART 100 UNITS/ML 3 ML PEN SC SCH ×4 (08:00→20:48)
[2017-09-21] MEDS: FLUTICASONE PROPIONATE NA SPR 16 GM BTL SCH ×2 (08:50→20:47)
[2017-09-21] MEDS: ENOXAPARIN 40 MG/0.4 ML SYR SQ SCH (08:52)
[2017-09-21] MEDS: SENNA 8.8 MG/5 ML UDP PO SCH (08:52)
[2017-09-21] MEDS: HYDROCODONE/ACETAMIN 5/325MG TAB PO PRN ×2 (11:02→20:50)
[2017-09-21] MEDS: PANTOprazole INJ 40 MG in SYRINGE 0 ML IV SCH (11:03)
[2017-09-21] MEDS ORDERED: HYDR-5688 PO (12:36)
--- NOTE | 2017-09-21 12:40 | Discharge Instructions ---
Discharge Instructions Date of Service September 21, 2017. Admission Reason for Admission: SBO Discharge Discharge Diagnosis / Problem: bowel obstruction Discharge Goals Goal(s): Decrease discomfort, Improve function, Improve disease control Activity Recommendations Activity Limitations: as noted below Lifting Limitations: no more than 25 pounds (for 4 weeks) Exercise/Sports Limitations: until after follow-up appointment May Resume Sexual Activity: when tolerated Shower/Bathe: tomorrow Driving or Machine Use: one week . Instructions / Follow-Up Instructions / Follow-Up SPECIAL CARE INSTRUCTIONS: * Cover incisions and change daily for comfort/drainage. * * may use Senokot S twice daily and decrease for loose bowel movements * May use ibuprofen for pain as tolerated. * Expect some swelling and bruising. Call your doctor if: * Temperature above 101 degrees * Pain not relieved by pain medicine ordered * There is increased drainage or redness from any incision * You have any unanswered questions or concerns [phone]. FOLLOW UP VISIT: If not already scheduled, please call the office for a follow-up visit. for next week- check up and some staple removal OFFICE PHONE NUMBER: Dr. Maloney Office Current Hospital Diet Patient's current hospital diet: Low Fiber Diet Discharge Diet Recommended Diet: Low Fiber Diet Procedures Procedures Performed: Laparotomy with extensive Lysis of adhesions Pending Studies Studies pending at discharge: no Laboratory Results Hemoglobin A1c Test 08/17/17 10:10 Range/Units Estimated Average Glucose 146 mg/dl Hemoglobin A1c 6.7 H 4.5-5.6 % Lipid Panel Test 09/18/17 05:50 Range/Units Triglycerides Level 203 H 0-150 mg/dl Medical Emergencies . Who to Call and When: Medical Emergencies: If at any time you feel your situation is an emergency, please call 911 immediately. . Non-Emergent Contact Non-Emergency issues call your: Primary Care Provider, Surgeon . "Provider Documentation" section prepared by Ray Maloney. .
[2017-09-21 15:00] VITALS: BP 133/60; PULSE 77; TEMP 36.3; O2SAT 98
[2017-09-21 15:30] VITALS: O2SAT 98
[2017-09-21] MEDS: DOCUSATE SODIUM/SENNA 50/8.6MG TAB PO SCH (20:47)
--- NOTE | 2017-09-21 21:04 | Progress Note ---
Subjective Date of Service: September 21, 2017. Subjective sleeping comfortably surgery input noted and appreciated Problem List Medical Problems: (1) Bursitis of right hip Status: Acute (2) Herniated disc Status: Acute (3) Lumbar radiculopathy Status: Acute (4) Right hip pain Status: Acute (5) Sialoadenitis of submandibular gland Status: Acute Objective Vital Signs Date Time Temp Pulse Resp B/P (MAP) Pulse Ox O2 Delivery O2 Flow Rate FiO2 09/21/17 15:30 98 Room Air 09/21/17 15:00 36.3 77 16 133/60 (84) 98 Room Air 09/21/17 08:00 Room Air 09/21/17 07:36 36.5 74 18 123/80 (94) 93 Room Air 09/20/17 23:26 Room Air 09/20/17 22:40 36.9 73 16 125/79 (94) 93 Room Air Physical Exam General Appearance: no apparent distress Eyes: EOMI Neck: trachea midline Respiratory/Chest: no respiratory distress, no accessory muscle use Neurologic/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 A CT was obtained on arrival to the ER confirming recurrence of an SBO with the same transition point at the mid ventral abdomen. Surgeon's input appreciated, patient had exploratory laparotomy with extensive lysis of adhesions Postop day 8, NGT out, post op ileus resolving, slowly advancing diet TPN HTN, -continues to show good control, continue to follow HPL -will resume home meds once PO intake resumes DM2 - control continues to be acceptable, continue to follow as current Full code - Heparin prophylaxis
[2017-09-21 23:18] VITALS: BP 143/91; PULSE 75; TEMP 36.6; O2SAT 95
[2017-09-22] MEDS: METOCLOPRAMIDE HCL INJ 5 MG/ML 2 ML VIAL IV SCH ×2 (06:15→12:25)
[2017-09-22 07:06] VITALS: BP 121/76; PULSE 82; TEMP 36.6; O2SAT 96
[2017-09-22] MEDS: ENOXAPARIN 40 MG/0.4 ML SYR SQ SCH (09:42)
[2017-09-22] MEDS: PANTOprazole INJ 40 MG in SYRINGE 0 ML IV SCH (09:42)
[2017-09-22] MEDS: DOCUSATE SODIUM/SENNA 50/8.6MG TAB PO SCH (09:42)
[2017-09-22] MEDS: FLUTICASONE PROPIONATE NA SPR 16 GM BTL SCH (09:42)
[2017-09-22] MEDS: INSULIN ASPART 100 UNITS/ML 3 ML PEN SC SCH ×2 (09:44→12:00)
--- NOTE | 2017-09-22 12:18 | Surgery Progress Note ---
Surgery Progress Note Date of Service September 22, 2017. Subjective + feeling well, + ambulating, + bowel movement, + pain controlled, + diet ( tolerating) Objective Vital Signs: Date Time Temp Pulse Resp B/P (MAP) Pulse Ox O2 Delivery O2 Flow Rate FiO2 09/22/17 08:15 Room Air 09/22/17 07:06 36.6 82 16 121/76 (91) 96 Room Air 09/22/17 00:03 Room Air 09/21/17 23:18 36.6 75 16 143/91 (108) 95 Room Air 09/21/17 15:30 98 Room Air 09/21/17 15:00 36.3 77 16 133/60 (84) 98 Room Air General Appearance: WD/WN, no apparent distress Respiratory/Chest: normal breath sounds Cardiovascular: regular rate, rhythm Abdomen: normal bowel sounds, non tender, non distended, soft Incision(s): clean, dry, intact Laboratory Results: Results Past 24 Hours Test 09/21/17 17:12 09/21/17 20:22 09/22/17 08:10 09/22/17 12:05 Range/Units Bedside Glucose 166 182 138 149 70-99 mg/dl Assessment & Plan s/p exp lap and HUDSON now with return of bowel function. Tolerating diet. Stable for discharge from medical standpoint.
[2017-09-22] MEDS: HYDROCODONE/ACETAMIN 5/325MG TAB PO PRN (12:34)
[2017-09-22 13:07] VITALS: BP 121/76; PULSE 82; TEMP 36.6; O2SAT 96
--- NOTE | 2017-09-22 19:00 | Discharge Summary ---
Discharge Summary Date of Service September 22, 2017. Discharge Summary Admission Date: Sep 11, 2017 at 20:46 Discharge Date: September 22, 2017 Discharge Disposition: Home Principal Diagnosis: SBO Immunizations: Have You Had Influenza Vaccine: No History of Tetanus Vaccine?: Yes History of Pneumococcal: Yes History of Hepatitis B Vaccine: No Procedures: lysis of adhesions Consultations: general surgery Medication Reconciliation New Medications: Hydrocodone/Acetaminophen 5MG/325MG ([place] 5MG/325MG) Tab 1-2 TABLET PO q 6 hrs PRN for Pain, #40 TAB PRN PAIN Continued Medications: Albuterol Sulfate (Proair Respiclick) 108 Mcg/Act Aer 2 PUFF INH Q4 PRN for SOB/Wheezing Aspirin (Aspirin Ec) 81 Mg Tab 81 MG PO HS Metformin HCl (Metformin HCl) 500 Mg Tab 500 MG PO BID Metoprolol Tartrate (Lopressor) (Lopressor) 25 Mg Tab 12.5 MG PO BID Oxycodone Hcl (Oxycodone Hcl) 5 Mg Cap 5-10 MG PO Q4 for Pain Pantoprazole (Protonix) 40 Mg Tab 40 MG PO Q2D Rosuvastatin Calcium (Rosuvastatin Calcium) 10 Mg Tab 10 MG PO QAM Discharge Exam Physical Exam: General Appearance: no apparent distress Eyes: EOMI ENT: hearing grossly normal Neck: trachea midline Respiratory/Chest: no respiratory distress, no accessory muscle use Extremities: normal inspection Neurologic/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 A CT was obtained on arrival to the ER confirming recurrence of an SBO with the same transition point at the mid ventral abdomen. Surgeon's input appreciated, patient had exploratory laparotomy with extensive lysis of adhesions Postop day 8, NGT out, post op ileus resolving, slowly advancing diet was on TPN due to acute malnutrition due to inability to eat due to impaired bowel status. now improving HTN, -continues to show good control, home on home meds HPL -home meds DM2 - discharge on home meds Full code - Heparin prophylaxis Total Time Spent: Less than 30 minutes This includes examination of the patient, discharge planning, medication reconciliation, and communication with other providers. Discharge Instructions Please refer to the electronic Patient Visit Report (Discharge Instructions) for additional information.
== END 2017-09-22 14:05 | disposition home or self-care (01) | DRG 336 ==
LOC: C.EDB 16:29 → C.MSN 20:46 → ENRESERV 20:54
PROVIDERS: ADMIT Internal Medicine; ATTEND Family Medicine
PROC: 3E0536Z Introduction of Nutritional Substance into Peripheral Artery, Percutaneous Approach (ICD-10-PCS; 2017-09-13)
PROC: 0DN80ZZ Release Small Intestine, Open Approach (ICD-10-PCS; principal; 2017-09-13 13:30)
PROC: 02HV33Z Insertion of Infusion Device into Superior Vena Cava, Percutaneous Approach (ICD-10-PCS; 2017-09-17)
DX: K56.609 Unspecified intestinal obstruction, unspecified as to partial versus complete obstruction (principal); E46 Unspecified protein-calorie malnutrition; M51.36 Other intervertebral disc degeneration, lumbar region; K56.7 Ileus, unspecified; I71.4 Abdominal aortic aneurysm, without rupture; E11.9 Type 2 diabetes mellitus without complications; M70.71 Other bursitis of hip, right hip; I10 Essential (primary) hypertension; E78.5 Hyperlipidemia, unspecified; Z79.84 Long term (current) use of oral hypoglycemic drugs; Z88.6 Allergy status to analgesic agent; Z88.8 Allergy status to other drugs, medicaments and biological substances; Z90.49 Acquired absence of other specified parts of digestive tract

== ENCOUNTER 2023-05-17 06:56 | Observation (INO) ==
[~2023-05-17 06:56] MED LIST changes: -ALBU18002 INH; -ASPI325T39 PO; +BUPIVACAINE 0.25% PF 30 ML VIAL ONE; -CPR500 PO; -DXY100 PO; -GLC500 PO; +LIDOCAINE 1% LOCAL 20 ML VIAL ONE; -METO25TA56 PO; -OXYC1CAP5 PO; -PANT40TA PO; -ROSU10TA35 PO; +VANCOMYCIN HCL 1000MG/20ML VIAL ONE; +WATER, STERILE FOR INJ 10 ML VIAL ONE
[2023-05-17] MEDS ORDERED: MIDAZOLAM HCL 5 MG/ML 1 ML VIAL ONE (07:41)
[2023-05-17] MEDS ORDERED: fentaNYL citrate PF 100 MCG/2 ML VIAL ONE (07:41)
[2023-05-17] MEDS ORDERED: ceFAZolin 330 MG/ML 1 GM VIAL ONE (07:41)
--- NOTE | 2023-05-17 07:51 | History & Physical Bridge Note ---
Date of Service May 17, 2023 History & Physical Bridge Note I have examined the patient, reviewed the History & Physical and in the interval since the performance of the History & Physical I have noted the following changes of clinical significance: no changes noted
--- NOTE | 2023-05-17 07:52 | Pre Anesthesia Assessment ---
Date of Service May 17, 2023 Pre Sedation Assessment Vital Signs Pulse Resp BP Pulse Ox O2 Del Method 05/17/23 07:18 82 14 120/83 98 Room Air Cardiovascular + regular rate and + regular rhythm Respiratory + respiratory effort normal Pre-Sedation Airway Assessment Smoking Status: Former smoker Hx Sleep Apnea: No Hx Difficult Intubation: No Short, Thick Neck: No Thyromental Distance: > or= 3.5 Finger Breadths Oral Cavity: + Dentures Mallampati Class: II ASA: ASA3 NPO Status Date of Last Intake of Fluids: 05/16/23 Time of Last Intake of Fluids: 22:00 Date of Last Intake of Solid Food: 05/16/23 Time of Last Intake of Solid Foods: 22:00 Procedure Planning Contraindications for Sedation: none Current Medications Reviewed: Yes Notes The planned sedation has been discussed with the patient. Informed Consent was obtained. I have identified the patient, determined the appropriateness of sedation and have assessed the patient immediately prior to the procedure. All medicine(s) and interventions are by my order.
[2023-05-17] MEDS ORDERED: oxyCODONE HCL IR 5 MG TAB (IMMEDIATE RELEASE) PO PRN (09:29)
--- NOTE | 2023-05-17 09:29 | Electrophysiology Report ---
Date of Service May 17, 2023 Electrophysiology Procedure Electrophysiology Procedure Report Procedure performed: Implantation of biventricular ICD with left bundle pacing lead Staff mobile ui developer: Nba Lim MD Indication: The patient is a 77-year-old gentleman with history of nonischemic cardiomyopathy. He is on guideline directed medical therapy. He has not suffered a myocardial infarction in the past 40 days. He did undergo recent coronary bypass grafting. He has anticipated longevity greater than 1 year. Employing shared decision-making and proprietary decision tool the patient was appraised of the risks and benefits as well as alternatives to the intended procedure. He elected to proceed. A biventricular device was selected as the patient is currently in sinus rhythm and has a left bundle branch block morphology on his EKG with a QRS duration greater than 150 ms. Procedure in detail: The patient was informed of the risks benefits and alternatives to the intended procedure and she wished to proceed. He was taken to the electrophysiology suite in a fasting state. A preoperative antibiotic had been administered. The patient was monitored electrocardiographically throughout today's procedure and conscious sedation was administered per protocol. The left upper pectoral area is prepped and draped in usual sterile fashion. This area was anesthetized using subcutaneous administration of a xylocaine solution. An incision was made at this site and carried down to the prepectoralis fascia using sharp dissection. Electrocautery was also employed for dissection as well as for hemostasis. A device pocket was fashioned tissues above the pectoralis muscle. Subsequent to this maneuver the left axillary vein was accessed using modified Seldinger technique. Sheath was placed over guidewire at the site [place] passage of the ICD lead to the right ventricular apex under fluoroscopic guidance. Adequate sensing and threshold parameters were obtained prior to active-fixation of this lead to the endocardial surface. The proximal portion of lead was then sutured to the prepectoralis fascia using nonabsorbable suture. A sheath was placed over another guidewire and use of the passage of a guiding catheter for mapping of the interventricular septum. His bundle potential was mapped in order to determine the area of best location of the septal pacing lead. Once an adequate location was identified the septal pacing lead was advanced into the interventricular septum and electrical cardiographic parameters were monitored. Once it was fixated the guiding sheath was removed. The proximal portion of lead was then sutured the prepectoralis fascia using nonabsorbable suture. A sheath was placed over the remaining guidewire and used to facilitate passage of the pacing lead to the right atrium under fluoroscopic guidance. Adequate sensing and threshold parameters were obtained prior to active-fixation's lead to the endocardial surface. The proximal portion of lead was then sutured to the prepectoralis fascia using nonabsorbable suture. The device pocket was irrigated with antibiotic solution. The leads were then attached to the device. The device and leads were then placed in the pocket and pocket was closed in 3 layers of absorbable suture. Steri-Strips and sterile dressing were applied. The device was tested noninvasively prior to conclusion the procedure. The patient tolerated procedure well there no immediate complications. Equipment used: New pulse generator: Wood [employer]iler [employer]. Model number: [id number] serial number [id number] Right atrial lead: Wood Piler [employer]tronic. Model number: [id number] serial number [id number] Right ventricular lead: Wood Piler Medtronic. Model number: 6935M serial number [id number] Left bundle pacing lead: Wood Piler Medtronic model #3830 serial number [id number] Measured data: Right atrial lead: P waves measure 2.7 mV. Pacing threshold was 1.2 V at 0.5 ms with a pacing impedance of 857 ohms Right ventricular lead: R waves measured 11 mV. Pacing threshold was 0.3 V at 0.5 ms with a pacing impedance of 580 ohms Left bundle pacing lead: R wave measured 12.3 mV. Pacing threshold was 0.8 V at 0.5 ms with a pacing impedance of 904 ohms Impression: Successful implantation of biventricular ICD with left bundle pacing lead [facility] Electrophysiology codes EP Procedure 1: Electrophysiology: 06013 Bundle of His recording Pacing Procedure 1: Pacin Insert permanent lead, single ICD Procedure 1: ICD: 05304 Insert single or dual ICD system PG Moderate Sedation Codes Moderate Sedation Codes Procedure 2: Sedation/Anesthesia: 26733 Mod Sedation by the same physician; Ea [id number] Minutes
--- NOTE | 2023-05-17 09:29 | Post Anesthesia Assessment ---
Date of Service May 17, 2023 Post Sedation Assessment Vital Signs Pulse Resp BP Pulse Ox O2 Del Method 05/17/23 07:18 82 14 120/83 98 Room Air Recovery Score Activity: Moves 4 extremities Respiration: Deep Breath/Cough Circulation: +/-20% PreAnes Value Consciousness: Fully Awake Oxygen Saturation: > 92% On Room Air Discharge Sedation Level of Care: Fast Track Phase II Post Sedation Plan On clinical assessment, the patient appears to have tolerated the sedation without complications. Patient is recovering as anticipated. Patient will continue to be monitored by nursing and may be discharged when sedation discharge criteria are met per below protocol. Upon Completions of procedure up to 15 minutes continue every 5 minute vital signs and the P.A.R. score; then discharge to a Phase I or Fast Track to Phase II per the following guidelines: * Discharge Patient to appropriate Phase II area if PAR is 8 or greater or return to pre- procedure baseline. The post - procedure orders will be as directed. * If PAR score is less than 8 or not return to pre-procedure baseline then patient will follow Phase I monitoring till PAR is reached for Phase II. The Phase I may be done in procedure room or may call to secure a Phase I area. * If naloxone or flumazenil are used for reversal, hold in Phase I for continued monitoring from when last reversal dose was given for a minimum of 60 minutes or longer pending the nurse and/or physician discretion of patient condition before discharge to Phase II. Please call the Sedation Physician to re-evaluate and complete post-note for discharge to Phase II area. Do NOT discharge from procedure sedation or Phase 1 until post- sedation evaluation note is complete by procedure /sedation MD Sedation Discharge Instructions to be given to the patient at discharge to home.
[2023-05-17] MEDS ORDERED: ceFAZolin 1000MG 1,000 MG/7.5 ML SYR IV ONE (16:30)
[2023-05-17 17:04] LABS: Creatinine Clr Calc Pharmacy 47.9 ml/min; Est GFR (African American) 68.3 ml/min; Est GFR (Non-African American) 58.9 ml/min
--- NOTE | 2023-05-17 17:18 | Electrocardiogram Report ---
Test Reason : Blood Pressure : / mmHG Vent. Rate : 092 BPM Atrial Rate : 092 BPM P-R Int : 146 ms QRS Dur : 140 ms QT Int : 436 ms P-R-T Axes : 080 -22 125 degrees QTc Int : 539 ms Atrial-sensed ventricular-paced rhythm Abnormal ECG When compared with ECG of 12-SEP-2017 18:20, Electronic ventricular pacemaker has replaced Sinus rhythm Confirmed by Nba Lim ([id number]) on 05/17/2023 5:17:39 PM Referred By: Zaki Lim Confirmed By:Zaki Lim
[2023-05-17] MEDS ORDERED: FUROSEMIDE 20 MG TAB PO ONE (17:39)
[2023-05-17] MEDS: ACETAMINOPHEN 325 MG TAB PO PRN (20:34)
[2023-05-17] MEDS: carvediloL 6.25 MG TAB PO SCH (20:37)
[2023-05-17] MEDS: VALSARTAN/SACUBITRIL 26/24MG TAB PO SCH (20:37)
[2023-05-17] MEDS: GLIMEPIRIDE 2 MG TAB PO SCH (20:38)
[2023-05-17] MEDS: DOCUSATE SODIUM 100 MG CAP PO SCH (20:38)
[2023-05-18] MEDS: ACETAMINOPHEN 325 MG TAB PO PRN ×2 (02:37→09:10)
--- NOTE | 2023-05-18 07:43 | XRay Report ---
TWO VIEW CHEST CLINICAL HISTORY: Pacemaker implantation. FINDINGS: PA and lateral chest radiographs are compared to study dated 07/14/2022 and correlated with chest CT dated 12/22/2022. The patient is status post midline sternotomy. A 3-lead cardiac AICD has bee n implanted and partially obscures left upper chest. Leads project over the right atrial appendage an d the ventricles. The heart is mildly enlarged noting atherosclerotic calcification of the thoracic u reter. The pulmonary vasculature is noncongested. Chronic interstitial thickening is similar to previ ous. There is mild bibasilar scarring/atelectasis. No airspace consolidation or pleural effusion is i dentified. There is no pneumothorax. The skeletal structures are osteopenic. The bony thorax appears intact. Degenerative change is noted in the shoulders and spine. Postsurgical change is seen in the r ight shoulder. Cholecystectomy clips are noted in the right upper quadrant. IMPRESSION: 1. A 3-lead cardiac AICD has been implanted as above. No pneumothorax is identified post procedure. 2. Cardiomegaly without radiographic evidence of congestive failure. 3. No airspace consolidation or pleural effusion is identified ACT 112: Negative or not required by law. Electronically signed by: Silviano Ortega M.D. 05/18/2023 7:42 AM
[2023-05-18] MEDS ORDERED: ASPIRIN 81 MG ECTAB PO SCH (09:00)
[2023-05-18] MEDS ORDERED: POTASSIUM CHLORIDE CRTAB 20 MEQ TABCR PO SCH (09:00)
[2023-05-18] MEDS ORDERED: FUROSEMIDE 20 MG TAB PO SCH (09:00)
[2023-05-18] MEDS ORDERED: SPIRONOLACTONE 25 MG TAB PO SCH (09:00)
[2023-05-18] MEDS ORDERED: PANTOprazole 40 MG TAB PO SCH (09:00)
[2023-05-18] MEDS ORDERED: CLOPIDOGREL BISULFATE 75 MG TAB PO SCH (09:00)
[2023-05-18] MEDS ORDERED: ROSUVASTATIN CALCIUM 10 MG TAB PO SCH (09:00)
[2023-05-18] MEDS: carvediloL 6.25 MG TAB PO SCH (09:09)
[2023-05-18] MEDS: VALSARTAN/SACUBITRIL 26/24MG TAB PO SCH (09:09)
[2023-05-18] MEDS: DOCUSATE SODIUM 100 MG CAP PO SCH (09:09)
[2023-05-18] MEDS: GLIMEPIRIDE 2 MG TAB PO SCH (09:09)
--- NOTE | 2023-05-18 09:56 | Discharge Summary ---
Date of Service May 18, 2023 Admission HPI Per Admitting Provider The patient is a 77-year-old gentleman with a history of coronary disease and associated ischemic cardiomyopathy. He presents for implantation of a biventricular ICD as primary prevention against sudden cardiac and cardiac resynchronization therapy for left bundle branch block and persistently low ejection fraction. Principal Diagnosis Ischemic cardiomyopathy Discharge Exam Alert and oriented x3. Ambulatory around the room Normal respiratory effort Device implant site healing well without hematoma, drainage or erythema Discharge Data Allergies Allergy/AdvReac Type Severity Reaction Status Date / Time fluticasone [From Flonase] Allergy epistaxis Verified 05/17/23 07:34 metformin AdvReac Severe severe Verified 05/17/23 07:34 diarrhea even with ER prep NSAIDS (Non-Steroidal AdvReac Mild UPSET Verified 05/17/23 07:34 Anti-Inflamma STOMACH/ABDOMINAL PAINS Procedures Performed Operation Date: 05/17/23 08:00 Actual Procedures p ICD Insertion Single or Dual - Nba Lim MD s Lead LV (No Priopr Implant) - Nba Lim MD s Bundle of his Recording - Nba Lim MD Ordered Studies 05/17/23 07:15 EP Lab Images for PACS ONCE Hospital Course (1) Cardiomyopathy: Plan On day of admission the patient underwent implantation of a biventricular Medtronic ICD with left bundle pacing lead. There were no immediate compl ications. The following morning a chest x-ray demonstrated stable lead position without evidence of pneumothorax. Device interrogation revealed normal function of all leads. The patient was discharged home on his usual medical regimen. He was to refrain from lifting left arm above the shoulder behind the neck for 6 weeks. Needs to keep the wound dry and Steri-Strips intact for 1 week. Total Time Total Time Spent Total Time Spent (In Minutes): 20 Discharge Plan Discharge Items Patient Disposition: Home - Self-Care Reason For Visit: cardiomyopathy Discharge Diagnosis: cardiomyopathy Activity: Resume your previous activity Lifting: No more than 10 pounds Lifting Comment: No lifting left arm above shoulder behind neck for 6 weeks Bathing: Keep incision dry Bathing Comment: Keep wound dry and Steri-Strips intact until follow-up next week Driving/Machine Use: Resume 1 day after discharge Non-emergency contact: Weight Training Instructor Call non-emergency contact if: you have any medication questions, you have a fever, your wound has increased redness, your wound has increased drainage and your wound pain has increased Follow-up/Referrals: Zoey Bonilla CRNP [Primary Care Provider] - 05/28/23 8:00 am Diet: Carb Consistent or DM2 and Heart Healthy Addtl Attending Provider Instructions: none Pending Studies at Discharge: No Stand-Alone Forms: [facility] Medications and DC Order Prescriptions: Continued (DME) blood sugar diagnostic Strip See Dose Instructions .ROUTE .MEDSUPPLY Qty: 100 5RF Dose Instruction: As directed Rx Instructions: TEST SUGARS DAILY Dx E11.9 (DME) lancets [OneTouch Delica Lancets] 33 gauge misc See Dose Instructions .ROUTE .MEDSUPPLY Qty: 100 5RF Dose Instruction: As directed Rx Instructions: TEST SUGARS ONCE A DAY Dx E11.9 pantoprazole 40 mg tablet,delayed release (DR/EC) 40 mg PO QAM Qty: 90 3RF cetirizine [Zyrtec] 10 mg tablet 10 mg PO DAILY PRN (Reason: allergy symptoms) Qty: 90 3RF glimepiride 4 mg tablet 4 mg PO BID Qty: 180 3RF clopidogrel 75 mg tablet 75 mg PO DAILY Qty: 90 3RF Entresto 24-26 mg tablet 1 tab PO BID Qty: 60 5RF Hold Instructions: Home Medication placed on hold at Doctor's office furosemide 40 mg tablet 20 mg PO DAILY Qty: 45 3RF potassium chloride 20 mEq tablet extended release 20 meq PO DAILY Qty: 90 3RF sodium chloride [Saline Nasal] 0.65 % aerosol,spray 1 spray intranasal BID PRN (Reason: Congestion) Stiolto Respimat 2.5-2.5 mcg/actuation mist 2 inh INH UD PRN (Reason: Shortness Of Breath Or Wheezing) aspirin 81 mg tablet,delayed release (DR/EC) 81 mg PO DAILY Qty: 90 3RF docusate sodium 100 mg tablet 100 mg PO BID Patient Comments: while taking narcotic oxycodone 5 mg tablet 5 mg PO Q4H PRN (Reason: Pain (Scale Score 4-6)) dapagliflozin propanediol 10 mg tablet 10 mg PO DAILY Hold Instructions: Home Medication placed on hold at Doctor's office rosuvastatin 10 mg tablet 10 mg PO DAILY carvedilol 6.25 mg tablet 6.25 mg PO BID Qty: 180 3RF Rx Instructions: must administer with a meal/food spironolactone 25 mg tablet 25 mg PO DAILY Qty: 30 5RF acetaminophen [Acetaminophen Extra Strength] 500 mg Tablet 500 mg PO Q6H PRN (Reason: Pain) guaifenesin [Expectorant] 200 mg Tablet 200 mg PO Q4H PRN (Reason: allergies) nitroglycerin [Nitrostat] 0.4 mg tablet, sublingual 0.4 mg sublingual Q5M PRN (Reason: chest pain) Qty: 25 2RF Rx Instructions: Take 1 tab sublingual every 5 min as needed for chest pain. Max 3 doses per episode. Call 911 if chest pain persists after 1st dose. Discharge Orders: Discharge Order (Routine); Ordered 05/18/23 Ordered By: Nba Lim Admission Data Admit Date/Time: 05/17/23 10:29 Attending Provider: Nba Lim Admit Provider: Nba Lim Primary Care Provider: Zoey Bonilla Other Interventions: Discharge Summary Assessment (RN) Last Done: 05/18/23 10:05 Coding Level of Care Code 33465 IN/OBS DISCH 30 MIN/LESS Diagnoses Cardiomyopathy I42.9
== END 2023-05-18 10:54 | disposition home or self-care (01) ==
LOC: 2S 06:56 → EP 06:56
PROC: EPB.ICD (2023-05-17 08:00)